=== PATIENT | male | born 1950 | race Caucasian/White ===

== ENCOUNTER 2016-12-17 04:19 | Emergency (ER) | payer MEDICARE ==
[2016-12-17 04:34] VITALS: RESP 18
--- NOTE | 2016-12-17 05:21 | XR ---
EXAM: XR Chest, 2 Views CLINICAL HISTORY: Reason: Cough and congestion TECHNIQUE: Frontal and lateral views of the chest. COMPARISON: No relevant prior studies available. FINDINGS: Lungs: Thin linear atelectasis or scarring at the left base. No defined infiltrate. Pleural space: Unremarkable. No effusion or pneumothorax. Heart: Unremarkable. No cardiomegaly. Mediastinum: Unremarkable. Bones/joints: Multilevel degenerative changes including spine and shoulders. IMPRESSION: No acute intrathoracic abnormality or etiology of the patient's symptoms detected.
--- NOTE | 2016-12-17 07:35 | ED ---
General Adult HPI - General Chief complaint: Upper Respiratory Infection Stated complaint: congestion Time Seen by Provider: 12/17/16 07:00 Source: patient, RN notes reviewed Mode of arrival: ambulatory Limitations: no limitations - History of Present Illness Initial comments: Patient is a pleasant 66-year-old male presenting to the emergency department with sinus congestion. Onset of symptoms was several days ago. Patient has drainage. Patient has a mild sore throat and occasional cough. No dyspnea. Patient did have fevers however those have resolved. Patient has had similar problems previously associated with sinus problems. - Related Data Previous Rx's Medication Instructions Recorded Amoxicillin 500 mg PO Q8H #30 capsule 12/17/16 Allergies Allergy/AdvReac Type Severity Reaction Status Date / Time No Known Allergies Allergy Verified 12/17/16 04:34 Review of Systems ROS Statement: Those systems with pertinent positive or pertinent negative responses have been documented in the HPI. ROS Other: All systems not noted in ROS Statement are negative. Constitutional: Denies: fever Eyes: Denies: eye pain ENT: Reports: ear pain, throat pain, congestion Respiratory: Reports: cough. Denies: dyspnea Cardiovascular: Denies: chest pain Endocrine: Denies: polydipsia Gastrointestinal: Denies: abdominal pain Genitourinary: Denies: urgency, dysuria Musculoskeletal: Denies: back pain Skin: Denies: rash Neurological: Denies: weakness Past Medical History Past Medical History: No Reported History History of Any Multi-Drug Resistant Organisms: None Reported Past Surgical History: Hernia Repair Additional Past Surgical History / Comment(s): achilles tendon, bilat Past Psychological History: No Psychological Hx Reported Smoking Status: Current every day smoker Past Alcohol Use History: Occasional General Exam Limitations: no limitations General appearance: alert, in no apparent distress Head exam: Present: atraumatic Eye exam: Present: normal appearance, PERRL ENT exam: Present: other (Mild pharyngeal erythema. Tenderness over the frontal , ethmoid, and maxillary sinuses.) Neck exam: Present: normal inspection. Absent: tenderness, meningismus, lymphadenopathy Respiratory exam: Present: normal lung sounds bilaterally Cardiovascular Exam: Present: regular rate, normal rhythm GI/Abdominal exam: Present: soft. Absent: tenderness Extremities exam: Present: normal inspection. Absent: pedal edema, calf tenderness Neurological exam: Present: alert Psychiatric exam: Present: normal affect, normal mood Skin exam: Present: normal color Course Vital Signs 12/17/16 04:30 Temperature 98.5 F Pulse Rate 79 Respiratory 18 Rate Blood Pressure 134/61 O2 Sat by Pulse 95 Oximetry Disposition Clinical Impression: Sinusitis Disposition: HOME SELF-CARE Condition: Stable Instructions: Sinusitis (ED) Additional Instructions: Please follow-up with primary care physician in the next few days for recheck. Return for difficulty breathing, fevers, worsening or changing symptoms or other concerns. Saline nasal spray 4 times daily. Prescriptions: Amoxicillin 500 mg PO Q8H #30 capsule Referrals: Jenaro Rivera DO [Primary Care Provider] - 1-2 days Time of Disposition: 07:35
[2016-12-17 07:53] VITALS: BP 123/64; PULSE 67; TEMP 97.3
== END 2016-12-17 07:53 | disposition home or self-care (01) ==
LOC: EC 04:19
DX: J32.9 Chronic sinusitis, unspecified (principal); F17.200 Nicotine dependence, unspecified, uncomplicated
CPT/HCPCS: 71020; 99283

== ENCOUNTER 2018-03-25 07:46 | Day surgery (SDC) | payer MEDICARE ==
[2018-03-24 08:25] VITALS: BMI 31.6
[~2018-03-25 07:46] MED LIST: LACTATED RINGERS 1,000 ML IV SCH
[2018-03-25 09:05] VITALS: TEMP 97
[2018-03-25] MEDS ORDERED: LIDOCAINE 1% 20 ML VIAL (10MG/ML) FOR IV START INTRADERMA ONE (09:12)
[2018-03-25] MEDS ORDERED: LIDOCAINE 1% INJ 10MG/ML (20 ML MDV) ONE (09:27)
[2018-03-25] MEDS ORDERED: PROPOFOL 10 MG/ML 20 ML VIAL IV ONE (09:27)
[2018-03-25 09:59] VITALS: RESP 18
--- NOTE | 2018-03-25 10:02 | P.PCN ---
Date of Procedure: 03/25/18 Procedure(s) Performed: Procedure: Total colonoscopy. Preoperative diagnosis: Screening for neoplasia. Postoperative diagnosis: Sigmoid diverticulosis with no evidence of acute diverticulitis, strictures, polyps or cancer. Preparation: HalfLytely prep. Sedation: Was provided by anesthesia. Brief clinical history: The patient is a 67-year-old male who is scheduled for this evaluation for screening for neoplasia age being his risk factor. His prior exam was in 2007. The patient has no abdominal complaints, bleeding or anemia. Procedure: With the patient on his left lateral decubitus position and after informed consent and adequate sedation, the perianal area was inspected and it did not show any fissures or fistulas. There were no masses felt on digital rectal examination. The Olympus CFQ 160L video colonoscope was then inserted in the rectum in the usual fashion and advanced to the cecum. There were several diverticular orifices seen scattered in the sigmoid but I saw no evidence of acute diverticulitis or strictures. No polyps or tumors were seen or any other pathology. I retroflexed the endoscope in the rectum before the endoscope was withdrawn. The patient tolerated the procedure well. Plan: The patient was reassured. Discussed dietary measures. He will follow up with you as planned and the exam in 10 years.
[2018-03-25 10:15] VITALS: BP 131/71; PULSE 52
== END 2018-03-25 10:36 | disposition home or self-care (01) ==
LOC: ORWHC2ENDO 07:46
DX: Z12.11 Encounter for screening for malignant neoplasm of colon (principal); K57.30 Diverticulosis of large intestine without perforation or abscess without bleeding; Z85.46 Personal history of malignant neoplasm of prostate; Z90.79 Acquired absence of other genital organ(s)
CPT/HCPCS: J2001; J2704; G0121

== ENCOUNTER → 2018-06-23 | Outpatient (CLI) | payer MEDICARE | END | disposition home or self-care (01) | LOC: LABWHC1 09:51 | PROVIDERS: ATTEND Family Medicine | DX: R73.03 Prediabetes (principal) | CPT/HCPCS: 97802 ==

== ENCOUNTER 2020-05-17 14:46 | Inpatient (IN) | payer MEDICARE ==
[2020-05-17] MEDS ORDERED: ACETAMINOPHEN TAB 500 MG TAB PO STA (14:56)
--- NOTE | 2020-05-17 15:00 | ED ---
General Adult HPI - General Stated complaint: Weakness/Fall Time Seen by Provider: 05/17/20 14:48 Source: patient, EMS Mode of arrival: EMS Limitations: no limitations - History of Present Illness Initial comments: 70-year-old male patient with a mostly benign past medical history presents to the emergency department today for evaluation of weakness, shortness of breath, multiple falls. Patient states that he worked in the yard all weekend. States Thursday evening he started to feel very weak and rundown. Patient states that at times he was unable to get out of his chair. States he's had 2 or 3 falls over the last couple of days. Denies any known injury. Patient states that he is also having some shortness of breath. Denies any cough, nasal congestion, sore throat. States he did have one episode of vomiting on Thursday. States that he has had some sweats which he assumed was related to fever so he has been taking Tylenol. Patient is somewhat confused and having difficulty with his timeline. Patient denies any recent rash, chest pain, abdominal pain, diarrhea, c onstipation, back pain, numbness, tingling, dizziness, hematuria, dysuria, urinary urgency, urinary frequency, headache, visual changes, or any other complaints. - Related Data Home Medications Medication Instructions Recorded Confirmed Atorvastatin [Lipitor] 20 mg PO DAILY 05/17/20 05/17/20 Chlorhexidine Gluconate [Peridex] 15 ml PO BID 05/17/20 05/17/20 Allergies Allergy/AdvReac Type Severity Reaction Status Date / Time No Known Allergies Allergy Verified 05/17/20 16:27 Review of Systems ROS Statement: Those systems with pertinent positive or pertinent negative responses have been documented in the HPI. ROS Other: All systems not noted in ROS Statement are negative. Past Medical History Past Medical History: Cancer Additional Past Medical History / Comment(s): PROSTATE CANCER History of Any Multi-Drug Resistant Organisms: None Reported Past Surgical History: Hernia Repair Additional Past Surgical History / Comment(s): achilles tendon- bilat ANKLES. COLONOSCOPY. PROSTATE REMOVED Past Anesthesia/Blood Transfusion Reactions: No Reported Reaction Past Psychological History: No Psychological Hx Reported Smoking Status: Current every day smoker Past Alcohol Use History: Occasional Past Drug Use History: None Reported - Past Family History Mother Family Medical History: No Reported History General Exam Limitations: no limitations General appearance: alert, in no apparent distress, other (This is a well- developed, well-nourished adult male patient in no acute distress. Vital signs upon presentation temperature 103.1F oral, pulse 96, respirations 20, blood pressure 127/64, pulse ox 97% on 2 L via nasal cannula.) Eye exam: Present: normal appearance, PERRL, EOMI. Absent: scleral icterus, conjunctival injection, periorbital swelling ENT exam: Present: normal exam, normal oropharynx, mucous membranes moist, other (Patient has a purple discoloration noted to the bilateral earlobes and pinna) Respiratory exam: Present: normal lung sounds bilaterally. Absent: respiratory distress, wheezes, rales, rhonchi, stridor Cardiovascular Exam: Present: regular rate, normal rhythm, normal heart sounds. Absent: systolic murmur, diastolic murmur, rubs, gallop, clicks GI/Abdominal exam: Present: soft, normal bowel sounds. Absent: distended, tenderness, guarding, rebound, rigid Neurological exam: Present: alert, CN II-XII intact. Absent: oriented X3 (Oriented 2) Psychiatric exam: Present: normal affect, normal mood Skin exam: Present: warm, dry, intact, normal color. Absent: rash Course Vital Signs 05/17/20 05/17/20 05/17/20 14:47 14:49 15:00 Temperature 103.1 F H Pulse Rate 96 Respiratory 20 Rate Blood Pressure 127/64 127/64 O2 Sat by Pulse 97 93 L 95 Oximetry 05/17/20 05/17/20 05/17/20 15:30 16:00 16:30 Temperature Pulse Rate Respiratory Rate Blood Pressure 128/61 128/68 103/58 O2 Sat by Pulse 94 L 96 Oximetry 05/17/20 05/17/20 05/17/20 17:00 17:30 17:43 Temperature 102.8 F H Pulse Rate Respiratory Rate Blood Pressure 118/52 128/60 O2 Sat by Pulse 97 97 Oximetry EKG Findings - EKG Comments: EKG Findings:: EKG obtained at 1509 shows sinus rhythm with marked sinus arrhythmia. Incomplete right bundle branch block. Ventricular rate of 90, [place] interval 152, QRS duration 102, QT 326, QTC 398. Medical Decision Making - Medical Decision Making 70-year-old male patient presented to the emergency department today for evaluation of increasing weakness, shortness of breath, sweats, and confusion. Physical examination did reveal clear equal lung sounds. He was 92-94% on room air upon arrival, tachypneic. Chest x-ray was obtained and did show an 8 cm masslike consolidation in the left upper lobe this was concerning for possible neoplasm. Labs reviewed and did reveal elevated white blood cell count at 15.4 with a left shift neutrophils at 14.2. D-dimer was 4.06. Sodium 129. BUN 32, glucose 158. LDH was 732, C-reactive protein 423.9. Chronic virus was negative. CT chest angiography was obtained to rule out pulmonary embolism and also evaluate the mass in the left lung. Results show evidence for consolidation consistent with bronchopneumonia. Patient be started on azithromycin, Zosyn, and Vanco for possible atypical pneumonia. We also did perform CT brain and C-spine as patient has had numerous falls and was somewhat confused upon arrival, this is negative for any acute injury. Patient will be admitted to the hospital, oxygen therapy continued. He will be rehydrated. Patient is agreeable with this plan. - Lab Data Result diagrams: 05/17/20 15:20 05/17/20 15:20 Lab Results 05/17/20 05/17/20 05/17/20 Range/Units 15:20 15:20 15:20 WBC 15.4 H (3.8-10.6) k/uL RBC 4.62 (4.30-5.90) m/uL Hgb 14.5 (13.0-17.5) gm/dL Hct 41.8 (39.0-53.0) % MCV 90.5 (80.0-100.0) fL MCH 31.4 (25.0-35.0) pg MCHC 34.7 (31.0-37.0) g/dL RDW 12.1 (11.5-15.5) % Plt Count 202 (150-450) k/uL MPV 6.8 Neutrophils % 93 % Lymphocytes % 2 % Monocytes % 3 % Eosinophils % 2 % Basophils % 1 % Neutrophils # 14.2 H (1.3-7.7) k/uL Lymphocytes # 0.3 L (1.0-4.8) k/uL Monocytes # 0.4 (0-1.0) k/uL Eosinophils # 0.2 (0-0.7) k/uL Basophils # 0.1 (0-0.2) k/uL PT 11.5 (9.0-12.0) sec INR 1.1 (<1.2) APTT 26.6 (22.0-30.0) sec D-Dimer 4.06 H (<0.60) mg/L FEU Sodium 129 L (137-145) mmol/L Potassium 4.1 (3.5-5.1) mmol/L Chloride 98 (98-107) mmol/L Carbon Dioxide 23 (22-30) mmol/L Anion Gap 8 mmol/L BUN 32 H (9-20) mg/dL Creatinine 1.22 (0.66-1.25) mg/dL Est GFR (CKD-EPI)AfAm 69 (>60 ml/min/1.73 sqM) Est GFR (CKD-EPI)NonAf 60 (>60 ml/min/1.73 sqM) Glucose 158 H (74-99) mg/dL Plasma Lactic Acid Lior (0.7-2.0) mmol/L Calcium 8.7 (8.4-10.2) mg/dL Magnesium 2.1 (1.6-2.3) mg/dL Total Bilirubin 0.8 (0.2-1.3) mg/dL AST 41 (17-59) U/L ALT 24 (4-49) U/L Alkaline Phosphatase 69 (38-126) U/L Lactate Dehydrogenase 732 H (313-618) U/L C-Reactive Protein 423.9 H (<10.0) mg/L Total Protein 7.1 (6.3-8.2) g/dL Albumin 3.8 (3.5-5.0) g/dL Coronavirus (PCR) (Not Detectd) 05/17/20 05/17/20 Range/Units 15:20 15:20 WBC (3.8-10.6) k/uL RBC (4.30-5.90) m/uL Hgb (13.0-17.5) gm/dL Hct (39.0-53.0) % MCV (80.0-100.0) fL MCH (25.0-35.0) pg MCHC (31.0-37.0) g/dL RDW (11.5-15.5) % Plt Count (150-450) k/uL MPV Neutrophils % % Lymphocytes % % Monocytes % % Eosinophils % % Basophils % % Neutrophils # (1.3-7.7) k/uL Lymphocytes # (1.0-4.8) k/uL Monocytes # (0-1.0) k/uL Eosinophils # (0-0.7) k/uL Basophils # (0-0.2) k/uL PT (9.0-12.0) sec INR (<1.2) APTT (22.0-30.0) sec D-Dimer (<0.60) mg/L FEU Sodium (137-145) mmol/L Potassium (3.5-5.1) mmol/L Chloride (98-107) mmol/L Carbon Dioxide (22-30) mmol/L Anion Gap mmol/L BUN (9-20) mg/dL Creatinine (0.66-1.25) mg/dL Est GFR (CKD-EPI)AfAm (>60 ml/min/1.73 sqM) Est GFR (CKD-EPI)NonAf (>60 ml/min/1.73 sqM) Glucose (74-99) mg/dL Plasma Lactic Acid Lior 1.7 (0.7-2.0) mmol/L Calcium (8.4-10.2) mg/dL Magnesium (1.6-2.3) mg/dL Total Bilirubin (0.2-1.3) mg/dL AST (17-59) U/L ALT (4-49) U/L Alkaline Phosphatase (38-126) U/L Lactate Dehydrogenase (313-618) U/L C-Reactive Protein (<10.0) mg/L Total Protein (6.3-8.2) g/dL Albumin (3.5-5.0) g/dL Coronavirus (PCR) Not Detected (Not Detectd) - Radiology Data Radiology results: report reviewed, image reviewed One view x-ray of the chest is obtained. Report was reviewed in its entirety. Impression by Dr. Helm shows suspicious left suprahilar mass or masslike consolidation new from prior study. Follow-up advised to rule out neoplasm. CT chest angiography for PE was obtained. Report was reviewed in its entirety. Impression by Dr. Barnes shows no evidence of pulmonary embolism. Left upper lobe airspace consolidation consistent with bronchopneumonia. CT brain C-spine without contrast is obtained. Report was reviewed in its entirety. Impression by Dr. Barnes shows negative computed tomography scan of the brain. Ethmoid sinusitis. Spondylotic changes of the cervical spine at C5 to 6 and C6 to 7. Moderate multilevel cervical hypertrophic facet arthrop athy. No fracture. Disposition Clinical Impression: Pneumonia Disposition: ADMITTED IP TO THIS [facility] Condition: Serious Decision to Admit Reason: Admit from EC Decision Date: 05/17/20 Decision Time: 17:31
[2020-05-17 15:36] LABS: Basophils # (A) 0.1 k/uL (0-0.2); Basophils % (A) 1 %; Eosinophils # (A) 0.2 k/uL (0-0.7); Eosinophils % (A) 2 %; HCT 41.8 % (39.0-53.0); HGB 14.5 gm/dL (13.0-17.5); Lymphocytes # (A) 0.3 k/uL (1.0-4.8); Lymphocytes % (A) 2 %; MCH 31.4 pg (25.0-35.0); MCHC 34.7 g/dL (31.0-37.0); MCV 90.5 fL (80.0-100.0); Mean Platelet Volume 6.8; Monocytes # (A) 0.4 k/uL (0-1.0); Monocytes % (A) 3 %; Neutrophils # (A) 14.2 k/uL (1.3-7.7); Neutrophils % (A) 93 %; Platelet Count 202 k/uL (150-450); RBC 4.62 m/uL (4.30-5.90); RDW 12.1 % (11.5-15.5); WBC 15.4 k/uL (3.8-10.6)
[2020-05-17] MEDS ORDERED: RX INFO: IV CONTRAST WAS GIVEN 1 EACH MISC MISCELLANE PRN (15:46)
[2020-05-17 15:49] LABS: Albumin 3.8 g/dL (3.5-5.0); Calcium 8.7 mg/dL (8.4-10.2); Magnesium 2.1 mg/dL (1.6-2.3); Potassium 4.1 mmol/L (3.5-5.1); Total Bilirubin 0.8 mg/dL (0.2-1.3); Total Protein 7.1 g/dL (6.3-8.2)
--- NOTE | 2020-05-17 15:50 | XR ---
EXAMINATION TYPE: XR chest 1V portable DATE OF EXAM: 05/17/2020 COMPARISON: Chest x-ray December 17, 2016.r HISTORY: Weakness. Fall injury. TECHNIQUE: Single AP portable frontal upright view of the chest is obtained. FINDINGS: There is new nearly 8 cm left suprahilar masslike consolidation . Diminished inspiration o n current study. The cardiac silhouette size is more prominent upper limits of normal. Stable lateral left basilar linear scarring and/or atelectasis. The osseous structures are intact. IMPRESSION: Suspicious left suprahilar mass or masslike consolidation new from prior study. Follow-u p advised to rule out neoplasm.
[2020-05-17 16:11] LABS: INR 1.1 (<1.2); Partial Thromboplastin Time 26.6 sec (22.0-30.0); Prothrombin Time 11.5 sec (9.0-12.0)
[2020-05-17 16:17] LABS: D-Dimer 4.06 mg/L FEU (<0.60)
[2020-05-17 16:23] LABS: C Reactive Protein 423.9 mg/L (<10.0)
[2020-05-17] MEDS ORDERED: PIPERACILLIN-TAZOBACTAM 3.375 GM in SODIUM CHLORIDE 0.9% 100 ML IVPB STA (16:39)
[2020-05-17] MEDS ORDERED: VANCOMYCIN IV PER PHARMACY 1 EACH MISC MISCELLANE PRN (16:40)
[2020-05-17] MEDS ORDERED: AZITHROMYCIN 500 MG in SODIUM CHLORIDE 0.9% 250 ML IVPB STA (16:40)
[2020-05-17] MEDS ORDERED: VANCOMYCIN 2,000 MG in SODIUM CHLORIDE 0.9% 500 ML 500 ML IVPB STA (16:52)
--- NOTE | 2020-05-17 17:13 | CT ---
EXAMINATION TYPE: CT chest angio for PE DATE OF EXAM: 05/17/2020 COMPARISON: None HISTORY: Abnormal CXR and labwork CT DLP: 576.7 mGycm Automated exposure control for dose reduction was used. CONTRAST: Performed with IV Contrast, patient injected with 100 mL of Isovue 370. There are 3-D post processed images. There is a 10 x 5 cm area of airspace consolidation in the left upper lobe adjacent to the major fiss ure. The other lung diaz are fairly clear. There is mild subsegmental atelectasis at the lung bases . Heart size is normal. There is no pericardial effusion. There is no pleural effusion. There is no mediastinal adenopathy. There are no hilar masses. There is normal contrast opacification of the pulmonary arteries. There are no filling defects. Bony thorax is intact. There is spurring in the thoracic spine. There is no compression fracture. Elio rnum is intact. Thoracic aorta is intact. There is no aneurysm or dissection. The ascending aorta barbara sures 3.3 cm. IMPRESSION: No evidence of pulmonary embolism. Left upper lobe airspace consolidation consistent with bronchopneu monia.
--- NOTE | 2020-05-17 17:17 | CT ---
EXAMINATION TYPE: CT brain francesco wo con DATE OF EXAM: 05/17/2020 COMPARISON: None HISTORY: Shortness of breath. CT DLP: 1762.9 mGycm Automated exposure control for dose reduction was used. There is no mass effect nor midline shift. There is no sign of intracranial hemorrhage. Ventricles rasmussen ve normal size. Calvarium is intact. There is no evidence of cerebral edema. Sella turcica appears no rmal. There is some ethmoid sinus mucosal thickening. Skull base is intact. There is normal aeration of the mastoid sinuses. Cervical vertebra have normal alignment. There is mild narrowing of C5-6 and C6-7 disc spaces with sp ur formation. There is mild multilevel cervical facet arthropathy. There is no evidence of cervical s pine fracture. IMPRESSION: Negative CT scan of the brain. Ethmoid sinusitis. Spondylotic changes in the cervical spine at C5-6 and C6-7. Moderate multilevel cervical hypertrophic facet arthropathy. No fracture.
[2020-05-17] MEDS ORDERED: PNEUMONIA PROTOCOL UTILIZED 1 EACH MISC PO PRN (17:29)
[2020-05-17] MEDS ORDERED: SODIUM CHLORIDE 0.9% 1,000 ML IV SCH (17:30)
[2020-05-17] MEDS ORDERED: IBUPROFEN 600 MG TAB PO STA (17:47)
[2020-05-17] MEDS ORDERED: SODIUM CHLORIDE 0.9% 1,000 ML IV ONE (17:49)
[2020-05-18 00:22] LABS: Appearance,Urine Clear (Clear); Bilirubin,Urine Negative (Negative); Blood,Urine Small (Negative); Color,Urine Yellow; Glucose,Urine (UA) Negative (Negative); Ketones,Urine 1+ (Negative); Leukocyte Esterase,Urine Negative (Negative); Mucus,Urine Rare /hpf; Nitrite,Urine Negative (Negative); Protein,Urine 1+ (Negative); RBC,Urine 4 /hpf (0-5); Specific Gravity,Urine >1.050 (1.001-1.035); Urobilinogen,Urine <2.0 mg/dL (<2.0); WBC,Urine 2 /hpf (0-5)
[2020-05-18] MEDS: PIPERACILLIN-TAZOBACTAM 3.375 GM in SODIUM CHLORIDE 0.9% 100 ML IVPB SCH ×4 (00:51→23:00)
[2020-05-18] MEDS: ACETAMINOPHEN TAB 500 MG TAB PO PRN ×4 (00:51→17:44)
[2020-05-18 03:28] LABS: Ferritin 815.8 ng/mL (22.0-322.0)
--- NOTE | 2020-05-18 06:52 | XR ---
EXAMINATION TYPE: XR chest 1V portable DATE OF EXAM: 05/18/2020 CLINICAL HISTORY: Difficulty breathing and covid-19 pneumonia progress study. TECHNIQUE: 2 AP portable frontal upright views of the chest are obtained. COMPARISON: Chest x-ray and CTA chest from one day earlier FINDINGS: Worsening masslike consolidation in the left upper lobe. Right lung is clear. No pleural e ffusion or pneumothorax seen bilaterally. Cardiac silhouette size stable and upper limits of normal w ith atherosclerotic change aortic knob. Degenerative change left glenohumeral joint noted. IMPRESSION: Worsening left upper lobe pneumonic consolidation
[2020-05-18] MEDS ORDERED: VANCOMYCIN 1,750 MG in SODIUM CHLORIDE 0.9% 500 ML 500 ML IVPB SCH (08:00)
[2020-05-18] MEDS ORDERED: DILTIAZEM DRIP BOLUS FROM BAG 1 MG SOLN IV ONE (08:29)
[2020-05-18] MEDS ORDERED: HEPARIN SODIUM,PORCINE 5,000 UNIT/ML 1 ML VIAL IV ONE (08:50)
[2020-05-18] MEDS ORDERED: HEPARIN SODIUM,PORCINE 5,000 UNIT/ML 1 ML VIAL IV PRN (08:50)
[2020-05-18] MEDS: DILTIAZEM 125 MG in SODIUM CHLORIDE 0.9% 100 ML IV SCH (09:07)
[2020-05-18] MEDS: HEPARIN SOD,PORK IN 0.45% NACL 25,000 UNIT in 0.45% NACL 1 250ML.BAG IV SCH (10:09)
[2020-05-18] MEDS: AZITHROMYCIN 500 MG in SODIUM CHLORIDE 0.9% 250 ML IVPB SCH (10:19)
[2020-05-18] MEDS: METOPROLOL TARTRATE 25 MG TAB PO SCH ×2 (10:22→21:03)
--- NOTE | 2020-05-18 11:27 | P.CRDCN ---
History of Present Illness Consult date: 05/18/20 History of present illness: CHIEF COMPLAINT: A. fib with RVR HISTORY OF PRESENT ILLNESS: This is a 70-year-old male with a past medical history significant for hyperlipidemia, prostate cancer, and nicotine dependence. 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 We have been asked to see the patient in consultation for A. fib with RVR. Patient initially presented to the hospital secondary to generalized weakness, fever, and shortness of breath. Patient thought he may have Covid. He was tested in the emergency room and was found to be negative. Initial EKG revealed sinus rhythm. However patient developed A. fib with RVR while in the emergency room. Patient examined at the bedside in the emergency room. Patient states he had an episode of atrial fibrillation approximately 20 years ago. He currently reports shortness of breath. He reports chest discomfort with deep inspiration otherwise he denies chest pain. He continues to feel very weak. He reports feeling palpitations. DIAGNOSTICS: EKG reveals A. fib with RVR Chest xray worsening left upper lobe consolidation Laboratory data: WBC 15.4. Hemoglobin 14.5. Platelet count 202. D-dimer 4.06. Sodium 129. Potassium 4.1. BUN 32. Creatinine 1.22. Lactic acid 1.7. Current home cardiac medications include Lipitor 20 mg daily REVIEW OF SYSTEMS: At the time of my exam: CONSTITUTIONAL: Denies fever or chills. HEENT: Denies blurred vision, vision changes, or eye pain. Denies hemoptysis CARDIOVASCULAR: Reports chest discomfort with deep inspiration. Reports palpitations. RESPIRATORY: Reports shortness of breath. GASTROINTESTINAL: Denies abdominal pain. Denies nausea or vomiting. HEMATOLOGIC: Denies bleeding disorders. GENITOURINARY: Denies any blood in urine. SKIN: Denies pruitis. Denies rash. PHYSICAL EXAM: VITAL SIGNS: Reviewed. GENERAL: Well-developed in no acute distress. HEENT: Head is normocephalic. Pupils are equal, round. Sclerae anicteric. Mucous membranes of the mouth are moist. Neck supple. No JVD or thyromegaly LUNGS: Respirations even and unlabored. Lungs diminished. HEART: Irregular rate and rhythm. S1 and S2 heard. ABDOMEN: Soft. Nondistended. Nontender. EXTREMITIES: Normal range of motion. No clubbing or cyanosis. Peripheral pulses intact. No lower extremity edema NEUROLOGIC: Awake and alert. Oriented x 3. ASSESSMENT: Right sided pneumonia New-onset A. fib with RVR Hyperlipidemia Nicotine dependence PLAN: Check TSH Obtain 2-D echo to assess cardiac structure and function Begin Cardizem drip at 5 mg Begin IV heparin Further recommendations pending patient's course Nurse practitioner note has been reviewed by physician. Signing provider agrees with the documented findings, assessment, and plan of care. Past Medical History Past Medical History: Cancer Additional Past Medical History / Comment(s): PROSTATE CANCER History of Any Multi-Drug Resistant Organisms: None Reported Past Surgical History: Hernia Repair Additional Past Surgical History / Comment(s): achilles tendon- bilat ANKLES. COLONOSCOPY. PROSTATE REMOVED Past Anesthesia/Blood Transfusion Reactions: No Reported Reaction Past Psychological History: No Psychological Hx Reported Smoking Status: Current every day smoker Past Alcohol Use History: Occasional Additional Past Alcohol Use History / Comment(s): SMOKING 1 PPD-FOR PAST 40 YEARS Past Drug Use History: None Reported Additional Drug Use History / Comment(s): drinks 6 beers a week - Past Family History Mother Family Medical History: No Reported History Medications and Allergies Home Medications Medication Instructions Recorded Confirmed Type Atorvastatin [Lipitor] 20 mg PO DAILY 05/17/20 05/17/20 History Chlorhexidine Gluconate [Peridex] 15 ml PO BID 05/17/20 05/17/20 History Allergies Allergy/AdvReac Type Severity Reaction Status Date / Time No Known Allergies Allergy Verified 05/17/20 16:27 Physical Exam Vitals: Vital Signs Temp Pulse Pulse Resp BP BP Pulse Ox 05/18/20 10:49 98.1 F 105 H 20 130/68 97 05/18/20 07:52 99.7 F H 117 H 18 103/75 99 05/18/20 05:53 99.6 F 77 16 92/60 95 05/18/20 04:50 103.0 F H 05/18/20 00:50 102.8 F H 05/17/20 23:00 18 115/66 97 05/17/20 20:41 98.2 F 05/17/20 17:43 102.8 F H 05/17/20 17:30 128/60 97 05/17/20 17:00 118/52 97 05/17/20 16:30 103/58 96 05/17/20 16:00 128/68 94 L 05/17/20 15:30 128/61 05/17/20 15:00 127/64 95 05/17/20 14:49 93 L 05/17/20 14:47 103.1 F H 96 20 127/64 97 Intake and Output 05/17/20 05/18/20 05/18/20 22:59 06:59 14:59 Other: Weight 113.398 kg Results 05/17/20 15:20 05/17/20 15:20 Cardiac Enzymes 05/17/20 Range/Units 15:20 AST 41 (17-59) U/L Lactate Dehydrogenase 732 H (313-618) U/L Coagulation 05/17/20 Range/Units 15:20 PT 11.5 (9.0-12.0) sec APTT 26.6 (22.0-30.0) sec CBC 05/17/20 Range/Units 15:20 WBC 15.4 H (3.8-10.6) k/uL RBC 4.62 (4.30-5.90) m/uL Hgb 14.5 (13.0-17.5) gm/dL Hct 41.8 (39.0-53.0) % Plt Count 202 (150-450) k/uL Comprehensive Metabolic Panel 05/17/20 Range/Units 15:20 Sodium 129 L (137-145) mmol/L Potassium 4.1 (3.5-5.1) mmol/L Chloride 98 (98-107) mmol/L Carbon Dioxide 23 (22-30) mmol/L BUN 32 H (9-20) mg/dL Creatinine 1.22 (0.66-1.25) mg/dL Glucose 158 H (74-99) mg/dL Calcium 8.7 (8.4-10.2) mg/dL AST 41 (17-59) U/L ALT 24 (4-49) U/L Alkaline Phosphatase 69 (38-126) U/L Total Protein 7.1 (6.3-8.2) g/dL Albumin 3.8 (3.5-5.0) g/dL Current Medications Generic Name Dose Route Start Last Admin Trade Name Freq PRN Reason Stop Dose Admin Acetaminophen 1,000 mg 05/17/20 17:47 05/18/20 04:53 Acetaminophen Tab 500 Mg Tab PO 1,000 mg Q6HR PRN Administration Fever and/ or Pain Atorvastatin Calcium 20 mg 05/18/20 09:00 Atorvastatin 20 Mg Tab PO DAILY KAN Heparin Sodium (Porcine) 0 unit 05/18/20 08:50 Heparin Sodium,Porcine 5,000 Unit/Ml 1 Ml Vial IV PER PROTOCOL PRN Low PTT Protocol Vancomycin HCl 1,750 mg/ 500 mls @ 167 mls/hr 05/18/20 08:00 Sodium Chloride IVPB Q12H KAN Sodium Chloride 1,000 mls @ 80 mls/hr 05/17/20 17:30 05/17/20 18:04 Saline 0.9% IV 80 mls/hr .[id number] KAN Administration Piperacillin Sod/Tazobactam 100 mls @ 25 mls/hr 05/18/20 00:00 05/18/20 10:09 Sod 3.375 gm/ Sodium Chloride IVPB 05/25/20 00:01 25 mls/hr Q8HR KAN Administration Azithromycin 500 mg/ Sodium 250 mls @ 250 mls/hr 05/18/20 09:00 05/18/20 10:19 Chloride IVPB 250 mls/hr DAILY KAN Administration Diltiazem HCl 125 mg/ Sodium 125 mls @ 5 mls/hr 05/18/20 08:30 05/18/20 09:07 Chloride IV Not Given .Q24H KAN 5 MG/HR Heparin Sodium/Sodium Chloride 250 mls @ 9.979 mls/hr 05/18/20 09:00 05/18/20 10:09 25,000 unit/ Sodium Chloride IV 8.8 units/kg/hr .Q24H KAN 9.979 mls/hr Administration Protocol 8.8 UNITS/KG/HR Metoprolol Tartrate 25 mg 05/18/20 09:00 05/18/20 10:22 Metoprolol Tartrate 25 Mg Tab PO 25 mg BID KAN Administration Miscellaneous Information 1 each 05/17/20 15:46 Rx Info: Iv Contrast Was Given 1 Each Misc MISCELLANE 05/19/20 15:46 DAILY PRN Per Protocol Miscellaneous Information 1 each 05/17/20 17:29 Pneumonia Protocol Utilized 1 Each Misc PO ONCE PRN Per Protocol Miscellaneous Information 0 each 05/19/20 19:00 Vancomycin Trough Due 1 Each Misc MISCELLANE 05/19/20 19:01 DIRECTED ONE Intake and Output 05/17/20 05/18/20 05/18/20 22:59 06:59 14:59 Other: Weight 113.398 kg Patient Weight 05/19/20 06:59 Weight 113.398 kg 05/17/20 15:20 05/17/20 15:20
[2020-05-18] MEDS: ATORVASTATIN 20 MG TAB PO SCH (11:35)
--- NOTE | 2020-05-18 11:39 | ECHOF ---
Referral Reason:new onset afib, LV function MEASUREMENTS -------- HEIGHT: 182.9 cm WEIGHT: 113.4 kg BP: RVIDd: 2.7 cm (< 3.3) IVSd: 1.4 cm (0.6 - 1.1) LVIDd: 4.3 cm (3.9 - 5.3) LVPWd: 1.4 cm (0.6 - 1.1) IVSs: 1.8 cm LVIDs: 3.6 cm LVPWs: 2.1 cm LA Diam: 1.8 cm (2.7 - 3.8) Ao Diam: 3.7 cm (2.0 - 3.7) RAP: 5.00 mmHg RVSP: 16.42 mmHg FINDINGS -------- Atrial fibrillation. This was a techncally difficult study with suboptimal views, , Definity utilized for enhancement of i mages. The left ventricular size is normal. There is mild concentric left ventricular hypertrophy. Overa ll left ventricular systolic function is low-normal with, an EF between 50 - 55 %. The right ventricle is normal in size. The left atrial size is normal. The right atrial size is normal. Lumason used There is mild aortic valve sclerosis. The mitral valve was not well visualized. There is trace mitral regurgitation. The tricuspid valve appears structurally normal. Trace tricuspid regurgitation present. Right bill tricular systolic pressure is normal at < 35 mmHg. Unable to estimate RVSP due to inadequate TR jet spectral doppler profile. The pulmonic valve was not well visualized. The aortic root size is normal. There is no pericardial effusion. CONCLUSIONS -------- 1. This was a techncally difficult study with suboptimal views, , Definity utilized for enhancement o f images. 2. There is mild concentric left ventricular hypertrophy. 3. Overall left ventricular systolic function is low-normal with, an EF between 50 - 55 %. 4. The left atrial size is normal. 5. Lumason used 6. There is mild aortic valve sclerosis. 7. There is trace mitral regurgitation. 8. Trace tricuspid regurgitation present. 9. The pulmonic valve was not well visualized. TOP BOTTOM ATTACHING MACHINE OPERATOR: Kim Sullivan RDCS
[2020-05-18 11:43] LABS: Basophils % (A) 0 %; Eosinophils % (A) 0 %; HCT 44.2 % (39.0-53.0); HGB 14.8 gm/dL (13.0-17.5); Lymphocytes # (A) 0.5 k/uL (1.0-4.8); Lymphocytes % (A) 4 %; MCH 30.8 pg (25.0-35.0); MCHC 33.5 g/dL (31.0-37.0); Mean Platelet Volume 9.1; Monocytes # (A) 0.5 k/uL (0-1.0); Monocytes % (A) 4 %; Neutrophils # (A) 13.7 k/uL (1.3-7.7); Neutrophils % (A) 92 %; Platelet Count 235 k/uL (150-450); RDW 12.7 % (11.5-15.5); WBC 14.9 k/uL (3.8-10.6)
[2020-05-18 12:19] LABS: INR 1.2 (<1.2); Partial Thromboplastin Time 56.5 sec (22.0-30.0); Prothrombin Time 12.2 sec (9.0-12.0)
[2020-05-18] MEDS ORDERED: ENOXAPARIN 40 MG/0.4 ML SYRINGE SQ SCH (13:15)
[2020-05-18] MEDS: LACTATED RINGERS 1,000 ML IV SCH ×2 (14:11→22:59)
[2020-05-18] MEDS: ALBUTEROL HFA INHALER INHALATION SCH ×2 (16:58→20:59)
[2020-05-18] MEDS ORDERED: FUROSEMIDE 10 MG/ML 2 ML VIAL IV ONE (17:47)
[2020-05-18] MEDS ORDERED: FUROSEMIDE 10 MG/ML 2 ML VIAL ONE (17:47)
[2020-05-18] MEDS: TAMSULOSIN 0.4 MG CAP.ER.24H PO SCH (18:04)
[2020-05-18] MEDS: DEXAMETHASONE SOD PHOSPHATE 10 MG/ML 1 ML VIAL IV SCH (18:04)
--- NOTE | 2020-05-18 18:17 | P.PN ---
Progress Note - Text Progress Note Date: 05/18/20 Rapid response team was activated on this patient due to hypoxia. Oxygen saturations were down to 82% on 2 L. Patient was immediately switched to high flow nasal cannula at 10 L. He is also febrile with a temperature of 103. Rest of his vital signs were okay. On exam patient seemed tachypniec, using accessory muscles and not able to finish sentences. He is slightly confused currently, not able to provide a coherent history. Chest examination revealed diffuse crackles all over the chest diaz. Prior workup was reviewed, it seems like he likely has suspected 19 pneumonia as well as atrial fibrillation with RVR. Plan -Pulmonary critical care consult -Start Decadron -Lasix 20 mg IV 1 -ABG stat -High flow NC -Continue abx Code status discussed patient wants to be full code.
[2020-05-18 18:35] LABS: ABG PCO2 33 mmHg (35-45); ABG PH 7.44 (7.35-7.45); Allen Test Performed? Yes
[2020-05-18 18:36] LABS: ABG Base Excess -1.4 mmol/L; ABG HCO3 23 mmol/L (21-25); ABG PO2 63 mmHg (83-108); ABG TCO2 24 mmol/L (19-24)
[2020-05-18] MEDS ORDERED: IPRATROPIUM-ALBUTEROL 3 ML NEB INHALATION SCH (20:00)
--- NOTE | 2020-05-18 20:52 | P.HPIM ---
History of Present Illness H&P Date: 05/18/20 Chief Complaint: Short of breath History of presenting complaint: This is 70-year-old patient who was working in his yard all weekend. Thursday evening he started feeling very weak and rundown. To the point that he is unable to get out of his chair. As a result. 2 or 3 falls last couple days. Also short of breath. He had vomited 1. Also spoke perspiring. Patient was somewhat delirious. No diarrhea no constipation no back pain no urinary symptoms. Normally in good health. Long-standing smoker. No stigmata history this morning sometimes being distant with his history. Patient developed A. fib with rapid ventricular rate in the ER without in the 150s. Started IV heparin and Cardizem drip. Review of systems: GEN.: Peak tired rundown and febrile EYES: None HEENT: None NECK: None RESPIRATORY: Cough shortness of breath CARDIOVASCULAR: None GASTROINTESTINAL: None GENITOURINARY: None MUSCULOSKELETAL: None LYMPHATICS: None HEMATOLOGICAL: None PSYCHIATRY: Per delirious NEUROLOGICAL: No focal weakness INVESTIGATIONS, reviewed in the clinical context: Prostate cancer, hernia repair, Achilles tendon repair, prostatectomy Social history: Patient has a [email or web address] business. Smokes a pack a day for close to 40 years. Drinks about 6 beers a week. . Family history: Reviewed, noncontributory to presentation Physical examination: VITAL SIGNS: 103, 117, 22, 103 with 75, 90% on room air GENERAL: BMI 30.4, propped in bed, tired a bit delirious. EYES: Pupils equal. Conjunctiva normal. HEENT: External appearance of nose and ears normal, oral cavity grossly normal. NECK: JVD not raised; masses not palpable. HEART: First and second heart sounds are normal; no edema. LUNGS: Respiratory rate increased, some decreased breaths on some crackles. ABDOMEN: Soft, nontender, liver spleen not palpable, no masses palpable. PSYCH: Able to answer some questions otherwise deliriousl. NEUROLOGICAL: Cranial nerves grossly intact; no facial asymmetry, power and sensation grossly intact. LYMPHATICS: No lymph nodes palpable in the axilla and neck INVESTIGATIONS, reviewed in the clinical context: White count 15.4 neutrophils 14.2 lymphocytes decreased to 0.3 D-dimer 4.06 sodium 129 creatinine 1.2 to LDH 732 CRP 423.9 protocol Gisella and 1.11 Coronavirus P/Cr-not detected Chest x-ray film personally reviewed by me-large area of consolidation on the left upper lobe Chest CTA-negative for PE, left upper lobe airspace consolidation EKG tracing personally reviewed by me-normal sinus rhythm 2-D echocardiogram-EF 50-55% Assessment: -Large left upper lobar pneumonia, suspect gram-negative organism -Severe sepsis secondary to above -Acute delirium but embolic encephalopathy from above -Hyponatremia likely from decreased fluid intake -Clinical dehydration -Paroxysmal Atrial fibrillation with a rapid ventricular rate. With a prior h istory of the same Plan: Patient was started on IV Zosyn bronchodilator. Patient also put on IV heparin and IV Cardizem drip. Consultation was made to pulmonary and cardiology. Also put on IV fluids 1 25 mL an hour. Past Medical History Past Medical History: Cancer Additional Past Medical History / Comment(s): PROSTATE CANCER History of Any Multi-Drug Resistant Organisms: None Reported Past Surgical History: Hernia Repair Additional Past Surgical History / Comment(s): achilles tendon- bilat ANKLES. COLONOSCOPY. PROSTATE REMOVED Past Anesthesia/Blood Transfusion Reactions: No Reported Reaction Past Psychological History: No Psychological Hx Reported Smoking Status: Current every day smoker Past Alcohol Use History: Occasional Past Drug Use History: None Reported - Past Family History Mother Family Medical History: No Reported History Medications and Allergies Home Medications Medication Instructions Recorded Confirmed Type Atorvastatin [Lipitor] 20 mg PO DAILY 05/17/20 05/17/20 History Chlorhexidine Gluconate [Peridex] 15 ml PO BID 05/17/20 05/17/20 History Allergies Allergy/AdvReac Type Severity Reaction Status Date / Time No Known Allergies Allergy Verified 05/17/20 16:27 Physical Exam Vitals: Vital Signs Temp Pulse Resp BP Pulse Ox 05/18/20 07:52 99.7 F H 117 H 18 103/75 99 05/18/20 05:53 99.6 F 77 16 92/60 95 05/18/20 04:50 103.0 F H 05/18/20 00:50 102.8 F H 05/17/20 23:00 18 115/66 97 05/17/20 20:41 98.2 F 05/17/20 17:43 102.8 F H 05/17/20 17:30 128/60 97 05/17/20 17:00 118/52 97 05/17/20 16:30 103/58 96 05/17/20 16:00 128/68 94 L 05/17/20 15:30 128/61 05/17/20 15:00 127/64 95 05/17/20 14:49 93 L 05/17/20 14:47 103.1 F H 96 20 127/64 97 Results CBC & Chem 7: 05/18/20 09:19 05/17/20 15:20 Labs: Abnormal Lab Results - Last 24 Hours (Table) 05/17/20 05/17/20 05/17/20 Range/Units 15:20 15:20 15:20 WBC 15.4 H (3.8-10.6) k/uL Neutrophils # 14.2 H (1.3-7.7) k/uL Lymphocytes # 0.3 L (1.0-4.8) k/uL D-Dimer 4.06 H (<0.60) mg/L FEU Sodium 129 L (137-145) mmol/L BUN 32 H (9-20) mg/dL Glucose 158 H (74-99) mg/dL Ferritin 815.8 H (22.0-322.0) ng/mL Lactate Dehydrogenase 732 H (313-618) U/L C-Reactive Protein 423.9 H (<10.0) mg/L Procalcitonin (0.02-0.09) ng/mL Ur Specific [place] (1.001-1.035) Urine Protein (Negative) Urine Ketones (Negative) Urine Blood (Negative) Urine Mucus (None) /hpf 05/17/20 05/18/20 Range/Units 15:20 00:10 WBC (3.8-10.6) k/uL Neutrophils # (1.3-7.7) k/uL Lymphocytes # (1.0-4.8) k/uL D-Dimer (<0.60) mg/L FEU Sodium (137-145) mmol/L BUN (9-20) mg/dL Glucose (74-99) mg/dL Ferritin (22.0-322.0) ng/mL Lactate Dehydrogenase (313-618) U/L C-Reactive Protein (<10.0) mg/L Procalcitonin 1.11 H (0.02-0.09) ng/mL Ur Specific [place] >1.050 H (1.001-1.035) Urine Protein 1+ H (Negative) Urine Ketones 1+ H (Negative) Urine Blood Small H (Negative) Urine Mucus Rare H (None) /hpf
[2020-05-18] MEDS: VANCOMYCIN 1,750 MG in SODIUM CHLORIDE 0.9% 500 ML 500 ML IVPB SCH (22:52)
[2020-05-19] MEDS: ALBUTEROL HFA INHALER INHALATION SCH ×4 (00:37→11:54)
[2020-05-19] MEDS ORDERED: ALPRAZolam 0.25 MG TAB PO STA (03:43)
[2020-05-19] MEDS ORDERED: FUROSEMIDE 10 MG/ML 4 ML VIAL IV STA (03:45)
--- NOTE | 2020-05-19 03:54 | XR ---
EXAM: XR Chest, 1 View CLINICAL HISTORY: ITS.REASON XR Reason: respiratory distress TECHNIQUE: Frontal view of the chest. COMPARISON: 05/18/2020. FINDINGS: Lungs: There is been worsening and increasing size of the left upper lobe pneumonia extending to the left midlung zone and the left apex. Right lung is well aerated. Pleural space: Unremarkable. No pneumothorax. Heart: Mild cardiomegaly. Mediastinum: Unremarkable. Bones/joints: The ribs are unremarkable. IMPRESSION: 1. Worsening and progression of left upper lobe pneumonia. 2. Cardiomegaly, unchanged. 3. Osteopenia.
--- NOTE | 2020-05-19 03:57 | P.EN ---
A Team note Patient seen at the bedside after activation of A-team. Patient reports feeling somewhat congested and short of breath, slightly worse from earlier. Denied chest pain. Vital signs at the bedside revealed a temperature of 99.0, pulse 92, BP 161/74, and SpO2 92-94% on 15 L of nasal cannula. Physical exam revealed a male in mild respiratory distress, slight conversational dyspnea with some accessory muscle use. Lungs examination revealed diffuse rhonchi with minimal bibasilar rales. Lower extremity examination revealed no edema. Chest x-ray image was reviewed, showing somewhat worsening left upper lobe airway disease with low suspicion for CHF and fluid overload. Echocardiogram was reviewed. The patient is receiving antibiotics with azithromycin, Zosyn, and vancomycin. He was also started on dexamethasone due to high suspicion for Covid pneumonia despite a negative rapid test. A CTA was negative for PE on admission. Lasix 40 mg IV push was ordered and patient was placed on BiPAP. RN notified the primary provider.
[2020-05-19] MEDS: ACETAMINOPHEN TAB 500 MG TAB PO PRN ×3 (03:59→20:16)
[2020-05-19] MEDS: HEPARIN SOD,PORK IN 0.45% NACL 25,000 UNIT in 0.45% NACL 1 250ML.BAG IV SCH (04:02)
[2020-05-19 04:43] LABS: Basophils % (A) 0 %; Eosinophils # (A) 0.1 k/uL (0-0.7); Eosinophils % (A) 1 %; HCT 34.8 % (39.0-53.0); HGB 12.1 gm/dL (13.0-17.5); Lymphocytes # (A) 0.3 k/uL (1.0-4.8); Lymphocytes % (A) 2 %; MCH 31.8 pg (25.0-35.0); MCHC 34.9 g/dL (31.0-37.0); MCV 91.3 fL (80.0-100.0); Mean Platelet Volume 7.2; Monocytes # (A) 0.2 k/uL (0-1.0); Monocytes % (A) 1 %; Neutrophils # (A) 12.4 k/uL (1.3-7.7); Neutrophils % (A) 95 %; Platelet Count 205 k/uL (150-450); RBC 3.81 m/uL (4.30-5.90); RDW 12.3 % (11.5-15.5)
[2020-05-19 05:22] LABS: African American GFR (CKD) >90 (>60 ml/min/1.73 sqM); Non-African American GFR(CKD) 81 (>60 ml/min/1.73 sqM)
[2020-05-19] MEDS: LACTATED RINGERS 1,000 ML IV SCH ×2 (10:06→15:46)
[2020-05-19] MEDS: DILTIAZEM 125 MG in SODIUM CHLORIDE 0.9% 100 ML IV SCH (10:07)
[2020-05-19] MEDS: PIPERACILLIN-TAZOBACTAM 3.375 GM in SODIUM CHLORIDE 0.9% 100 ML IVPB SCH ×2 (10:08→17:44)
[2020-05-19] MEDS: DEXAMETHASONE SOD PHOSPHATE 10 MG/ML 1 ML VIAL IV SCH (10:09)
[2020-05-19] MEDS: ATORVASTATIN 20 MG TAB PO SCH (10:09)
[2020-05-19] MEDS: METOPROLOL TARTRATE 25 MG TAB PO SCH ×2 (10:09→20:16)
[2020-05-19] MEDS: AZITHROMYCIN 500 MG in SODIUM CHLORIDE 0.9% 250 ML IVPB SCH (10:09)
[2020-05-19] MEDS: VANCOMYCIN 1,750 MG in SODIUM CHLORIDE 0.9% 500 ML 500 ML IVPB SCH (12:15)
--- NOTE | 2020-05-19 12:35 | P.PN ---
Subjective Progress Note Date: 05/19/20 Physical pleasant 70-year-old with a past medical history significant for hyperlipidemia, prostate cancer and nicotine dependence. 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 We were asked to the patient in consultation for new onset atrial fibrillation with rapid ventricular response. He is cur rently on a heparin drip. He is maintaining sinus rhythm. Patient initially presented to the hospital secondary generalized weakness, fever and shortness of breath with a cough. Although his cold with 19 test is negative there's still a high suspicion that he does have a virus. Patient did have an episode of distress last night at which time an 18 was called and the patient was transferred to 3 S. telemetry. He continues to complain of significant shortness of breath as well as chest discomfort with coughing and deep inspiration. Continues to feel very weak. Denies any recent complaints of palpitations. Labs this morning showed white blood cell count 13,000, hemoglobin 12.1, normal renal function and an NT proBNP of 1820. TSH was normal. Temperature remains 99.0F axillary, respiratory rate is increased at 26. Blood pressure somewhat elevated 147/98 and he is satting 92% on 15 L high flow nasal cannula at one point he did have an oxygen saturation in the 60s while on room air. This x-ray done this morning showed worsening and progression of left upper lobe pneumonia. Echocardiogram with Doppler study done yesterday showed low normal LV systolic function with an ejection fraction between 50-55%, no evidence of segmental wall motion abnormalities and no significant valvular abnormalities. Objective - Vital Signs Vital signs: Vital Signs Temp 99.0 F 05/19/20 04:13 Pulse 90 05/19/20 04:13 Resp 26 H 05/19/20 04:13 BP 147/98 05/19/20 04:13 Pulse Ox 92 L 05/19/20 04:13 Intake & Output 05/18/20 05/19/20 05/19/20 18:59 06:59 18:59 Intake Total 1115 178.458 120 Output Total 1300 1525 200 Balance -185 -1346.542 -80 Weight 113.398 kg 113.3 kg Intake: IV 1115 Azithromycin 500 mg In 250 Sodium Chloride 0.9% 250 ml @ 250 mls/hr IVPB DAILY [facility] Rx#:[id number] Heparin Sod,Pork in 0.45% 40 NaCl 25,000 unit In 0.45 % NaCl 1 250ml.bag @ 8.8 UNITS/KG/HR 9.979 mls/hr IV .Q24H KAN Rx#: [id number] Lactated Ringers 1,000 ml 125 @ 125 mls/hr IV .Q8H KAN Rx#:[id number] Piperacillin-Tazobactam 3 200 .375 gm In Sodium Chloride 0.9% 100 ml @ 200 mls/hr IVPB ONCE STA Rx#:[id number] Vancomycin 2,000 mg In 500 Sodium Chloride 0.9% 500 ml 500 ml @ 167 mls/hr IVPB ONCE STA Rx#: [id number] Intake, IV Titration 178.458 Amount Heparin Sod,Pork in 0.45% 178.458 NaCl 25,000 unit In 0.45 % NaCl 1 250ml.bag @ 8.8 UNITS/KG/HR 9.979 mls/hr IV .Q24H KAN Rx#: [id number] Oral 0 120 Output: Urine 1300 1525 200 Uretheral (Garcia) 500 Other: Voiding Method Indwelling Catheter Indwelling Catheter - Exam PHYSICAL EXAMINATION: GENERAL: A 70-year-old male patient in mild distress during the time of my examination. Patient is tachypneic and breathing is mildly labored. HEENT: Head is atraumatic, normocephalic. Pupils equal, round. Neck is supple. There is no elevated jugular venous pressure. HEART EXAMINATION: Heart sounds regular, S1 and S2 normal. No murmur or gallop heard. CHEST EXAMINATION: Lungs reveal wheezing and scattered rhonchi throughout. Chest wall tenderness is noted with deep breathing. ABDOMEN: Soft, nontender. Bowel sounds are heard. No organomegaly noted. EXTREMITIES: 2+ peripheral pulses with no evidence of peripheral edema and no c joshua tenderness noted. NEUROLOGIC patient is awake, alert and oriented x3 mild confusion noted. . - Labs CBC & Chem 7: 05/19/20 04:29 05/19/20 04:29 Labs: Abnormal Lab Results - Last 24 Hours (Table) 05/18/20 05/18/20 05/19/20 Range/Units 16:17 18:07 04:29 WBC 13.0 H (3.8-10.6) k/uL RBC 3.81 L (4.30-5.90) m/uL Hgb 12.1 L (13.0-17.5) gm/dL Hct 34.8 L (39.0-53.0) % Neutrophils # 12.4 H (1.3-7.7) k/uL Lymphocytes # 0.3 L (1.0-4.8) k/uL APTT 47.2 H (22.0-30.0) sec ABG pCO2 33 L (35-45) mmHg ABG pO2 63 L (83-108) mmHg ABG O2 Saturation 92.0 L (94-97) % 05/19/20 Range/Units 04:29 WBC (3.8-10.6) k/uL RBC (4.30-5.90) m/uL Hgb (13.0-17.5) gm/dL Hct (39.0-53.0) % Neutrophils # (1.3-7.7) k/uL Lymphocytes # (1.0-4.8) k/uL APTT 55.6 H (22.0-30.0) sec ABG pCO2 (35-45) mmHg ABG pO2 (83-108) mmHg ABG O2 Saturation (94-97) % Microbiology - Last 24 Hours (Table) 05/17/20 18:01 Blood Culture - Preliminary Blood No Growth after 24 hours Assessment and Plan Assessment: #1 right-sided pneumonia #2 high suspicion for COVID-19 infection #3 new onset atrial fibrillation with rapid ventricular response, paroxysmal, currently on IV heparin #4 hyperlipidemia #5 nicotine dependence Plan: From cardiology's perspective medications reviewed and we'll continue the same. We will continue IV heparin and anticipate switching to oral anticoagulation once the patient has stabilized. We'll continue to follow the patient for further recommendations accordingly. The above dictated assessment and findings were discussed with signing physician. The impression and plan of care have been directed as dictated. Alysha Crowder, Nurse Practitioner, acting as scribe for signing physician.
[2020-05-19] MEDS ORDERED: IPRATROPIUM-ALBUTEROL 3 ML NEB INHALATION PRN (13:17)
[2020-05-19 13:24] LABS: African American GFR (CKD) >90 (>60 ml/min/1.73 sqM); Anion Gap 5 mmol/L; Blood Urea Nitrogen 30 mg/dL (9-20); Calcium 7.9 mg/dL (8.4-10.2); Carbon Dioxide 26 mmol/L (22-30); Chloride 99 mmol/L (98-107); Glucose 160 mg/dL (74-99); Non-African American GFR(CKD) 81 (>60 ml/min/1.73 sqM); Potassium 4.2 mmol/L (3.5-5.1); Sodium 130 mmol/L (137-145)
--- NOTE | 2020-05-19 14:50 | CONS ---
CONSULTATION PULMONARY/CRITICAL CARE CONSULTATION: DATE OF SERVICE: May 19, 2020. The patient was admitted on May 17, 2020. REASON FOR CONSULTATION: Pneumonia. HISTORY OF PRESENT ILLNESS: 70-year-old male who presented to the emergency department with complaints of weakness, shortness of breath, and multiple falls. Apparently, the patient was diagnosed as having pneumonia. This morning, we noticed his name on our list and we were consulted only after a couple days of him being here in the hospital. He is a very poor historian. He came in with cough, chest congestion, shortness of breath. He may have had some fever and chills. He is not sure. He denied any chest pain or chest discomfort. There is no nausea, vomiting, diarrhea. No abdominal pain. No genitourinary complaints. Again, he is a very poor historian. It is unclear to me whether any of this history is accurate. Currently, the patient is getting nasal O2, high-flow, 15 L/minute. He does not appear to be significantly short of breath. MEDICATIONS: Reviewed. He is on Lipitor and Peridex. ALLERGIES: Denied. MEDICAL HISTORY: Hyperlipidemia, and prostate cancer. SURGICAL HISTORY: Includes hernia repair and Achilles tendon repair, bilateral ankle surgery, colonoscopy, and prostatectomy. SOCIAL HISTORY: Includes daily tobacco use, occasional alcohol use, and he denies any illicit drug use. FAMILY HISTORY: Unremarkable. Apparently mother and father were healthy. REVIEW OF SYSTEMS: CONSTITUTIONAL weakness, possibly fever and chills. NEUROLOGIC negative. HEENT negative. CARDIOVASCULAR negative. PULMONARY: Shortness of breath, cough. GI negative. negative. RHEUMATOLOGIC negative. IMMUNOLOGIC negative. ENDOCRINOLOGIC negative. DERMATOLOGIC negative. PHYSICAL EXAMINATION: VITAL SIGNS: Current vital signs are reviewed. Temperature is 99 degrees, T-max while he has been here was 103.1, heart rate 90, respiratory rate 26, blood pressure 147/98, mean 114, saturations on 15 L high floor 92%. GENERAL: Appears in no acute distress. There is no conversational dyspnea, use of accessory muscles or audible wheezing. HEENT: Examination is grossly unremarkable. High-flow nasal O2 in place. NECK: Supple. Full range of motion. No adenopathy. Neck veins are flat. CARDIOVASCULAR: Examination reveals regular rhythm and rate. Heart rate 90 beats per minute. S1, S2 normal. No S3, S4, or murmur. LUNGS: Reveal diffuse coarse rhonchi. No wheezes or crackles. Breath sounds are equal. ABDOMEN: Soft. Bowel sounds are heard. EXTREMITIES are intact. No cyanosis, clubbing, or edema. SKIN: Without rash. NEUROLOGIC: Examination is nonfocal. LABS: Reviewed. White count 13, hemoglobin 12.1, hematocrit 34.8, platelet count 305,000. PTT is 55.6. Blood gas done yesterday shows a pO2 of 63, a pCO2 of 33 and a pH of 7.44. These were done on 60% FiO2. Blood gases are consistent with a relative hypoxemia and a mixed acid-base disturbance including a combined respiratory alkalosis and mild metabolic acidosis. The rest of his labs are reviewed. Nothing more from the other than a creatinine of 0.95 and N-terminal proBNP of 1820. Covid testing was negative. Procalcitonin level on the was 1.11, which is quite high. Microbiology is currently negative. The most recent chest x-ray dated May 19 shows left upper lobe pneumonia. There is also cardiomegaly. A chest CT done on May 17 shows no evidence of pulmonary embolism and left upper lobe airspace consolidation consistent with bronchopneumonia. Current medications are reviewed. He is on Tylenol, albuterol inhaler, Lipitor, Zithromax, Decadron, Cardizem, IV heparin, lactated Ringer's, Lopressor, vancomycin, Zosyn and Flomax. ASSESSMENT: 1. Acute hypoxemic respiratory failure secondary to left upper lobe pneumonia, community acquired. 2. Covid testing negative. 3. Probable chronic obstructive pulmonary disease from previous heavy tobacco use. 4. History of prostate cancer, status post prostatectomy. 5. History of hyperlipidemia. 6. Ongoing tobacco use with nicotine addiction. PLAN: Please see my orders. The patient will be placed on DuoNeb, as well as Pulmicort 1 mg and formoterol 20 mcg twice a day. Will DC Decadron in favor of Solu-Medrol. Additional recommendations and suggestions are forthcoming. The patient would likely benefit from a nicotine patch as well. MMCASSANDRAL / ELICEON: [id number] /
[2020-05-19 15:02] LABS: C Reactive Protein 505.5 mg/L (<10.0)
[2020-05-19] MEDS: IPRATROPIUM-ALBUTEROL 3 ML NEB INHALATION SCH ×2 (16:59→20:38)
[2020-05-19] MEDS: methylPREDNISolone SOD SUCCI 40 MG/ML 1 ML VIAL IV SCH (17:44)
[2020-05-19] MEDS: TAMSULOSIN 0.4 MG CAP.ER.24H PO SCH (17:45)
[2020-05-19] MEDS: FORMOTEROL FUMARATE 20 MCG/2 ML NEBU INHALATION SCH (20:38)
[2020-05-19] MEDS: BUDESONIDE 1 MG/2 ML NEBU INHALATION SCH (20:38)
--- NOTE | 2020-05-19 20:56 | P.PN ---
Progress Note - Text Progress Note Date: 05/19/20 Chief Complaint: Short of breath History of presenting complaint: This is 70-year-old patient who was working in his yard all weekend. Thursday evening he started feeling very weak and rundown. To the point that he is unable to get out of his chair. As a result. 2 or 3 falls last couple days. Also short of breath. He had vomited 1. Also spoke perspiring. Patient was somewhat delirious. No diarrhea no constipation no back pain no urinary symptoms. Normally in good health. Long-standing smoker. No stigmata history this morning sometimes being distant with his history. Patient developed A. fib with rapid ventricular rate in the ER without in the 150s. Started IV heparin and Cardizem drip. Admitted with left-sided lobar pneumonia, delirium, sepsis. Also paroxysmal atrial fibrillation with rapid ventricular rate went back into sinus rhythm. On IV Zosyn IV heparin. Today-last night patient went into more of a respirator distress. Oxygen was increased. A-team was called out give some IV Lasix. At lunchtime today. Sitting up short of breath but eating lunch. Answering questions congested chest Review of systems: Was done for constitutional, cardiovascular, GI, pulmonary. relevant finding as above Active Medications Acetaminophen (Acetaminophen Tab 500 Mg Tab) 1,000 mg PO Q6HR PRN PRN Reason: Fever and/ or Pain Last Admin: 05/19/20 20:16 Dose: 1,000 mg Documented by: Albuterol/Ipratropium (Ipratropium-Albuterol 3 Ml Neb) 3 ml INHALATION RT-QID [facility] Last Admin: 05/19/20 20:38 Dose: 3 ml Documented by: Albuterol/Ipratropium (Ipratropium-Albuterol 3 Ml Neb) 3 ml INHALATION RT-Q2H PRN PRN Reason: Shortness Of Breath Or Wheezing Atorvastatin Calcium (Atorvastatin 20 Mg Tab) 20 mg PO DAILY [facility] Last Admin: 05/19/20 10:09 Dose: 20 mg Documented by: Budesonide (Budesonide 1 Mg/2 Ml Nebu) 1 mg INHALATION RT-BID [facility] Last Admin: 05/19/20 20:38 Dose: 1 mg Documented by: Formoterol Fumarate (Formoterol Fumarate 20 Mcg/2 Ml Nebu) 20 mcg INHALATION RT-BID [facility] Last Admin: 05/19/20 20:38 Dose: 20 mcg Documented by: Heparin Sodium (Porcine) (Heparin Sodium,Porcine 5,000 Unit/Ml 1 Ml Vial) 0 unit IV PER PROTOCOL PRN; Protocol PRN Reason: Low PTT Piperacillin Sod/Tazobactam (Sod 3.375 gm/ Sodium Chloride) 100 mls @ 25 mls/hr IVPB Q8HR [facility] Stop: 05/25/20 00:01 Last Admin: 05/19/20 17:44 Dose: 25 mls/hr Documented by: Azithromycin 500 mg/ Sodium (Chloride) 250 mls @ 250 mls/hr IVPB DAILY [facility] Last Admin: 05/19/20 10:09 Dose: 250 mls/hr Documented by: Diltiazem HCl 125 mg/ Sodium (Chloride) 125 mls @ 5 mls/hr IV .Q24H [facility] Last Admin: 05/19/20 10:07 Dose: Not Given Documented by: Heparin Sodium/Sodium Chloride (25,000 unit/ Sodium Chloride) 250 mls @ 9.979 mls/hr IV .Q24H [facility]; Protocol Last Admin: 05/19/20 04:02 Dose: 8.8 units/kg/hr, 9.979 mls/hr Documented by: Vancomycin HCl 1,750 mg/ (Sodium Chloride) 500 mls @ 167 mls/hr IVPB Q12H [facility] Last Admin: 05/19/20 12:15 Dose: 167 mls/hr Documented by: Lactated Ringer's (Lactated Ringers) 1,000 mls @ 125 mls/hr IV .Q8H [facility] Last Admin: 05/19/20 15:46 Dose: Not Given Documented by: Methylprednisolone Sodium Succinate (Methylprednisolone Sod Succi 40 Mg/Ml 1 Ml Vial) 40 mg IV Q6HR [facility] Last Admin: 05/19/20 17:44 Dose: 40 mg Documented by: Metoprolol Tartrate (Metoprolol Tartrate 25 Mg Tab) 25 mg PO BID [facility] Last Admin: 05/19/20 20:16 Dose: 25 mg Documented by: Miscellaneous Information (Pneumonia Protocol Utilized 1 Each Misc) 1 each PO ONCE PRN PRN Reason: Per Protocol Miscellaneous Information (Vancomycin Trough Due 1 Each Misc) 0 each MISCELLANE DIRECTED ONE Stop: 05/19/20 23:01 Tamsulosin HCl (Tamsulosin 0.4 Mg Cap.Er.24h) 0.4 mg PO PC-SUPPER [facility] Last Admin: 05/19/20 17:45 Dose: 0.4 mg Documented by: Physical examination: VITAL SIGNS: 101.8, 89, 20, 130 dose 76, 88% on 13 L GENERAL: Propped up, awake, tired eating some lunch EYES: Pupils equal. Conjunctiva normal. NECK: JVD not raised; masses not palpable. HEART: First and second heart sounds are normal; no edema. LUNGS: Respiratory rate increased, decreased breaths sounds, crackles. ABDOMEN: Soft, nontender, liver spleen not palpable, no masses palpable. PSYCH: Able to answer questions. NEUROLOGICAL: Moving all 4 limbs. INVESTIGATIONS, reviewed in the clinical context: May 19: White count 13 hemoglobin 12.1 increased neutrophils, decreased lymphocytes d-dimer 2.25 sodium 1:30 potassium 4.2 creatinine 0.95 CRP 505. Check stat [id number] upper lobe pneumonia White count 15.4 neutrophils 14.2 lymphocytes decreased to 0.3 D-dimer 4.06 sodium 129 creatinine 1.2 to LDH 732 CRP 423.9 protocol [place] and 1.11 Coronavirus P/Cr-not detected Chest x-ray film personally reviewed by me-large area of consolidation on the left upper lobe Chest CTA-negative for PE, left upper lobe airspace consolidation EKG tracing personally reviewed by me-normal sinus rhythm 2-D echocardiogram-EF 50-55% Assessment: -Large left upper lobar pneumonia, suspect gram-negative organism, severe, POA- worsening. [Negative for Coronavirus P/Cr] -Acute severe hypoxic respiratory failure-currently on 15 L worsening -Severe sepsis secondary to above-slow to respond -Acute delirium, metabolic encephalopathy from above -Hyponatremia likely from decreased fluid intake -Clinical dehydration -Paroxysmal Atrial fibrillation with a rapid ventricular rate.-Currently sinus rhythm Plan: Continue IV Zosyn bronchodilator. IV vancomycin added. IV Solu-Medrol. IV heparin. Follow with pulmonary cardiology. Discussed with the patient.
[2020-05-19] MEDS ORDERED: VANCOMYCIN TROUGH DUE 1 EACH MISC MISCELLANE ONE (23:00)
[2020-05-20] MEDS: LACTATED RINGERS 1,000 ML IV SCH ×3 (00:16→12:52)
[2020-05-20] MEDS: PIPERACILLIN-TAZOBACTAM 3.375 GM in SODIUM CHLORIDE 0.9% 100 ML IVPB SCH ×2 (00:21→08:58)
[2020-05-20] MEDS: methylPREDNISolone SOD SUCCI 40 MG/ML 1 ML VIAL IV SCH ×4 (00:21→17:37)
[2020-05-20] MEDS: VANCOMYCIN 1,750 MG in SODIUM CHLORIDE 0.9% 500 ML 500 ML IVPB SCH ×2 (00:22→02:33)
[2020-05-20] MEDS: HEPARIN SOD,PORK IN 0.45% NACL 25,000 UNIT in 0.45% NACL 1 250ML.BAG IV SCH ×2 (02:32→11:16)
[2020-05-20] MEDS ORDERED: METOPROLOL TARTRATE 25 MG TAB PO STA (02:36)
[2020-05-20] MEDS ORDERED: VANCOMYCIN IV PER PHARMACY 1 EACH MISC MISCELLANE PRN (04:19)
[2020-05-20] MEDS: FORMOTEROL FUMARATE 20 MCG/2 ML NEBU INHALATION SCH ×2 (07:51→19:44)
[2020-05-20] MEDS: IPRATROPIUM-ALBUTEROL 3 ML NEB INHALATION SCH ×4 (07:51→19:44)
[2020-05-20] MEDS: BUDESONIDE 1 MG/2 ML NEBU INHALATION SCH ×2 (07:51→19:44)
[2020-05-20 07:58] LABS: Basophils % (A) 0 %; Eosinophils % (A) 0 %; HCT 34.8 % (39.0-53.0); HGB 12.1 gm/dL (13.0-17.5); Lymphocytes # (A) 0.5 k/uL (1.0-4.8); Lymphocytes % (A) 3 %; MCH 31.7 pg (25.0-35.0); MCHC 34.7 g/dL (31.0-37.0); MCV 91.3 fL (80.0-100.0); Mean Platelet Volume 7.2; Monocytes # (A) 0.5 k/uL (0-1.0); Monocytes % (A) 3 %; Neutrophils % (A) 93 %; Platelet Count 238 k/uL (150-450); RBC 3.82 m/uL (4.30-5.90); RDW 12.5 % (11.5-15.5); WBC 15.1 k/uL (3.8-10.6)
[2020-05-20 08:21] LABS: African American GFR (CKD) >90 (>60 ml/min/1.73 sqM); Non-African American GFR(CKD) 88 (>60 ml/min/1.73 sqM)
[2020-05-20] MEDS: METOPROLOL TARTRATE 50 MG TAB PO SCH ×2 (08:57→20:38)
[2020-05-20] MEDS: AZITHROMYCIN 500 MG in SODIUM CHLORIDE 0.9% 250 ML IVPB SCH (08:58)
[2020-05-20] MEDS: ATORVASTATIN 20 MG TAB PO SCH (08:58)
[2020-05-20 09:13] LABS: Vancomycin,Random 7.4 ug/mL
[2020-05-20] MEDS ORDERED: VANCOMYCIN 1,750 MG in SODIUM CHLORIDE 0.9% 500 ML 500 ML IVPB SCH (10:00)
[2020-05-20] MEDS: DILTIAZEM 125 MG in SODIUM CHLORIDE 0.9% 100 ML IV SCH (11:18)
[2020-05-20] MEDS ORDERED: DILTIAZEM ORAL 30 MG TAB PO STA (12:19)
--- NOTE | 2020-05-20 16:09 | PN ---
PROGRESS NOTE PULMONARY/CRITICAL CARE PROGRESS NOTE: May 20, 2020 This is a 70-year-old gentleman who was seen in consultation yesterday. His diagnosis was acute hypoxemic respiratory failure secondary to left upper lobe pneumonia, community-acquired. His COVID testing was negative. He likely also had some underlying COPD from previous heavy tobacco use. Currently, the patient is feeling a bit better today. PHYSICAL EXAMINATION: VITAL SIGNS: Current vital signs include temperature 98.2, heart rate 86, respiratory rate 20, blood pressure 123/74, mean 90 and 10 L high flow saturations are 94%. The patient is sitting in the chair next his bed. HEENT: Examination is grossly unremarkable. Nasal cannula noted. NECK: Supple, full range of motion. No adenopathy. Neck veins are flat. CARDIOVASCULAR: Examination reveals regular rhythm and rate. Heart rate about 90 beats per minute. S1, S2 normal. No S3, S4, or murmur. Heart sounds are distant. LUNGS: Reveal diffuse coarse rhonchi. No wheezes. No crackles. ABDOMEN: Soft, bowel sounds are heard. EXTREMITIES are intact. No cyanosis, clubbing, or edema. SKIN: Without rash. NEUROLOGIC: Examination is nonfocal. White count 15.1, hemoglobin 12.1, hematocrit 34.8, platelet count 238,000. PTT 65.3. D-dimer 2.25. Sodium 130, potassium 4.2, chloride 99, CO2 26, anion gap is 5. BUN and creatinine were 30 and 0.95. C-reactive protein 505.5. Chest x-ray from May 24 shows a worsening of the patient's left-sided pneumonia. CURRENT MEDICATIONS: Reviewed. The patient is currently on Tylenol, Lipitor, Zithromax, Pulmicort, formoterol, heparin, DuoNeb, LR, Solu-Medrol, metoprolol, Zosyn, Flomax and vancomycin. ASSESSMENT: 1. Acute hypoxemic respiratory failure secondary to left upper lobe pneumonia, community acquired. 2. COVID testing negative. 3. Probable chronic obstructive pulmonary disease secondary to previous heavy tobacco use. 4. History of prostate cancer, status post prostatectomy. 5. History of hyperlipidemia. 6. Ongoing tobacco use with nicotine addiction. PLAN: This is a patient with community-acquired pneumonia. Antibiotics will be switched to Zithromax and Rocephin. Zosyn and vancomycin will be discontinued. No additional recommendations are made. We will continue to follow. Prognosis is guarded. Clinically, the patient feels better. No additional recommendations are made. MMODL / IJN: [id number] /
[2020-05-20] MEDS: DILTIAZEM ORAL 30 MG TAB PO SCH (16:38)
[2020-05-20] MEDS: TAMSULOSIN 0.4 MG CAP.ER.24H PO SCH (16:38)
--- NOTE | 2020-05-20 18:48 | PN ---
PROGRESS NOTE French is a 72-year-old gentleman who was admitted to hospital with Covid pneumonia that we are following for atrial fibrillation. He still remains in atrial fibrillation today with somewhat of a poorly controlled ventricular rate. An echocardiogram shows that LV function is normal. His heart rate is elevated at around 120 beats per minute. I am adding Cardizem 30 mg q.8 hours to the metoprolol 50 b.i.d. that he is already on. EXAM: He is afebrile. Heart rate is 120 beats per minute, blood pressure is 143/74, O2 saturation is 94% on 10 L. LABS: Show a hemoglobin of 12.1, white cell count is 15, platelet count is 238, potassium is 4.2, creatinine is 0.8. ASSESSMENT: 1. Persistent atrial fibrillation with poorly controlled ventricular rate. 2. Covid infection. PLAN: We will start the patient on Cardizem 30 q.8h. MMODL / IJN: [id number] /
--- NOTE | 2020-05-21 00:06 | P.PN ---
Progress Note - Text Progress Note Date: 05/21/20 Chief Complaint: Short of breath History of presenting complaint: This is 70-year-old patient who was working in his yard all weekend. Thursday evening he started feeling very weak and rundown. To the point that he is unable to get out of his chair. As a result. 2 or 3 falls last couple days. Also short of breath. He had vomited 1. Also spoke perspiring. Patient was somewhat delirious. No diarrhea no constipation no back pain no urinary symptoms. Normally in good health. Long-standing smoker. No stigmata history this morning sometimes being distant with his history. Patient developed A. fib with rapid ventricular rate in the ER without in the 150s. Started IV heparin and Cardizem drip. Admitted with left-sided lobar pneumonia, delirium, sepsis. Also paroxysmal atrial fibrillation with rapid ventricular rate went back into sinus rhythm. On IV Zosyn IV heparin. Today-remains on high flow nasal cannula. Congested. Able to expectorate. Short of breath. Eating. Review of systems: Was done for constitutional, cardiovascular, GI, pulmonary. relevant finding as above Active Medications Acetaminophen (Acetaminophen Tab 500 Mg Tab) 1,000 mg PO Q6HR PRN PRN Reason: Fever and/ or Pain Last Admin: 05/19/20 20:16 Dose: 1,000 mg Documented by: Albuterol/Ipratropium (Ipratropium-Albuterol 3 Ml Neb) 3 ml INHALATION RT-QID [facility] Last Admin: 05/20/20 19:44 Dose: 3 ml Documented by: Albuterol/Ipratropium (Ipratropium-Albuterol 3 Ml Neb) 3 ml INHALATION RT-Q2H PRN PRN Reason: Shortness Of Breath Or Wheezing Atorvastatin Calcium (Atorvastatin 20 Mg Tab) 20 mg PO DAILY [facility] Last Admin: 05/20/20 08:58 Dose: 20 mg Documented by: Azithromycin (Azithromycin 500 Mg Tab) 500 mg PO DAILY [facility] Budesonide (Budesonide 1 Mg/2 Ml Nebu) 1 mg INHALATION RT-BID [facility] Last Admin: 05/20/20 19:44 Dose: 1 mg Documented by: Diltiazem HCl (Diltiazem Oral 30 Mg Tab) 30 mg PO Q8HR [facility] Last Admin: 05/20/20 16:38 Dose: 30 mg Documented by: Formoterol Fumarate (Formoterol Fumarate 20 Mcg/2 Ml Nebu) 20 mcg INHALATION RT-BID [facility] Last Admin: 05/20/20 19:44 Dose: 20 mcg Documented by: Heparin Sodium (Porcine) (Heparin Sodium,Porcine 5,000 Unit/Ml 1 Ml Vial) 0 unit IV PER PROTOCOL PRN; Protocol PRN Reason: Low PTT Heparin Sodium/Sodium Chloride (25,000 unit/ Sodium Chloride) 250 mls @ 9.979 mls/hr IV .Q24H [facility]; Protocol Last Admin: 05/20/20 11:16 Dose: 8.8 units/kg/hr, 9.979 mls/hr Documented by: Lactated Ringer's (Lactated Ringers) 1,000 mls @ 125 mls/hr IV .Q8H [facility] Last Admin: 05/20/20 12:52 Dose: Not Given Documented by: Ceftriaxone Sodium 1 gm/ (Sodium Chloride) 50 mls @ 100 mls/hr IVPB Q24HR [facility] Methylprednisolone Sodium Succinate (Methylprednisolone Sod Succi 40 Mg/Ml 1 Ml Vial) 40 mg IV Q6HR [facility] Last Admin: 05/20/20 17:37 Dose: 40 mg Documented by: Metoprolol Tartrate (Metoprolol Tartrate 50 Mg Tab) 50 mg PO BID [facility] Last Admin: 05/20/20 20:38 Dose: 50 mg Documented by: Miscellaneous Information (Pneumonia Protocol Utilized 1 Each Misc) 1 each PO ONCE PRN PRN Reason: Per Protocol Tamsulosin HCl (Tamsulosin 0.4 Mg Cap.Er.24h) 0.4 mg PO PC-SUPPER [facility] Last Admin: 05/20/20 16:38 Dose: 0.4 mg Documented by: Physical examination: VITAL SIGNS: 97.9, 120, 20, 109/68, 96% on 10 L GENERAL: Propped up, awake, eating EYES: Pupils equal. Conjunctiva normal. NECK: JVD not raised; masses not palpable. HEART: First and second heart sounds are normal; no edema. LUNGS: Respiratory rate increased, decreased breaths sounds, crackles. ABDOMEN: Soft, nontender, liver spleen not palpable, no masses palpable. PSYCH: Able to answer questions. NEUROLOGICAL: Moving all 4 limbs. INVESTIGATIONS, reviewed in the clinical context: May 20: White count 15.1 hemoglobin 12.1 May 19: White count 13 hemoglobin 12.1 increased neutrophils, decreased lymp hocytes d-dimer 2.25 sodium 1:30 potassium 4.2 creatinine 0.95 CRP 505. Check stat [id number] upper lobe pneumonia White count 15.4 neutrophils 14.2 lymphocytes decreased to 0.3 D-dimer 4.06 sodium 129 creatinine 1.2 to LDH 732 CRP 423.9 protocol [place] and 1.11 Coronavirus P/Cr-not detected Chest x-ray film personally reviewed by me-large area of consolidation on the left upper lobe Chest CTA-negative for PE, left upper lobe airspace consolidation EKG tracing personally reviewed by me-normal sinus rhythm 2-D echocardiogram-EF 50-55% Assessment: -Large left upper lobar pneumonia, suspect gram-negative organism, severe, POA- worsening. [Negative for Coronavirus P/Cr] -Acute severe hypoxic respiratory failure-currently on 10 L slow to respond -Severe sepsis secondary to above-slow to respond -Acute delirium, metabolic encephalopathy from above-better -Hyponatremia likely from decreased fluid intake -Clinical dehydration -Paroxysmal Atrial fibrillation with a rapid ventricular rate.-Back into sinus rhythm. Uncontrolled. Plan: Dr. Brown changed antibiotics to IV ceftriaxone.(He stopped vancomycin and Zosyn.) bronchodilator. . IV Solu-Medrol. IV heparin. Cardizem 30 mg every 8 and metoprolol tartrate 50 mg twice a day per cardiology. Discussed with patient.
[2020-05-21] MEDS: DILTIAZEM ORAL 30 MG TAB PO SCH ×2 (00:11→09:00)
[2020-05-21] MEDS: LACTATED RINGERS 1,000 ML IV SCH ×4 (00:14→21:03)
[2020-05-21] MEDS: methylPREDNISolone SOD SUCCI 40 MG/ML 1 ML VIAL IV SCH ×5 (00:16→23:26)
--- NOTE | 2020-05-21 07:15 | XR ---
EXAMINATION TYPE: XR chest 2V DATE OF EXAM: 05/21/2020 COMPARISON: Chest x-ray from 2 days ago and older studies. CTA chest 4 days ago. HISTORY: Pneumonia progress study. TECHNIQUE: Frontal and lateral views of the chest are obtained. FINDINGS: Worsening masslike consolidation in the left upper lobe with central air bronchograms. Rig ht lung remains clear. No pleural effusion or pneumothorax seen bilaterally. Cardiac silhouette size stable and upper limits of normal with atherosclerotic change aortic knob redemonstrated. Degenerativ e change left glenohumeral joint partially imaged. IMPRESSION: Persistent left upper lobe pneumonic consolidation, no significant interval change.
[2020-05-21] MEDS ORDERED: VANCOMYCIN TROUGH DUE 1 EACH MISC MISCELLANE ONE (08:00)
--- NOTE | 2020-05-21 08:33 | P.PN ---
Subjective Progress Note Date: 05/21/20 70-year-old male patient with acute hypoxic respiratory failure secondary to the left upper lobe pneumonia, community-acquired. The patient has a negative coronavirusCOVID 19 testing. The patient is known to have COPD. The patient was quite hypoxic on 10 L of oxygen by nasal cannula with a pulse ox of 94%. The patient was treated with a combination of Rocephin and Zithromax. Comorbid conditions include COPD, smoker, prostate cancer with a previous prostatectomy and hyperlipidemia. Patient also developed paroxysmal atrial fibrillation. The patient was in atrial fibrillation in the emergency department. The patient was started on IV heparin. Cardiology the case for rate control. The patient had an echocardiogram that showed normal ejection fraction. Objective - Vital Signs Vital signs: Vital Signs Temp 98.5 F 05/21/20 04:00 Pulse 100 05/21/20 04:00 Resp 18 05/21/20 04:00 BP 118/76 05/21/20 04:00 Pulse Ox 96 05/21/20 04:00 Intake & Output 05/20/20 05/21/20 05/21/20 18:59 06:59 18:59 Intake Total 1820 130 Output Total 1000 750 Balance 820 -620 Weight 119.3 kg Intake: IV 10 Heparin Sod,Pork in 0.45% 10 NaCl 25,000 unit In 0.45 % NaCl 1 250ml.bag @ 8.8 UNITS/KG/HR 9.979 mls/hr IV .Q24H [facility] Rx#: [id number] Intake, IV Titration 800 Amount Azithromycin 500 mg In 250 Sodium Chloride 0.9% 250 ml @ 250 mls/hr IVPB DAILY [facility] Rx#:[id number] Vancomycin 1,750 mg In 500 Sodium Chloride 0.9% 500 ml 500 ml @ 167 mls/hr IVPB Q12HR [facility] Rx#: [id number] cefTRIAXone 1 gm In 50 Sodium Chloride 0.9% 50 ml @ 100 mls/hr IVPB Q24HR [facility] Rx#:[id number] Oral 1020 120 Output: Urine 1000 750 Other: Voiding Method Indwelling Catheter Indwelling Catheter # Voids 0 # Bowel Movements 0 - Exam Gen. appearance the patient is calm comfortable not in distress Head exam was generally normal. There was no scleral icterus or corneal arcus. Mucous membranes were moist. Neck was supple and without jugular venous distension, thyromegaly, or carotid bruits. Carotids were easily palpable bilaterally. There was no adenopathy. Lungs sounds are diminished bilaterally and the patient has coarse rhonchi. No significant wheezes. Cardiac exam revealed the PMI to be normally situated and sized. The rhythm was regular and no extrasystoles were noted during several minutes of auscultation. The first and second heart sounds were normal and physiologic splitting of the second heart sound was noted. There were no murmurs, rubs, clicks, or gallops. Abdominal exam revealed normal bowel sounds. The abdomen was soft, non-tender, and without masses, organomegaly, or appreciable enlargement of the abdominal aorta. Examination of the extremities revealed easily palpable radial, femoral and pedal pulses. There was no cyanosis, clubbing or edema. Examination of the skin revealed no evidence of significant rashes, suspicious appearing nevi or other concerning lesions. - Labs CBC & Chem 7: 05/20/20 07:34 05/20/20 07:34 Labs: Abnormal Lab Results - Last 24 Hours (Table) 05/20/20 Range/Units 07:34 APTT 65.3 H (22.0-30.0) sec Microbiology - Last 24 Hours (Table) 05/17/20 18:01 Blood Culture - Preliminary Blood No Growth after 72 hours Assessment and Plan Plan: 1 acute hypoxic respiratory failure. The left upper lobe pneumonia, likely bacterial community required. The coronavirus COVID 19 testing was negative. The chest x-ray from today still showing persistent consolidation of the left upper lobe. The patient is somewhat between 10 and 11 L of oxygen by nasal cannula with a pulse ox of 99%. 2 COPD 3 history of prostate cancer with previous prostatectomy 4 hyperlipidemia 5 history of smoking 6 leukocytosis secondary to above 7 acute kidney injury, improving and normalized renal function 8 elevated Procalcitonin indicating possibility of a bacterial infection 9 atrial fibrillation/RVR secondary to above currently on IV heparin and cardiology is on the case for rate control. Echocardiogram is within normal limits. 10 acute delirium/metabolic encephalopathy secondary to above, improved 11 hyponatremia, improved Plan Continue DuoNeb nebulized treatments [id number] Continue Rocephin and Zithromax repeat pro-calcitonin level Repeat chest x-ray tomorrow The follow-up chest x-ray from today shows no major interval change and the patient continues to have extensive consolidation of left upper lobe Wean down the FiO2 as possible IV Solu Medrol 40 mg every 6 hour check a Legionella urine antigen
[2020-05-21] MEDS: BUDESONIDE 1 MG/2 ML NEBU INHALATION SCH ×2 (08:50→20:44)
[2020-05-21] MEDS: IPRATROPIUM-ALBUTEROL 3 ML NEB INHALATION SCH ×4 (08:50→20:44)
[2020-05-21] MEDS: FORMOTEROL FUMARATE 20 MCG/2 ML NEBU INHALATION SCH ×2 (08:59→20:44)
[2020-05-21] MEDS: METOPROLOL TARTRATE 50 MG TAB PO SCH ×3 (09:00→21:03)
[2020-05-21] MEDS: ATORVASTATIN 20 MG TAB PO SCH (09:00)
[2020-05-21] MEDS: AZITHROMYCIN 500 MG TAB PO SCH (09:01)
[2020-05-21 09:24] LABS: Basophils % (A) 0 %; Eosinophils % (A) 0 %; HCT 34.6 % (39.0-53.0); HGB 11.8 gm/dL (13.0-17.5); Lymphocytes # (A) 0.5 k/uL (1.0-4.8); Lymphocytes % (A) 4 %; MCH 31.4 pg (25.0-35.0); MCHC 34.1 g/dL (31.0-37.0); Mean Platelet Volume 7.3; Monocytes # (A) 0.6 k/uL (0-1.0); Monocytes % (A) 5 %; Neutrophils # (A) 11.3 k/uL (1.3-7.7); Neutrophils % (A) 90 %; Platelet Count 258 k/uL (150-450); RBC 3.75 m/uL (4.30-5.90); RDW 12.5 % (11.5-15.5); WBC 12.5 k/uL (3.8-10.6)
[2020-05-21 09:56] LABS: African American GFR (CKD) >90 (>60 ml/min/1.73 sqM); Anion Gap 7 mmol/L; Blood Urea Nitrogen 26 mg/dL (9-20); Calcium 8.2 mg/dL (8.4-10.2); Carbon Dioxide 26 mmol/L (22-30); Chloride 99 mmol/L (98-107); Glucose 277 mg/dL (74-99); Non-African American GFR(CKD) 89 (>60 ml/min/1.73 sqM); Potassium 4.3 mmol/L (3.5-5.1); Sodium 132 mmol/L (137-145)
--- NOTE | 2020-05-21 10:48 | P.PN ---
Subjective This is a pleasant 70-year-old male past medical history significant for paroxysmal atrial fibrillation not on halfway anticoagulation, dyslipidemia, prostate cancer and chronic nicotine dependence. He does not follow regularly with insurance territory manager for any reason. He has been going in and out of atrial fibrillation throughout this admission. Currently he is in A. fib with heart rates between 120 930 bpm. He is asymptomatic. He has no symptoms of chest pain, shortness of breath, dizziness or palpitations. Blood pressure 125/68 afebrile maintaining oxygen saturation on high flow nasal cannula. Chest x-ray today reveals persistent left upper lobe pneumonic consolidation with no significant interval change. Laboratory data reviewed, WBC 12.5, hemoglobin 11.8, platelets 258, sodium 132, potassium 4.3, creatinine 0.84, magnesium on admission 2.1. Currently maintained IV heparin, atorvastatin 20 mg daily, diltiazem 30 mg 3 times a day and metoprolol 50 mg twice a day. Echocardiogram obtained on this admission reveals preserved LV systolic function with ejection fraction 50-55%. GENERAL: Well-appearing, well-nourished and in no acute distress. NECK: Supple without JVD or thyromegaly. LUNGS: Expiratory wheeze. Respiration equal and unlabored. No wheezes, rales or rhonchi. HEART: Irregular rate and rhythm without murmurs, rubs or gallops. S1 and S2 heard. EXTREMITIES: Normal range of motion, no edema. No clubbing or cyanosis. Peripheral pulses intact. ASSESSMENT Right-sided pneumonia Paroxysmal atrial fibrillation, new onset. Currently in A. fib with variable ventricular rates. Dyslipidemia Chronic nicotine dependence PLAN Initiate Eliquis 5 mg twice a day, discontinue heparin infusion one hour after first dose of Eliquis given. We will ask the case picker to check the cost of eliquis. Increase Lopressor to 50 mg 3 times a day. Discontinue oral Cardizem. Further recommendations to follow based on clinical course. Nurse Practitioner note has been reviewed, I agree with a documented findings and plan of care. Patient was seen and examined. Objective - Vital Signs Vital signs: Vital Signs Temp 96.8 F L 05/21/20 08:00 Pulse 61 05/21/20 09:12 Resp 18 05/21/20 08:00 BP 125/68 05/21/20 08:00 Pulse Ox 98 05/21/20 08:00 Intake & Output 05/20/20 05/21/20 05/21/20 18:59 06:59 18:59 Intake Total 1820 130 120 Output Total 1000 750 100 Balance 820 -620 20 Weight 119.3 kg Intake: IV 10 Heparin Sod,Pork in 0.45% 10 NaCl 25,000 unit In 0.45 % NaCl 1 250ml.bag @ 8.8 UNITS/KG/HR 9.979 mls/hr IV .Q24H [facility] Rx#: [id number] Intake, IV Titration 800 Amount Azithromycin 500 mg In 250 Sodium Chloride 0.9% 250 ml @ 250 mls/hr IVPB DAILY [facility] Rx#:[id number] Vancomycin 1,750 mg In 500 Sodium Chloride 0.9% 500 ml 500 ml @ 167 mls/hr IVPB Q12HR [facility] Rx#: [id number] cefTRIAXone 1 gm In 50 Sodium Chloride 0.9% 50 ml @ 100 mls/hr IVPB Q24HR [facility] Rx#:[id number] Oral 1020 120 120 Output: Urine 1000 750 100 Uretheral (Garcia) 100 Other: Voiding Method Indwelling Catheter Indwelling Catheter # Voids 0 # Bowel Movements 0 - Labs CBC & Chem 7: 05/21/20 08:50 05/21/20 08:50 Labs: Abnormal Lab Results - Last 24 Hours (Table) 05/21/20 05/21/20 05/21/20 Range/Units 08:50 08:50 08:50 WBC 12.5 H (3.8-10.6) k/uL RBC 3.75 L (4.30-5.90) m/uL Hgb 11.8 L (13.0-17.5) gm/dL Hct 34.6 L (39.0-53.0) % Neutrophils # 11.3 H (1.3-7.7) k/uL Lymphocytes # 0.5 L (1.0-4.8) k/uL APTT 33.2 H (22.0-30.0) sec Sodium 132 L (137-145) mmol/L BUN 26 H (9-20) mg/dL Glucose 277 H (74-99) mg/dL Calcium 8.2 L (8.4-10.2) mg/dL Microbiology - Last 24 Hours (Table) 05/17/20 18:01 Blood Culture - Preliminary Blood No Growth after 72 hours
[2020-05-21] MEDS: HEPARIN SOD,PORK IN 0.45% NACL 25,000 UNIT in 0.45% NACL 1 250ML.BAG IV SCH (11:48)
[2020-05-21] MEDS: APIXABAN 5 MG TAB PO SCH ×2 (12:39→21:03)
[2020-05-21] MEDS: TAMSULOSIN 0.4 MG CAP.ER.24H PO SCH (17:52)
--- NOTE | 2020-05-21 23:18 | P.PN ---
Progress Note - Text Progress Note Date: 05/21/20 Chief Complaint: Short of breath History of presenting complaint: This is 70-year-old patient who was working in his yard all weekend. Thursday evening he started feeling very weak and rundown. To the point that he is unable to get out of his chair. As a result. 2 or 3 falls last couple days. Also short of breath. He had vomited 1. Also spoke perspiring. Patient was somewhat delirious. No diarrhea no constipation no back pain no urinary symptoms. Normally in good health. Long-standing smoker. No stigmata history this morning sometimes being distant with his history. Patient developed A. fib with rapid ventricular rate in the ER without in the 150s. Started IV heparin and Cardizem drip. Admitted with left-sided lobar pneumonia, delirium, sepsis. Also paroxysmal atrial fibrillation with rapid ventricular rate went back into sinus rhythm. On IV Zosyn IV heparin. Today-sitting up in bed, eating. Bouts of coughing. A bit less short of breath. On nasal cannula. No fever. Remains in A. fib with a variable rate. Review of systems: Was done for constitutional, cardiovascular, GI, pulmonary. relevant finding as above Active Medications Acetaminophen (Acetaminophen Tab 500 Mg Tab) 1,000 mg PO Q6HR PRN PRN Reason: Fever and/ or Pain Last Admin: 05/19/20 20:16 Dose: 1,000 mg Documented by: Albuterol/Ipratropium (Ipratropium-Albuterol 3 Ml Neb) 3 ml INHALATION RT-QID [facility] Last Admin: 05/21/20 20:44 Dose: 3 ml Documented by: Albuterol/Ipratropium (Ipratropium-Albuterol 3 Ml Neb) 3 ml INHALATION RT-Q2H PRN PRN Reason: Shortness Of Breath Or Wheezing Apixaban (Apixaban 5 Mg Tab) 5 mg PO BID [facility] Last Admin: 05/21/20 21:03 Dose: 5 mg Documented by: Atorvastatin Calcium (Atorvastatin 20 Mg Tab) 20 mg PO DAILY [facility] Last Admin: 05/21/20 09:00 Dose: 20 mg Documented by: Azithromycin (Azithromycin 500 Mg Tab) 500 mg PO DAILY [facility] Last Admin: 05/21/20 09:01 Dose: 500 mg Documented by: Budesonide (Budesonide 1 Mg/2 Ml Nebu) 1 mg INHALATION RT-BID [facility] Last Admin: 05/21/20 20:44 Dose: 1 mg Documented by: Formoterol Fumarate (Formoterol Fumarate 20 Mcg/2 Ml Nebu) 20 mcg INHALATION RT-BID [facility] Last Admin: 05/21/20 20:44 Dose: 20 mcg Documented by: Lactated Ringer's (Lactated Ringers) 1,000 mls @ 125 mls/hr IV .Q8H [facility] Last Admin: 05/21/20 21:03 Dose: Not Given Documented by: Ceftriaxone Sodium 1 gm/ (Sodium Chloride) 50 mls @ 100 mls/hr IVPB Q24HR [facility] Last Admin: 05/21/20 08:59 Dose: 100 mls/hr Documented by: Methylprednisolone Sodium Succinate (Methylprednisolone Sod Succi 40 Mg/Ml 1 Ml Vial) 40 mg IV Q6HR [facility] Last Admin: 05/21/20 17:52 Dose: 40 mg Documented by: Metoprolol Tartrate (Metoprolol Tartrate 50 Mg Tab) 50 mg PO TID [facility] Last Admin: 05/21/20 21:03 Dose: 50 mg Documented by: Miscellaneous Information (Pneumonia Protocol Utilized 1 Each [facility] [place] [facility]) 1 each PO ONCE PRN PRN Reason: Per Protocol Tamsulosin HCl (Tamsulosin 0.4 Mg Cap.Er.24h) 0.4 mg PO PC-SUPPER [facility] Last Admin: 05/21/20 17:52 Dose: 0.4 mg Documented by: Physical examination: VITAL SIGNS: 96.8, 76, 18, 1 25 x 68,96% on 8 L GENERAL: Propped up, awake, eating EYES: Pupils equal. Conjunctiva normal. NECK: JVD not raised; masses not palpable. HEART: First and second heart sounds are normal; no edema. LUNGS: Respiratory rate increased, decreased breaths sounds, ABDOMEN: Soft, nontender, liver spleen not palpable, no masses palpable. PSYCH: Able to answer questions. NEUROLOGICAL: Moving all 4 limbs. INVESTIGATIONS, reviewed in the clinical context: May 21:white count 12.5 hemoglobin 11.8 potassium 4.3 creatinine 0.84pro- calcitonin 4.04 May 20: White count 15.1 hemoglobin 12.1 May 19: White count 13 hemoglobin 12.1 increased neutrophils, decreased lymphocytes d-dimer 2.25 sodium 1:30 potassium 4.2 creatinine 0.95 CRP 505. Check stat [id number] upper lobe pneumonia White count 15.4 neutrophils 14.2 lymphocytes decreased to 0.3 D-dimer 4.06 sodium 129 creatinine 1.2 to LDH 732 CRP 423.9 protocol Gisella and 1.11 Coronavirus P/Cr-not detected Chest x-ray film personally reviewed by me-large area of consolidation on the left upper lobe Chest CTA-negative for PE, left upper lobe airspace consolidation EKG tracing personally reviewed by me-normal sinus rhythm 2-D echocardiogram-EF 50-55% Assessment: -Large left upper lobar pneumonia, suspect gram-negative organism, severe, POA- slow to respond. [Negative for Coronavirus P/Cr] -Acute severe hypoxic respiratory failure-currently on 10 L slow to respond -Severe sepsis secondary to above-slow to respond -Acute delirium, metabolic encephalopathy from above-better -Hyponatremia likely from decreased fluid intake -Clinical dehydration -Paroxysmal Atrial fibrillation with a rapid ventricular rate.-Back into sinus rhythm. late variable Plan: IV ceftriaxone. bronchodilator. . IV Solu-Medrol. IV heparin. Lopressor 50 mg 3 times a day. Taken off Cardizem.
[2020-05-22] MEDS: methylPREDNISolone SOD SUCCI 40 MG/ML 1 ML VIAL IV SCH ×4 (05:16→23:25)
[2020-05-22] MEDS: LACTATED RINGERS 1,000 ML IV SCH ×3 (05:20→20:23)
[2020-05-22] MEDS ORDERED: DILTIAZEM ORAL 30 MG TAB PO SCH (09:00)
[2020-05-22] MEDS: BUDESONIDE 1 MG/2 ML NEBU INHALATION SCH ×2 (09:02→19:30)
[2020-05-22] MEDS: IPRATROPIUM-ALBUTEROL 3 ML NEB INHALATION SCH ×4 (09:02→19:30)
[2020-05-22] MEDS: FORMOTEROL FUMARATE 20 MCG/2 ML NEBU INHALATION SCH ×2 (09:02→19:30)
--- NOTE | 2020-05-22 09:18 | P.PN ---
Subjective Progress Note Date: 05/22/20 70-year-old male patient with acute hypoxic respiratory failure secondary to the left upper lobe pneumonia, community-acquired. The patient has a negative coronavirusCOVID 19 testing. The patient is known to have COPD. The patient was quite hypoxic on 10 L of oxygen by nasal cannula with a pulse ox of 94%. The patient was treated with a combination of Rocephin and Zithromax. Comorbid conditions include COPD, smoker, prostate cancer with a previous prostatectomy and hyperlipidemia. Patient also developed paroxysmal atrial fibrillation. The patient was in atrial fibrillation in the emergency department. The patient was started on IV heparin. Cardiology the case for rate control. The patient had an echocardiogram that showed normal ejection fraction. On today's evaluation of 05/22/2020, the patient is feeling better. His shortness of breath. He is on 83 L of oxygen by nasal cannula. His pro- calcitonin level is down to 4.04. Repeat chest x-ray was done today and is significant consolidation of the left upper lobe with some improvement compared to yesterday. The patient has no hemoptysis. No pleurisy.furthermore, his FiO2 is down to 4 L of oxygen by nasal cannula. Blood cultures negative. The patient has been in atrial fibrillation. Objective - Vital Signs Vital signs: Vital Signs Temp 98 F 05/21/20 20:00 Pulse 69 05/22/20 09:00 Resp 20 05/22/20 04:00 BP 117/70 05/22/20 04:00 Pulse Ox 98 05/22/20 04:00 Intake & Output 05/21/20 05/22/20 05/22/20 18:59 06:59 18:59 Intake Total 360 625 480 Output Total 1100 250 Balance -740 375 480 Weight 119.5 kg Intake: IV 625 Lactated Ringers 1,000 ml 625 @ 125 mls/hr IV .Q8H [facility] Rx#:[id number] Oral 360 480 Output: Urine 1100 250 Uretheral (Garcia) 700 Other: Voiding Method Indwelling Catheter Indwelling Catheter - Exam Gen. appearance the patient is calm comfortable not in distress Head exam was generally normal. There was no scleral icterus or corneal arcus. Mucous membranes were moist. Neck was supple and without jugular venous distension, thyromegaly, or carotid bruits. Carotids were easily palpable bilaterally. There was no adenopathy. Lungs sounds are diminished bilaterally and the patient has coarse rhonchi. No significant wheezes. Cardiac exam revealed the PMI to be normally situated and sized. The rhythm was regular and no extrasystoles were noted during several minutes of auscultation. The first and second heart sounds were normal and physiologic splitting of the second heart sound was noted. There were no murmurs, rubs, clicks, or gallops. Abdominal exam revealed normal bowel sounds. The abdomen was soft, non-tender, and without masses, organomegaly, or appreciable enlargement of the abdominal aorta. Examination of the extremities revealed easily palpable radial, femoral and pedal pulses. There was no cyanosis, clubbing or edema. Examination of the skin revealed no evidence of significant rashes, suspicious appearing nevi or other concerning lesions. - Labs CBC & Chem 7: 05/21/20 08:50 05/21/20 08:50 Labs: Abnormal Lab Results - Last 24 Hours (Table) 05/21/20 05/21/20 05/21/20 Range/Units 08:50 08:50 08:50 WBC 12.5 H (3.8-10.6) k/uL RBC 3.75 L (4.30-5.90) m/uL Hgb 11.8 L (13.0-17.5) gm/dL Hct 34.6 L (39.0-53.0) % Neutrophils # 11.3 H (1.3-7.7) k/uL Lymphocytes # 0.5 L (1.0-4.8) k/uL APTT 33.2 H (22.0-30.0) sec Sodium 132 L (137-145) mmol/L BUN 26 H (9-20) mg/dL Glucose 277 H (74-99) mg/dL Calcium 8.2 L (8.4-10.2) mg/dL Procalcitonin (0.02-0.09) ng/mL 05/21/20 Range/Units 08:50 WBC (3.8-10.6) k/uL RBC (4.30-5.90) m/uL Hgb (13.0-17.5) gm/dL Hct (39.0-53.0) % Neutrophils # (1.3-7.7) k/uL Lymphocytes # (1.0-4.8) k/uL APTT (22.0-30.0) sec Sodium (137-145) mmol/L BUN (9-20) mg/dL Glucose (74-99) mg/dL Calcium (8.4-10.2) mg/dL Procalcitonin 4.04 H (0.02-0.09) ng/mL Microbiology - Last 24 Hours (Table) 05/17/20 18:01 Blood Culture - Preliminary Blood No Growth after 96 hours Assessment and Plan Plan: 1 acute hypoxic respiratory failure. The left upper lobe pneumonia, likely bacterial community required. The coronavirus COVID 19 testing was negative. The chest x-ray from today still showing persistent consolidation of the left upper lobe. The patient is improving and currently is down to 4 L. A chest x- ray shows some improvement in the left upper lobe consolidation. For A LEVEL IS ALSO IMPROVING. 2 COPD 3 history of prostate cancer with previous prostatectomy 4 hyperlipidemia 5 history of smoking 6 leukocytosis secondary to above 7 acute kidney injury, improving and normalized renal function 8 elevated Procalcitonin indicating possibility of a bacterial infection 9 atrial fibrillation/RVR secondary to above currently on IV heparin and cardiology is on the case for rate control. Echocardiogram is within normal limits. 10 acute delirium/metabolic encephalopathy secondary to above, improved 11 hyponatremia, improved Plan clinically improving. oxygenation is improving. Pro-calcitoninImproving Continue DuoNeb nebulized treatments [id number] Continue Rocephin and Zithromax Repeat chest x-ray tomorrow Wean down the FiO2 as possible IV Solu Medrol 40 mg every 6 hour awaiting Legionella urine antigen
[2020-05-22] MEDS: ATORVASTATIN 20 MG TAB PO SCH (09:36)
[2020-05-22] MEDS: APIXABAN 5 MG TAB PO SCH ×2 (09:36→20:21)
[2020-05-22] MEDS: METOPROLOL TARTRATE 50 MG TAB PO SCH ×3 (09:36→20:21)
[2020-05-22] MEDS: AZITHROMYCIN 500 MG TAB PO SCH (09:36)
--- NOTE | 2020-05-22 11:19 | P.PN ---
Subjective This is a pleasant 70-year-old male past medical history significant for paroxysmal atrial fibrillation not on detention anticoagulation, dyslipidemia, prostate cancer and chronic nicotine dependence. He does not follow regularly with resident care supervisor for any reason. He is seen and examined sitting up in bed in no acute distress. He states his cough is still there but improving. He has no symptoms of chest pain, palpitations or worsening shortness of breath. Blood pressure 128/63 heart rate 128 afebrile maintaining oxygen saturation on nasal cannula. Laboratory data reviewed, WBC 12.5, hemoglobin 11.8, platelets 258, sodium 132, potassium 4.3, creatinine 0.84. Currently maintained on Eliquis 5 mg twice a day, atorvastatin 20 mg daily and Lopressor 50 mg 3 times a day. GENERAL: Well-appearing, well-nourished and in no acute distress. NECK: Supple without JVD or thyromegaly. LUNGS: Scattered rhonchi, no wheezes or rales. Respiration equal and unlabored. HEART: Irregular rate and rhythm without murmurs, rubs or gallops. S1 and S2 heard. EXTREMITIES: Normal range of motion, no edema. No clubbing or cyanosis. Peripheral pulses intact. ASSESSMENT Right-sided pneumonia Paroxysmal atrial fibrillation, new onset. Currently in A. fib with variable ventricular rates. Dyslipidemia Chronic nicotine dependence PLAN Initiate verapamil 40 mg 3 times a day for rate control. Continue Eliquis and Lopressor as previously ordered. Eliquis is $45 per month. The patient is agreeable to take this medication as an outpatient. Nurse Practitioner note has been reviewed, I agree with a documented findings and plan of care. Patient was seen and examined. Objective - Vital Signs Vital signs: Vital Signs Temp 96.3 F L 05/22/20 08:00 Pulse 64 05/22/20 09:27 Resp 18 05/22/20 08:00 BP 128/63 05/22/20 08:00 Pulse Ox 96 05/22/20 08:00 Intake & Output 05/21/20 05/22/20 05/22/20 18:59 06:59 18:59 Intake Total 360 625 480 Output Total 1100 250 Balance -740 375 480 Weight 119.5 kg Intake: IV 625 Lactated Ringers 1,000 ml 625 @ 125 mls/hr IV .Q8H [facility] Rx#:[id number] Oral 360 480 Output: Urine 1100 250 Uretheral (Garcia) 700 Other: Voiding Method Indwelling Catheter Indwelling Catheter - Labs CBC & Chem 7: 05/21/20 08:50 05/21/20 08:50 Labs: Abnormal Lab Results - Last 24 Hours (Table) 05/21/20 Range/Units 08:50 Procalcitonin 4.04 H (0.02-0.09) ng/mL Microbiology - Last 24 Hours (Table) 05/17/20 18:01 Blood Culture - Preliminary Blood No Growth after 96 hours
--- NOTE | 2020-05-22 12:26 | XR ---
EXAMINATION TYPE: XR chest 1V DATE OF EXAM: 05/22/2020 COMPARISON: 05/21/2020 INDICATION: Pneumonia TECHNIQUE: Single frontal view of the chest is obtained. FINDINGS: The heart size is normal. The pulmonary vasculature is normal. Consolidation with some air bronchograms are noted periphery of the left upper lobe. Findings appear more consolidated than prior. IMPRESSION: 1. Mild worsening of a left upper lobe pneumonia
[2020-05-22] MEDS: VERAPAMIL 40 MG TAB PO SCH ×2 (18:07→23:25)
[2020-05-22] MEDS: TAMSULOSIN 0.4 MG CAP.ER.24H PO SCH (18:08)
[2020-05-23] MEDS: methylPREDNISolone SOD SUCCI 40 MG/ML 1 ML VIAL IV SCH (06:26)
[2020-05-23] MEDS: LACTATED RINGERS 1,000 ML IV SCH (06:27)
[2020-05-23] MEDS: IPRATROPIUM-ALBUTEROL 3 ML NEB INHALATION SCH ×4 (07:22→20:52)
[2020-05-23] MEDS: BUDESONIDE 1 MG/2 ML NEBU INHALATION SCH ×2 (07:22→20:52)
[2020-05-23] MEDS: FORMOTEROL FUMARATE 20 MCG/2 ML NEBU INHALATION SCH ×2 (07:22→20:52)
--- NOTE | 2020-05-23 08:59 | P.PN ---
Subjective Progress Note Date: 05/23/20 70-year-old male patient with acute hypoxic respiratory failure secondary to the left upper lobe pneumonia, community-acquired. The patient has a negative coronavirusCOVID 19 testing. The patient is known to have COPD. The patient was quite hypoxic on 10 L of oxygen by nasal cannula with a pulse ox of 94%. The patient was treated with a combination of Rocephin and Zithromax. Comorbid conditions include COPD, smoker, prostate cancer with a previous prostatectomy and hyperlipidemia. Patient also developed paroxysmal atrial fibrillation. The patient was in atrial fibrillation in the emergency department. The patient was started on IV heparin. Cardiology the case for rate control. The patient had an echocardiogram that showed normal ejection fraction. On today's evaluation of 05/22/2020, the patient is feeling better. His shortness of breath. He is on 83 L of oxygen by nasal cannula. His pro- calcitonin level is down to 4.04. Repeat chest x-ray was done today and is significant consolidation of the left upper lobe with some improvement compared to yesterday. The patient has no hemoptysis. No pleurisy.furthermore, his FiO2 is down to 4 L of oxygen by nasal cannula. Blood cultures negative. The patient has been in atrial fibrillation. on today's evaluation of 05/23/2020, the patient is even feeling better. He is currently on room air oxygen. He is originally urine antigen came back positive and this is most likely a Legionella pneumonia. The patient's antibiotics will be modified accordingly. He is feeling well. No nausea. No vomiting. No diarrhea. No pleurisy. No hemoptysis. Objective - Vital Signs Vital signs: Vital Signs Temp 97.7 F 05/23/20 00:00 Pulse 78 05/23/20 07:40 Resp 16 05/23/20 07:40 BP 138/56 05/23/20 04:00 Pulse Ox 94 L 05/23/20 04:00 Intake & Output 05/22/20 05/23/20 05/23/20 18:59 06:59 18:59 Intake Total 1200 Output Total 900 800 Balance 300 -800 Weight 121 kg Intake: Oral 1200 Output: Urine 900 800 Other: Voiding Method Indwelling Catheter Indwelling Catheter - Exam Gen. appearance the patient is calm comfortable not in distress Head exam was generally normal. There was no scleral icterus or corneal arcus. Mucous membranes were moist. Neck was supple and without jugular venous distension, thyromegaly, or carotid bruits. Carotids were easily palpable bilaterally. There was no adenopathy. Lungs sounds are diminished bilaterally and the patient has coarse rhonchi. No significant wheezes. Cardiac exam revealed the PMI to be normally situated and sized. The rhythm was regular and no extrasystoles were noted during several minutes of auscultation. The first and second heart sounds were normal and physiologic splitting of the second heart sound was noted. There were no murmurs, rubs, clicks, or gallops. Abdominal exam revealed normal bowel sounds. The abdomen was soft, non-tender, and without masses, organomegaly, or appreciable enlargement of the abdominal aorta. Examination of the extremities revealed easily palpable radial, femoral and pedal pulses. There was no cyanosis, clubbing or edema. Examination of the skin revealed no evidence of significant rashes, suspicious appearing nevi or other concerning lesions. - Labs CBC & Chem 7: 05/21/20 08:50 05/21/20 08:50 Labs: Abnormal Lab Results - Last 24 Hours (Table) 05/21/20 Range/Units 23:24 Urine Legionella Ag Positive A (Negative) Microbiology - Last 24 Hours (Table) 05/17/20 18:01 Blood Culture - Preliminary Blood No Growth after 120 hours Assessment and Plan Plan: 1 acute hypoxic respiratory failure. The left upper lobe pneumonia, likely bacterial community required. The coronavirus COVID 19 testing was negative. then Legionella urine antigen was positive and this is most likely a Legionella pneumonia 2 COPD 3 history of prostate cancer with previous prostatectomy 4 hyperlipidemia 5 history of smoking 6 leukocytosis secondary to above 7 acute kidney injury, improving and normalized renal function 8 elevated Procalcitonin indicating possibility of a bacterial infection 9 atrial fibrillation/RVR secondary to above currently on IV heparin and cardiology is on the case for rate control. Echocardiogram is within normal limits. 10 acute delirium/metabolic encephalopathy secondary to above, improved 11 hyponatremia, improved Plan clinically improving. the patient is currently on room air oxygen with a pulse of 79% Change antibiotics to Levaquin 750 mg by mouth daily Continue DuoNeb nebulized treatments [id number] prednisone burst taper increased level of activity Possible home either today or tomorrow with outpatient antibiotic treatment
[2020-05-23] MEDS: predniSONE 20 MG TAB PO SCH (10:05)
[2020-05-23] MEDS: APIXABAN 5 MG TAB PO SCH ×2 (10:05→21:10)
[2020-05-23] MEDS: LEVOFLOXACIN 750 MG TAB PO SCH (10:05)
[2020-05-23] MEDS: ATORVASTATIN 20 MG TAB PO SCH (10:05)
[2020-05-23] MEDS: VERAPAMIL 40 MG TAB PO SCH ×2 (10:05→21:10)
[2020-05-23] MEDS: METOPROLOL TARTRATE 50 MG TAB PO SCH ×3 (10:05→21:42)
--- NOTE | 2020-05-23 11:24 | P.PN ---
Progress Note - Text Progress Note Date: 05/22/20 Chief Complaint: Short of breath History of presenting complaint: This is 70-year-old patient who was working in his yard all weekend. Thursday evening he started feeling very weak and rundown. To the point that he is unable to get out of his chair. As a result. 2 or 3 falls last couple days. Also short of breath. He had vomited 1. Also spoke perspiring. Patient was somewhat delirious. No diarrhea no constipation no back pain no urinary symptoms. Normally in good health. Long-standing smoker. No stigmata history this morning sometimes being distant with his history. Patient developed A. fib with rapid ventricular rate in the ER without in the 150s. Started IV heparin and Cardizem drip. Admitted with left-sided lobar pneumonia, delirium, sepsis. Also paroxysmal atrial fibrillation with rapid ventricular rate went back into sinus rhythm back into A. fib again.. On IV Zosyn IV heparin. Today-breathing continues to improve. Oxygen requirement coming down. Eating better. Less cough. Feeling better. Review of systems: Was done for constitutional, cardiovascular, GI, pulmonary. relevant finding as above Current medications reviewed in today's electronic records Physical examination: VITAL SIGNS: 96.3, 120, 18, 128 x 63, 96% on 4 L GENERAL: Sitting up awake, on in distress EYES: Pupils equal. Conjunctiva normal. NECK: JVD not raised; masses not palpable. HEART: First and second heart sounds are normal; no edema. LUNGS: Respiratory rate increased, decreased breaths sounds, ABDOMEN: Soft, nontender, liver spleen not palpable, no masses palpable. PSYCH: Able to answer questions. NEUROLOGICAL: Moving all 4 limbs. INVESTIGATIONS, reviewed in the clinical context: May 21:white count 12.5 hemoglobin 11.8 potassium 4.3 creatinine 0.84pro- calcitonin 4.04 May 20: White count 15.1 hemoglobin 12.1 May 19: White count 13 hemoglobin 12.1 increased neutrophils, decreased lymphocytes d-dimer 2.25 sodium 1:30 potassium 4.2 creatinine 0.95 CRP 505. Check stat [id number] upper lobe pneumonia White count 15.4 neutrophils 14.2 lymphocytes decreased to 0.3 D-dimer 4.06 sodium 129 creatinine 1.2 to LDH 732 CRP 423.9 protocol [place] and 1.11 Coronavirus P/Cr-not detected Chest x-ray film personally reviewed by me-large area of consolidation on the left upper lobe Chest CTA-negative for PE, left upper lobe airspace consolidation EKG tracing personally reviewed by me-normal sinus rhythm 2-D echocardiogram-EF 50-55% Urine Legionella antigen-positive Assessment: -Large left upper lobar pneumonia, Legionella severe, POA- [Negative for Coronavirus P/Cr] -Acute severe hypoxic respiratory failure-currently on 4 L improving -Severe sepsis secondary to better -Acute delirium, metabolic encephalopathy from improved -Hyponatremia likely from decreased fluid intake -Clinical dehydration -Paroxysmal Atrial fibrillation with a rapid ventricular rate.-Back into sinus rhythm. In and out of atrial fibrillation. Plan: IV ceftriaxone. bronchodilator. . IV Solu-Medrol. Eliquis. Lopressor 50 mg 3 times a day. . Changed to by mouth prednisone. Cutback IV fluids. Will change antibiotic. Started on verapamil.
[2020-05-23 12:20] LABS: HCT 38.1 % (39.0-53.0); HGB 12.5 gm/dL (13.0-17.5); MCH 31.1 pg (25.0-35.0); MCHC 32.8 g/dL (31.0-37.0); MCV 94.5 fL (80.0-100.0); Mean Platelet Volume 7.7; Platelet Count 435 k/uL (150-450); RBC 4.03 m/uL (4.30-5.90); RDW 13.1 % (11.5-15.5); WBC 16.5 k/uL (3.8-10.6)
[2020-05-23 12:27] LABS: African American GFR (CKD) >90 (>60 ml/min/1.73 sqM); Anion Gap 7 mmol/L; Blood Urea Nitrogen 31 mg/dL (9-20); Calcium 8.2 mg/dL (8.4-10.2); Carbon Dioxide 25 mmol/L (22-30); Chloride 99 mmol/L (98-107); Glucose 307 mg/dL (74-99); Non-African American GFR(CKD) >90 (>60 ml/min/1.73 sqM); Sodium 131 mmol/L (137-145)
--- NOTE | 2020-05-23 13:34 | P.PN ---
Subjective This is a pleasant 70-year-old male past medical history significant for paroxysmal atrial fibrillation not on mcc anticoagulation, dyslipidemia, prostate cancer and chronic nicotine dependence. He does not follow regularly with plate keeper for any reason. He is seen and examined sitting up in bed in no acute distress. He states his cough is still there but improving. He has no symptoms of chest pain, palpitations or worsening shortness of breath. Blood pressure 128/63 heart rate 128 afebrile maintaining oxygen saturation on nasal cannula. Laboratory data reviewed, WBC 12.5, hemoglobin 11.8, platelets 258, sodium 132, potassium 4.3, creatinine 0.84. Currently maintained on Eliquis 5 mg twice a day, atorvastatin 20 mg daily and Lopressor 50 mg 3 times a day. 05/23/2020 Patient is seen and examined sitting up in bed in no acute distress. He denies symptoms of chest pain, dizziness or palpitations. His breathing is stable. He continues to cough. Legionella came back positive, pulmonology is adjusting his antibiotics. He continues to be in a-fib on the monitor with controlled ventricular rates. Blood pressure 124/76 heart rate 78 afebrile maintaining oxygen saturation on room air. Laboratory data reviewed, WBC 16.5, hemoglobin 12.5, platelets 435, sodium 131, potassium 5, creatinine 0.73. Currently m aintained on Eliquis 5 mg twice a day, atorvastatin 20 mg daily, metoprolol 50 mg 3 times a day and verapamil 40 mg 3 times a day. GENERAL: Well-appearing, well-nourished and in no acute distress. NECK: Supple without JVD or thyromegaly. LUNGS: Scattered rhonchi, no wheezes or rales. Respiration equal and unlabored. HEART: Irregular rate and rhythm without murmurs, rubs or gallops. S1 and S2 heard. EXTREMITIES: Normal range of motion, no edema. No clubbing or cyanosis. Peripheral pulses intact. ASSESSMENT Right-sided pneumonia, legionella Paroxysmal atrial fibrillation, new onset. Currently in A. fib with variable ventricular rates. Dyslipidemia Chronic nicotine dependence PLAN Continue beta blockers and decrease verapamil to twice a day. Continue Eliquis for thromboembolic protection. Ongoing medical management and treatment of Legionella pneumonia. We will follow along as needed, please feel free to call with further questions or concerns. Follow-up in the office with Dr. Toro upon discharge. Nurse Practitioner note has been reviewed, I agree with a documented findings and plan of care. Patient was seen and examined. Objective - Vital Signs Vital signs: Vital Signs Temp 97.6 F 05/23/20 07:30 Pulse 92 05/23/20 11:37 Resp 18 05/23/20 11:37 BP 124/76 05/23/20 07:30 Pulse Ox 93 L 05/23/20 07:30 Intake & Output 05/22/20 05/23/20 05/23/20 18:59 06:59 18:59 Intake Total 1200 240 Output Total 900 800 Balance 300 -800 240 Weight 121 kg Intake: Oral 1200 240 Output: Urine 900 800 Other: Voiding Method Indwelling Catheter Indwelling Catheter Indwelling Catheter - Labs CBC & Chem 7: 05/23/20 11:38 05/23/20 11:38 Labs: Abnormal Lab Results - Last 24 Hours (Table) 05/23/20 05/23/20 Range/Units 11:38 11:38 WBC 16.5 H (3.8-10.6) k/uL RBC 4.03 L (4.30-5.90) m/uL Hgb 12.5 L (13.0-17.5) gm/dL Hct 38.1 L (39.0-53.0) % Sodium 131 L (137-145) mmol/L BUN 31 H (9-20) mg/dL Glucose 307 H (74-99) mg/dL Calcium 8.2 L (8.4-10.2) mg/dL Microbiology - Last 24 Hours (Table) 05/17/20 18:01 Blood Culture - Preliminary Blood No Growth after 120 hours
[2020-05-23 13:40] VITALS: BMI 32.4
[2020-05-23] MEDS: TAMSULOSIN 0.4 MG CAP.ER.24H PO SCH (16:33)
--- NOTE | 2020-05-23 22:32 | P.PN ---
Progress Note - Text Progress Note Date: 05/23/20 Chief Complaint: Short of breath History of presenting complaint: This is 70-year-old patient who was working in his yard all weekend. Thursday evening he started feeling very weak and rundown. To the point that he is unable to get out of his chair. As a result. 2 or 3 falls last couple days. Also short of breath. He had vomited 1. Also spoke perspiring. Patient was somewhat delirious. No diarrhea no constipation no back pain no urinary symptoms. Normally in good health. Long-standing smoker. No stigmata history this morning sometimes being distant with his history. Patient developed A. fib with rapid ventricular rate in the ER without in the 150s. Started IV heparin and Cardizem drip. Admitted with left-sided lobar pneumonia, delirium, sepsis. Also paroxysmal atrial fibrillation with rapid ventricular rate went back into sinus rhythm back into A. fib again.. On IV Zosyn IV heparin. Tested positive for Legionella. Today-continues to feel better. Oxygen Dr. 2 L nasal cannula this morning. Antibiotic changed to Levaquin Review of systems: Was done for constitutional, cardiovascular, GI, pulmonary. relevant finding as above Active Medications Acetaminophen (Acetaminophen Tab 500 Mg Tab) 1,000 mg PO Q6HR PRN PRN Reason: Fever and/ or Pain Last Admin: 05/19/20 20:16 Dose: 1,000 mg Documented by: Albuterol/Ipratropium (Ipratropium-Albuterol 3 Ml Neb) 3 ml INHALATION RT-QID [facility] Last Admin: 05/23/20 20:52 Dose: 3 ml Documented by: Albuterol/Ipratropium (Ipratropium-Albuterol 3 Ml Neb) 3 ml INHALATION RT-Q2H PRN PRN Reason: Shortness Of Breath Or Wheezing Apixaban (Apixaban 5 Mg Tab) 5 mg PO BID [facility] Last Admin: 05/23/20 21:10 Dose: 5 mg Documented by: Atorvastatin Calcium (Atorvastatin 20 Mg Tab) 20 mg PO DAILY [facility] Last Admin: 05/23/20 10:05 Dose: 20 mg Documented by: Budesonide (Budesonide 1 Mg/2 Ml Nebu) 1 mg INHALATION RT-BID [facility] Last Admin: 05/23/20 20:52 Dose: 1 mg Documented by: Formoterol Fumarate (Formoterol Fumarate 20 Mcg/2 Ml Nebu) 20 mcg INHALATION RT-BID [facility] Last Admin: 05/23/20 20:52 Dose: 20 mcg Documented by: Levofloxacin (Levofloxacin 750 Mg Tab) 750 mg PO DAILY [facility] Last Admin: 05/23/20 10:05 Dose: 750 mg Documented by: Metoprolol Tartrate (Metoprolol Tartrate 50 Mg Tab) 50 mg PO TID [facility] Last Admin: 05/23/20 21:42 Dose: 50 mg Documented by: Miscellaneous Information (Pneumonia Protocol Utilized 1 Each [facility] [place]) 1 each PO ONCE PRN PRN Reason: Per Protocol Prednisone (Prednisone 20 Mg Tab) 40 mg PO DAILY [facility] Last Admin: 05/23/20 10:05 Dose: 40 mg Documented by: Tamsulosin HCl (Tamsulosin 0.4 Mg Cap.Er.24h) 0.4 mg PO PC-SUPPER [facility] Last Admin: 05/23/20 16:33 Dose: 0.4 mg Documented by: Verapamil HCl (Verapamil 40 Mg Tab) 40 mg PO BID [facility] Last Admin: 05/23/20 21:10 Dose: 40 mg Documented by: Physical examination: VITAL SIGNS: 97.6, 75, 18, 120/76, 93% on room air GENERAL: Sitting up awake, more comfortable EYES: Pupils equal. Conjunctiva normal. NECK: JVD not raised; masses not palpable. HEART: First and second heart sounds are normal; no edema. LUNGS: Respiratory rate increased, decreased breaths sounds, ABDOMEN: Soft, nontender, liver spleen not palpable, no masses palpable. PSYCH: Able to answer questions. NEUROLOGICAL: Moving all 4 limbs. INVESTIGATIONS, reviewed in the clinical context: May 21:white count 12.5 hemoglobin 11.8 potassium 4.3 creatinine 0.84pro- calcitonin 4.04 May 20: White count 15.1 hemoglobin 12.1 May 19: White count 13 hemoglobin 12.1 increased neutrophils, decreased lymphocytes d-dimer 2.25 sodium 1:30 potassium 4.2 creatinine 0.95 CRP 505. C heck stat [id number] upper lobe pneumonia White count 15.4 neutrophils 14.2 lymphocytes decreased to 0.3 D-dimer 4.06 sodium 129 creatinine 1.2 to LDH 732 CRP 423.9 protocol [place] and 1.11 Coronavirus P/Cr-not detected Chest x-ray film personally reviewed by me-large area of consolidation on the left upper lobe Chest CTA-negative for PE, left upper lobe airspace consolidation EKG tracing personally reviewed by me-normal sinus rhythm 2-D echocardiogram-EF 50-55% Urine Legionella antigen-positive Assessment: -Large left upper lobar pneumonia, Legionella severe, POA- [Negative for Harris virus P/Cr]-improving -Acute severe hypoxic respiratory failure-currently on 2 L improving -Severe sepsis secondary to pneumonia- better -Acute delirium, metabolic encephalopathy from above- improved -Hyponatremia likely from decreased fluid intake -Clinical dehydration -Paroxysmal Atrial fibrillation with a rapid ventricular rate.-Back into sinus rhythm. In and out of atrial fibrillation. Plan: Patient on eliquis, Levaquin, Lopressor, dose of verapamil cutback today. Encouraged to ambulate in the room. If remains stable. Home tomorrow.
[2020-05-24] MEDS: FORMOTEROL FUMARATE 20 MCG/2 ML NEBU INHALATION SCH ×2 (09:00→09:19)
[2020-05-24] MEDS: IPRATROPIUM-ALBUTEROL 3 ML NEB INHALATION SCH (09:00)
[2020-05-24] MEDS: BUDESONIDE 1 MG/2 ML NEBU INHALATION SCH (09:00)
[2020-05-24] MEDS: APIXABAN 5 MG TAB PO SCH ×2 (09:12→21:35)
[2020-05-24] MEDS: LEVOFLOXACIN 750 MG TAB PO SCH (09:12)
[2020-05-24] MEDS: METOPROLOL TARTRATE 50 MG TAB PO SCH (09:12)
[2020-05-24] MEDS: predniSONE 20 MG TAB PO SCH (09:13)
[2020-05-24] MEDS: VERAPAMIL 40 MG TAB PO SCH ×4 (09:13→21:35)
[2020-05-24] MEDS: ATORVASTATIN 20 MG TAB PO SCH (09:13)
--- NOTE | 2020-05-24 09:31 | P.PN ---
Subjective Progress Note Date: 05/24/20 70-year-old male patient with acute hypoxic respiratory failure secondary to the left upper lobe pneumonia, community-acquired. The patient has a negative coronavirusCOVID 19 testing. The patient is known to have COPD. The patient was quite hypoxic on 10 L of oxygen by nasal cannula with a pulse ox of 94%. The patient was treated with a combination of Rocephin and Zithromax. Comorbid conditions include COPD, smoker, prostate cancer with a previous prostatectomy and hyperlipidemia. Patient also developed paroxysmal atrial fibrillation. The patient was in atrial fibrillation in the emergency department. The patient was started on IV heparin. Cardiology the case for rate control. The patient had an echocardiogram that showed normal ejection fraction. On today's evaluation of 05/22/2020, the patient is feeling better. His shortness of breath. He is on 8 L of oxygen by nasal cannula. His pro- calcitonin level is down to 4.04. Repeat chest x-ray was done today and is significant consolidation of the left upper lobe with some improvement compared to yesterday. The patient has no hemoptysis. No pleurisy.furthermore, his FiO2 is down to 4 L of oxygen by nasal cannula. Blood cultures negative. The patient has been in atrial fibrillation. on today's evaluation of 05/23/2020, the patient is even feeling better. He is currently on room air oxygen. He is originally urine antigen came back positive and this is most likely a Legionella pneumonia. The patient's antibiotics will be modified accordingly. He is feeling well. No nausea. No vomiting. No diarrhea. No pleurisy. No hemoptysis. on 05/24/2020, the patient is still being treated for a region in the left lung pneumonia. Clinically doing well. The patientto Levaquin yesterday. It appears as he was supposed to be done today. This was not done yet and I reordered the chest x-ray. No fever. No chills. No other new complaints otherwise for now. The patient is doing well from the pulmonary standpoint. Nevertheless, he went into atrial fibrillation with rapid ventricular response. Note that he was in A. fib at the time of admission. His echocardiogram shows a preserved LV function.no chest pain. No angina. No palpitation. Objective - Vital Signs Vital signs: Vital Signs Temp 98.2 F 12/10/20 07:37 Pulse 161 H 05/24/20 09:16 Resp 16 05/24/20 07:37 BP 103/59 05/24/20 07:37 Pulse Ox 95 05/24/20 07:37 Intake & Output 05/23/20 05/24/20 05/24/20 18:59 06:59 18:59 Intake Total 1145 Output Total 700 1200 Balance 445 -1200 Weight 121 kg 122.2 kg Intake: Oral 1145 Output: Urine 700 1200 Uretheral (Garcia) 700 Other: Voiding Method Indwelling Catheter Indwelling Catheter Indwelling Catheter - Exam Gen. appearance the patient is calm comfortable not in distress Head exam was generally normal. There was no scleral icterus or corneal arcus. Mucous membranes were moist. Neck was supple and without jugular venous distension, thyromegaly, or carotid bruits. Carotids were easily palpable bilaterally. There was no adenopathy. Lungs sounds are diminished bilaterally and the patient has coarse rhonchi. No significant wheezes. Cardiac exam revealed the PMI to be normally situated and sized. The rhythm was irregular and tachycardic consistent with atrial fibrillation with RVR. and no extrasystoles were noted during several minutes of auscultation. The first and second heart sounds were normal and physiologic splitting of the second heart sound was noted. There were no murmurs, rubs, clicks, or gallops. Abdominal exam revealed normal bowel sounds. The abdomen was soft, non-tender, and without masses, organomegaly, or appreciable enlargement of the abdominal aorta. Examination of the extremities revealed easily palpable radial, femoral and pedal pulses. There was no cyanosis, clubbing or edema. Examination of the skin revealed no evidence of significant rashes, suspicious appearing nevi or other concerning lesions. - Labs CBC & Chem 7: 05/23/20 11:38 05/23/20 11:38 Labs: Abnormal Lab Results - Last 24 Hours (Table) 05/23/20 05/23/20 Range/Units 11:38 11:38 WBC 16.5 H (3.8-10.6) k/uL RBC 4.03 L (4.30-5.90) m/uL Hgb 12.5 L (13.0-17.5) gm/dL Hct 38.1 L (39.0-53.0) % Sodium 131 L (137-145) mmol/L BUN 31 H (9-20) mg/dL Glucose 307 H (74-99) mg/dL Calcium 8.2 L (8.4-10.2) mg/dL Microbiology - Last 24 Hours (Table) 05/17/20 18:01 Blood Culture - Final Blood No Growth after 144 hours Assessment and Plan Plan: 1 acute hypoxic respiratory failure. The left upper lobe pneumonia, likely bacterial community required. The coronavirus COVID 19 testing was negative. then Legionella urine antigen was positive and this is most likely a Legionella pneumonia 2 COPD 3 history of prostate cancer with previous prostatectomy 4 hyperlipidemia 5 history of smoking 6 leukocytosis secondary to above 7 acute kidney injury, improving and normalized renal function 8 elevated Procalcitonin indicating possibility of a bacterial infection 9 recurrent atrial fibrillation. Note that the patientcame into the hospital with atrial fibrillation/RVR secondary to above currently on IV heparin and cardiology is on the case for rate control. Echocardiogram is within normal limits. patient is currently on metoprolol and is also on Eliquis. Ideology still on the case. 10 acute delirium/metabolic encephalopathy secondary to above, improved 11 hyponatremia, improved Plan the patient is improving from the pulmonary standpoint. The patient is currently on room air oxygen with a pulse of 95 percent. Change antibiotics to Levaquin 750 mg by mouth daily I'm going to discontinue the DuoNeb nebulized treatments which probably is contributing to his A. fib RVR. Repeat chest x-ray Cardiology to comment on the A. fib RVR and the need for medication to suppress the rapid ventricular response prednisone burst taper the patient will be staying in hospital in regards to his A. fib RVR. Further recommendations to follow by cardiology.
[2020-05-24] MEDS ORDERED: METOPROLOL TARTRATE 50 MG TAB PO STA (14:07)
[2020-05-24] MEDS ORDERED: VERAPAMIL 40 MG TAB PO SCH (16:00)
--- NOTE | 2020-05-24 16:05 | XR ---
EXAMINATION TYPE: XR chest 1V portable DATE OF EXAM: 05/24/2020 COMPARISON: October INDICATION: 05/22/2020 TECHNIQUE: Single frontal view of the chest is obtained. FINDINGS: The heart size is mildly prominent. The pulmonary vasculature is normal. Small infiltrate remains in the left upper lung. This has improved from comparison. Small infiltrate is present at the left lung base. This is new. Correlate for subsegmental atelectasi s. IMPRESSION: 1. Improving left upper lobe pneumonia. 2. Some developing subsegmental atelectasis or infiltrate at the left base may be present.
[2020-05-24] MEDS: METOPROLOL TARTRATE 25 MG TAB PO SCH ×2 (17:04→21:35)
[2020-05-24] MEDS: TAMSULOSIN 0.4 MG CAP.ER.24H PO SCH (17:04)
--- NOTE | 2020-05-24 20:35 | P.PN ---
Progress Note - Text Progress Note Date: 05/24/20 Chief Complaint: Short of breath History of presenting complaint: This is 70-year-old patient who was working in his yard all weekend. Thursday evening he started feeling very weak and rundown. To the point that he is unable to get out of his chair. As a result. 2 or 3 falls last couple days. Also short of breath. He had vomited 1. Also spoke perspiring. Patient was somewhat delirious. No diarrhea no constipation no back pain no urinary symptoms. Normally in good health. Long-standing smoker. No stigmata history this morning sometimes being distant with his history. Patient developed A. fib with rapid ventricular rate in the ER without in the 150s. Started IV heparin and Cardizem drip. Admitted with left-sided lobar pneumonia, delirium, sepsis. Also paroxysmal atrial fibrillation with rapid ventricular rate went back into sinus rhythm back into A. fib again.. On IV Zosyn IV heparin. Tested positive for Legionella. Antibiotic changed to Levaquin. Today-doing well. Breathing better. Heart rate still uncontrolled. On room air. Oral intake good. Review of systems: Was done for constitutional, cardiovascular, GI, pulmonary. relevant finding as above Active Medications Acetaminophen (Acetaminophen Tab 500 Mg Tab) 1,000 mg PO Q6HR PRN PRN Reason: Fever and/ or Pain Last Admin: 05/19/20 20:16 Dose: 1,000 mg Documented by: Apixaban (Apixaban 5 Mg Tab) 5 mg PO BID [facility] Last Admin: 05/24/20 09:12 Dose: 5 mg Documented by: Atorvastatin Calcium (Atorvastatin 20 Mg Tab) 20 mg PO DAILY [facility] Last Admin: 05/24/20 09:13 Dose: 20 mg Documented by: Levofloxacin (Levofloxacin 750 Mg Tab) 750 mg PO DAILY [facility] Last Admin: 05/24/20 09:12 Dose: 750 mg Documented by: Metoprolol Tartrate (Metoprolol Tartrate 25 Mg Tab) 75 mg PO TID [facility] Last Admin: 05/24/20 17:04 Dose: 75 mg Documented by: Miscellaneous Information (Pneumonia Protocol Utilized 1 Each [facility] [place]) 1 each PO ONCE PRN PRN Reason: Per Protocol Prednisone (Prednisone 20 Mg Tab) 40 mg PO DAILY [facility] Last Admin: 05/24/20 09:13 Dose: 40 mg Documented by: Tamsulosin HCl (Tamsulosin 0.4 Mg Cap.Er.24h) 0.4 mg PO PC-SUPPER [facility] Last Admin: 05/24/20 17:04 Dose: 0.4 mg Documented by: Verapamil HCl (Verapamil 40 Mg Tab) 40 mg PO TID [facility] Last Admin: 05/24/20 17:04 Dose: 40 mg Documented by: Physical examination: VITAL SIGNS: 97.7, 140, 16, 111/65, 94% room air GENERAL: Sitting up in a chair, awake EYES: Pupils equal. Conjunctiva normal. NECK: JVD not raised; masses not palpable. HEART: Heart sounds irregular; no edema. LUNGS: Respiratory rate increased, decreased breaths sounds, ABDOMEN: Soft, nontender, liver spleen not palpable, no masses palpable. PSYCH: AO - times three. Mood and affect normal INVESTIGATIONS, reviewed in the clinical context: May 23: White count 16.5 hemoglobin 12.5 potassium 5 creatinine 0.73 May 21:white count 12.5 hemoglobin 11.8 potassium 4.3 creatinine 0.84pro- calcitonin 4.04 May 20: White count 15.1 hemoglobin 12.1 May 19: White count 13 hemoglobin 12.1 increased neutrophils, decreased lymphocytes d-dimer 2.25 sodium 1:30 potassium 4.2 creatinine 0.95 CRP 505. Check stat [id number] upper lobe pneumonia White count 15.4 neutrophils 14.2 lymphocytes decreased to 0.3 D-dimer 4.06 sodium 129 creatinine 1.2 to LDH 732 CRP 423.9 protocol Gisella and 1.11 Coronavirus P/Cr-not detected Chest x-ray film personally reviewed by me-large area of consolidation on the left upper lobe Chest CTA-negative for PE, left upper lobe airspace consolidation EKG tracing personally reviewed by me-normal sinus rhythm 2-D echocardiogram-EF 50-55% Urine Legionella antigen-positive Assessment: -Large left upper lobar pneumonia, Legionella severe, POA- [Negative for Coronavirus P/Cr]-improving -Acute severe hypoxic respiratory improved. Now on room air -Severe sepsis secondary to pneumonia- better -Acute delirium, metabolic encephalopathy from above- improved -Hyponatremia likely from decreased fluid intake -Clinical dehydration -Paroxysmal Atrial fibrillation with a rapid ventricular rate.-Back into sinus rhythm. In and out of atrial fibrillation.-Uncontrolled Plan: Patient on eliquis, Levaquin, Lopressor 75 mg 3 times a day, verapamil 40 mg 3 times a day. Discussed with patient
[2020-05-25] MEDS: LEVOFLOXACIN 750 MG TAB PO SCH (10:09)
[2020-05-25] MEDS: predniSONE 20 MG TAB PO SCH (10:10)
[2020-05-25] MEDS: METOPROLOL TARTRATE 25 MG TAB PO SCH ×3 (10:10→20:57)
[2020-05-25] MEDS: APIXABAN 5 MG TAB PO SCH ×2 (10:10→20:57)
[2020-05-25] MEDS: VERAPAMIL 40 MG TAB PO SCH ×3 (10:10→20:57)
[2020-05-25] MEDS: ATORVASTATIN 20 MG TAB PO SCH (10:10)
--- NOTE | 2020-05-25 16:46 | P.PN ---
Subjective Progress Note Date: 05/25/20 70-year-old male patient with acute hypoxic respiratory failure secondary to the left upper lobe pneumonia, community-acquired. The patient has a negative coronavirusCOVID 19 testing. The patient is known to have COPD. The patient was quite hypoxic on 10 L of oxygen by nasal cannula with a pulse ox of 94%. The patient was treated with a combination of Rocephin and Zithromax. Comorbid conditions include COPD, smoker, prostate cancer with a previous prostatectomy and hyperlipidemia. Patient also developed paroxysmal atrial fibrillation. The patient was in atrial fibrillation in the emergency department. The patient was started on IV heparin. Cardiology the case for rate control. The patient had an echocardiogram that showed normal ejection fraction. On today's evaluation of 05/22/2020, the patient is feeling better. His shortness of breath. He is on 8 L of oxygen by nasal cannula. His pro- calcitonin level is down to 4.04. Repeat chest x-ray was done today and is significant consolidation of the left upper lobe with some improvement compared to yesterday. The patient has no hemoptysis. No pleurisy.furthermore, his FiO2 is down to 4 L of oxygen by nasal cannula. Blood cultures negative. The patient has been in atrial fibrillation. on today's evaluation of 05/23/2020, the patient is even feeling better. He is currently on room air oxygen. He is originally urine antigen came back positive and this is most likely a Legionella pneumonia. The patient's antibiotics will be modified accordingly. He is feeling well. No nausea. No vomiting. No diarrhea. No pleurisy. No hemoptysis. on 05/24/2020, the patient is still being treated for a region in the left lung pneumonia. Clinically doing well. The patientto Levaquin yesterday. It appears as he was supposed to be done today. This was not done yet and I reordered the chest x-ray. No fever. No chills. No other new complaints otherwise for now. The patient is doing well from the pulmonary standpoint. Nevertheless, he went into atrial fibrillation with rapid ventricular response. Note that he was in A. fib at the time of admission. His echocardiogram shows a preserved LV function.no chest pain. No angina. No palpitation. On today's evaluation, the patient has no specific complaints. The patient has been diagnosed having a Legionella pneumonia and paroxysmal atrial fibrillation. In terms of the pneumonia, the patient on Levaquin and the patient is improving. The subsequent chest x-ray that was done today showed improvement in the left upper lobe pulmonary consolidation and there was some subsegmental atelectatic changes and left lung base. Nevertheless, the patient is having issues with atrial fibrillation. This morning is in atrial fibrillation. Rate is still tachycardic. The patient is currently on verapamil 40 mg 3 times a day and metoprolol was also added yesterday and it was a 75 mg by mouth 3 times a day. Rate is under better control gradually with administration of these medications. The patient was also started on anticoagulation and the patient is currently on Eliquis 5 mg by mouth twice a day. He is currently on room air oxygen. 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 Cardiotonic is still no syncope. No chest pain. Objective - Vital Signs Vital signs: Vital Signs Temp 98 F 05/25/20 15:08 Pulse 141 H 05/25/20 15:08 Resp 16 05/25/20 15:08 BP 118/62 05/25/20 15:08 Pulse Ox 94 L 05/25/20 15:08 Intake & Output 05/24/20 05/25/20 05/25/20 18:59 06:59 18:59 Intake Total 1800 305 Output Total 1000 1100 2350 Balance 800 -1100 -2045 Weight 120.7 kg Intake: Oral 1800 305 Output: Urine 1000 1100 2350 Uretheral (Garcia) 1000 1000 1250 Other: Voiding Method Indwelling Catheter Indwelling Catheter Indwelling Catheter # Voids 1 - Exam Gen. appearance the patient is calm comfortable not in distress Head exam was generally normal. There was no scleral icterus or corneal arcus. Mucous membranes were moist. Neck was supple and without jugular venous distension, thyromegaly, or carotid bruits. Carotids were easily palpable bilaterally. There was no adenopathy. Lungs sounds are diminished bilaterally and the patient has coarse rhonchi. No significant wheezes. Cardiac exam revealed the PMI to be normally situated and sized. The rhythm was irregular and tachycardic consistent with atrial fibrillation with RVR. and no extrasystoles were noted during several minutes of auscultation. The first and second heart sounds were normal and physiologic splitting of the second heart sound was noted. There were no murmurs, rubs, clicks, or gallops. Abdominal exam revealed normal bowel sounds. The abdomen was soft, non-tender, and without masses, organomegaly, or appreciable enlargement of the abdominal aorta. Examination of the extremities revealed easily palpable radial, femoral and pedal pulses. There was no cyanosis, clubbing or edema. Examination of the skin revealed no evidence of significant rashes, suspicious appearing nevi or other concerning lesions. 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 The patient had Legionella pneumonia involving the left upper lobe and the patient is improved and the patient is currently on room air oxygen. Consolidation of the left upper lobes also improving. 2 COPD 3 history of prostate cancer with previous prostatectomy 4 hyperlipidemia 5 history of smoking 6 leukocytosis secondary to above 7 acute kidney injury, improving and normalized renal function 8 elevated Procalcitonin indicating possibility of a bacterial infection 9 recurrent atrial fibrillation. Note that the patientcame into the hospital with atrial fibrillation/RVR secondary to above currently on IV heparin and cardiology is on the case for rate control. Echocardiogram is within normal limits. patient is currently on metoprolol and is also on Eliquis. The rate is being managed by cardiology. The patient is currently on a combination of metoprolol and verapamil. 10 acute delirium/metabolic encephalopathy secondary to above, improved 11 hyponatremia, improved Plan Continue Levaquin 750 mg by mouth daily. The patient was reassured on the results of the chest x-ray which showed marked improvement. Cardiology to comment on the A. fib RVR and the need for medication to suppress the rapid ventricular response, the patient is currently on examination of verap mercedes and metoprolol prednisone burst taper starting with 40 mg the patient will be staying in hospital in regards to his A. fib RVR. Pulmonary status is much improved.
[2020-05-25] MEDS: metFORMIN 500 MG TAB PO SCH (17:21)
[2020-05-25] MEDS: TAMSULOSIN 0.4 MG CAP.ER.24H PO SCH (17:21)
[2020-05-25] MEDS: INSULIN ASPART (NovoLOG) 100 UNIT/ML VIAL SQ SCH ×2 (17:21→20:57)
[2020-05-25 17:23] LABS: Glucose,Whole Blood 154 mg/dL (75-99)
[2020-05-25 20:48] LABS: Glucose,Whole Blood 179 mg/dL (75-99)
[2020-05-25 21:35] VITALS: RESP 18
--- NOTE | 2020-05-25 22:35 | P.PN ---
Progress Note - Text Progress Note Date: 05/25/20 Chief Complaint: Short of breath History of presenting complaint: This is 70-year-old patient who was working in his yard all weekend. Thursday evening he started feeling very weak and rundown. To the point that he is unable to get out of his chair. As a result. 2 or 3 falls last couple days. Also short of breath. He had vomited 1. Also spoke perspiring. Patient was somewhat delirious. No diarrhea no constipation no back pain no urinary symptoms. Normally in good health. Long-standing smoker. No stigmata history this morning sometimes being distant with his history. Patient developed A. fib with rapid ventricular rate in the ER without in the 150s. Started IV heparin and Cardizem drip. Admitted with left-sided lobar pneumonia, delirium, sepsis. Also paroxysmal atrial fibrillation with rapid ventricular rate went back into sinus rhythm back into A. fib again.. On IV Zosyn IV heparin. Tested positive for Legionella. Antibiotic changed to Levaquin. Today-breathing stable. A. fib remains uncontrolled up to 150s. Oral intake fair. Review of systems: Was done for constitutional, cardiovascular, GI, pulmonary. relevant finding as above Active Medications Acetaminophen (Acetaminophen Tab 500 Mg Tab) 1,000 mg PO Q6HR PRN PRN Reason: Fever and/ or Pain Last Admin: 05/19/20 20:16 Dose: 1,000 mg Documented by: Apixaban (Apixaban 5 Mg Tab) 5 mg PO BID [facility] Last Admin: 05/25/20 20:57 Dose: 5 mg Documented by: Atorvastatin Calcium (Atorvastatin 20 Mg Tab) 20 mg PO DAILY [facility] Last Admin: 05/25/20 10:10 Dose: 20 mg Documented by: Insulin Aspart (Insulin Aspart (Novolog) 100 Unit/Ml Vial) 0 unit SQ ACHS [facility]; Protocol Last Admin: 05/25/20 20:57 Dose: 3 unit Documented by: Levofloxacin (Levofloxacin 750 Mg Tab) 750 mg PO DAILY [facility] Last Admin: 05/25/20 10:09 Dose: 750 mg Documented by: Metformin HCl (Metformin 500 Mg Tab) 500 mg PO AC-BID [facility] Last Admin: 05/25/20 17:21 Dose: 500 mg Documented by: Metoprolol Tartrate (Metoprolol Tartrate 25 Mg Tab) 75 mg PO TID [facility] Last Admin: 05/25/20 20:57 Dose: 75 mg Documented by: Miscellaneous Information (Pneumonia Protocol Utilized 1 Each [facility] [place]) 1 each PO ONCE PRN PRN Reason: Per Protocol Prednisone (Prednisone 20 Mg Tab) 40 mg PO DAILY [facility] Last Admin: 05/25/20 10:10 Dose: 40 mg Documented by: Tamsulosin HCl (Tamsulosin 0.4 Mg Cap.Er.24h) 0.4 mg PO PC-SUPPER [facility] Last Admin: 05/25/20 17:21 Dose: 0.4 mg Documented by: Verapamil HCl (Verapamil 40 Mg Tab) 40 mg PO TID [facility] Last Admin: 05/25/20 20:57 Dose: 40 mg Documented by: Physical examination: VITAL SIGNS: 98, 140, 16, 118/62, 94% room air GENERAL: Sitting up in a chair, comfortable EYES: Pupils equal. Conjunctiva normal. NECK: JVD not raised; masses not palpable. HEART: Heart sounds irregular; no edema. LUNGS: Respiratory rate increased, decreased breaths sounds, ABDOMEN: Soft, nontender, liver spleen not palpable, no masses palpable. PSYCH: AO - times three. Mood and affect normal INVESTIGATIONS, reviewed in the clinical context: May 23: White count 16.5 hemoglobin 12.5 potassium 5 creatinine 0.73 May 21:white count 12.5 hemoglobin 11.8 potassium 4.3 creatinine 0.84pro- calcitonin 4.04 May 20: White count 15.1 hemoglobin 12.1 May 19: White count 13 hemoglobin 12.1 increased neutrophils, decreased lymphocytes d-dimer 2.25 sodium 1:30 potassium 4.2 creatinine 0.95 CRP 505. Check stat i-qnp-gqhfyzxhu upper lobe pneumonia White count 15.4 neutrophils 14.2 lymphocytes decreased to 0.3 D-dimer 4.06 sodium 129 creatinine 1.2 to LDH 732 CRP 423.9 protocol Gisella and 1.11 Coronavirus P/Cr-not detected Chest x-ray film personally reviewed by me-large area of consolidation on the left upper lobe Chest CTA-negative for PE, left upper lobe airspace consolidation EKG tracing personally reviewed by me-normal sinus rhythm 2-D echocardiogram-EF 50-55% Urine Legionella antigen-positive Assessment: -Large left upper lobar pneumonia, Legionella severe, POA- [Negative for Coronavirus P/Cr]-much improved -Acute severe hypoxic respiratory improved. Now on room air -Severe sepsis secondary to pneumonia- better -Acute delirium, metabolic encephalopathy from above- improved -Hyponatremia likely from decreased fluid intake -Clinical dehydration -Paroxysmal Atrial fibrillation with a rapid ventricular rate.-Back into sinus rhythm. In and out of atrial fibrillation.-Remains uncontrolled Plan: Patient on eliquis, Levaquin, Lopressor 75 mg 3 times a day, verapamil 40 mg 3 times a day. Await further input from cardiology. Discussed with patient.
[2020-05-26 06:33] LABS: Glucose,Whole Blood 106 mg/dL (75-99)
[2020-05-26] MEDS: metFORMIN 500 MG TAB PO SCH (06:33)
[2020-05-26] MEDS: INSULIN ASPART (NovoLOG) 100 UNIT/ML VIAL SQ SCH ×2 (06:39→12:16)
[2020-05-26] MEDS: APIXABAN 5 MG TAB PO SCH (09:44)
[2020-05-26] MEDS: METOPROLOL TARTRATE 25 MG TAB PO SCH ×2 (09:44→15:59)
[2020-05-26] MEDS: ATORVASTATIN 20 MG TAB PO SCH (09:44)
[2020-05-26] MEDS: predniSONE 20 MG TAB PO SCH (09:44)
[2020-05-26] MEDS: VERAPAMIL 40 MG TAB PO SCH ×2 (09:44→16:00)
[2020-05-26] MEDS: LEVOFLOXACIN 750 MG TAB PO SCH (09:44)
[2020-05-26 09:56] VITALS: TEMP 97.6
--- NOTE | 2020-05-26 10:11 | P.PN ---
Subjective Progress Note Date: 05/26/20 70-year-old male patient with acute hypoxic respiratory failure secondary to the left upper lobe pneumonia, community-acquired. The patient has a negative coronavirusCOVID 19 testing. The patient is known to have COPD. The patient was quite hypoxic on 10 L of oxygen by nasal cannula with a pulse ox of 94%. The patient was treated with a combination of Rocephin and Zithromax. Comorbid conditions include COPD, smoker, prostate cancer with a previous prostatectomy and hyperlipidemia. Patient also developed paroxysmal atrial fibrillation. The patient was in atrial fibrillation in the emergency department. The patient was started on IV heparin. Cardiology the case for rate control. The patient had an echocardiogram that showed normal ejection fraction. On today's evaluation of 05/22/2020, the patient is feeling better. His shortness of breath. He is on 8 L of oxygen by nasal cannula. His pro- calcitonin level is down to 4.04. Repeat chest x-ray was done today and is significant consolidation of the left upper lobe with some improvement compared to yesterday. The patient has no hemoptysis. No pleurisy.furthermore, his FiO2 is down to 4 L of oxygen by nasal cannula. Blood cultures negative. The patient has been in atrial fibrillation. on today's evaluation of 05/23/2020, the patient is even feeling better. He is currently on room air oxygen. He is originally urine antigen came back positive and this is most likely a Legionella pneumonia. The patient's antibiotics will be modified accordingly. He is feeling well. No nausea. No vomiting. No diarrhea. No pleurisy. No hemoptysis. on 05/24/2020, the patient is still being treated for a region in the left lung pneumonia. Clinically doing well. The patientto Levaquin yesterday. It appears as he was supposed to be done today. This was not done yet and I reordered the chest x-ray. No fever. No chills. No other new complaints otherwise for now. The patient is doing well from the pulmonary standpoint. Nevertheless, he went into atrial fibrillation with rapid ventricular response. Note that he was in A. fib at the time of admission. His echocardiogram shows a preserved LV function.no chest pain. No angina. No palpitation. On today's evaluation, the patient has no specific complaints. The patient has been diagnosed having a Legionella pneumonia and paroxysmal atrial fibrillation. In terms of the pneumonia, the patient on Levaquin and the patient is improving. The subsequent chest x-ray that was done today showed improvement in the left upper lobe pulmonary consolidation and there was some subsegmental atelectatic changes and left lung base. Nevertheless, the patient is having issues with atrial fibrillation. This morning is in atrial fibrillation. Rate is still tachycardic. The patient is currently on verapamil 40 mg 3 times a day and metoprolol was also added yesterday and it was a 75 mg by mouth 3 times a day. Rate is under better control gradually with administration of these medications. The patient was also started on anticoagulation and the patient is currently on Eliquis 5 mg by mouth twice a day. He is currently on room air oxygen. He is still on product picker being monitored in terms of his atrial fibrillation. Cardiotonic is still no syncope. No chest pain. On 05/26/2020, the patient is still receiving Levophed regarding the Legionella pneumonia. No respiratory difficulties. He remains in atrial fibrillation. He is on a combination of verapamil and metoprolol and is on long-term anticoagulation with Eliquis. No angina. No palpitation. No chest pain. No reported sputum production. No other significant complaints otherwise for now. Is on room air oxygen. Objective - Vital Signs Vital signs: Vital Signs Temp 97.6 F 05/26/20 09:45 Pulse 113 H 05/26/20 09:45 Resp 18 05/26/20 09:45 BP 114/56 05/26/20 09:45 Pulse Ox 95 05/26/20 09:45 Intake & Output 05/25/20 05/26/20 05/26/20 18:59 06:59 18:59 Intake Total 830 240 240 Output Total 2550 1000 Balance -1720 -760 240 Weight 120 kg Intake: Oral 830 240 240 Output: Urine 2550 1000 Uretheral (Garcia) 1250 Other: Voiding Method Indwelling Catheter Indwelling Catheter Toilet Urinal # Bowel Movements 0 - Exam Gen. appearance the patient is calm comfortable not in distress Head exam was generally normal. There was no scleral icterus or corneal arcus. Mucous membranes were moist. Neck was supple and without jugular venous distension, thyromegaly, or carotid bruits. Carotids were easily palpable bilaterally. There was no adenopathy. Lungs sounds are diminished bilaterally and the patient has coarse rhonchi. No significant wheezes. Cardiac exam revealed the PMI to be normally situated and sized. The rhythm was irregular and tachycardic consistent with atrial fibrillation with RVR. and no extrasystoles were noted during several minutes of auscultation. The first and second heart sounds were normal and physiologic splitting of the second heart sound was noted. There were no murmurs, rubs, clicks, or gallops. Abdominal exam revealed normal bowel sounds. The abdomen was soft, non-tender, and without masses, organomegaly, or appreciable enlargement of the abdominal aorta. Examination of the extremities revealed easily palpable radial, femoral and pedal pulses. There was no cyanosis, clubbing or edema. Examination of the skin revealed no evidence of significant rashes, suspicious appearing nevi or other concerning lesions. 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 The patient had Legionella pneumonia involving the left upper lobe and the patient i s improved and the patient is currently on room air oxygen. Consolidation of the left upper lobes also improving. No new complaints for today 2 COPD 3 history of prostate cancer with previous prostatectomy 4 hyperlipidemia 5 history of smoking 6 leukocytosis secondary to above 7 acute kidney injury, improving and normalized renal function 8 elevated Procalcitonin indicating possibility of a bacterial infection 9 recurrent atrial fibrillation. Note that the patientcame into the hospital with atrial fibrillation/RVR secondary to above currently on IV heparin and cardiology is on the case for rate control. Echocardiogram is within normal limits. patient is currently on metoprolol and is also on Eliquis. The rate is being managed by cardiology. The patient is currently on a combination of metoprolol and verapamil. 10 acute delirium/metabolic encephalopathy secondary to above, improved 11 hyponatremia, improved Plan Continue Levaquin 750 mg by mouth daily. Clinically improving Chest x-ray improving 2 atrial fibrillation and the patient's rate is under better control Continue metoprolol and verapamil and Catapres prednisone burst taper starting with 40 mg Discharge once cleared by cardiology ,Pulmonary status is much improved.
[2020-05-26 12:16] LABS: Glucose,Whole Blood 117 mg/dL (75-99)
[2020-05-26 14:15] LABS: Hemoglobin A1C 6.7 % (4.0-6.0)
[2020-05-26 15:59] VITALS: BP 106/57; PULSE 115
--- NOTE | 2020-05-26 21:18 | P.DS ---
Providers Date of admission: 05/17/20 17:29 Expected date of discharge: 05/26/20 Attending physician: Ryland Saldana Consults: 05/18/20 08:03 Consult Physician Stat Consulting Provider: Rosalie Chang Consult Reason/Comments: a fib new onset Do you want consulting provider notified?: Already Contacted 05/18/20 16:24 Consult Physician Stat Consulting Provider: Nathen Brown Consult Reason/Comments: SOB Do you want consulting provider notified?: Yes Primary care physician: [facility] Course: Chief Complaint: Short of breath History of presenting complaint: This is 70-year-old patient who was working in his yard all weekend. Thursday evening he started feeling very weak and rundown. To the point that he is unable to get out of his chair. As a result. 2 or 3 falls last couple days. Also short of breath. He had vomited 1. Also spoke perspiring. Patient was somewhat delirious. No diarrhea no constipation no back pain no urinary symptoms. Normally in good health. Long-standing smoker. No stigmata history this morning sometimes being distant with his history. Patient developed A. fib with rapid ventricular rate in the ER without in the 150s. Started IV heparin and Cardizem drip. Admitted with left-sided lobar pneumonia, delirium, sepsis. Also paroxysmal atrial fibrillation with rapid ventricular rate went back into sinus rhythm back into A. fib again.. On IV Zosyn IV heparin. Tested positive for Legionella. Antibiotic changed to Levaquin. Today-doing better. But activity heart rate goes up to 130s. Patient doing well. Cleared by cardiology and pulmonary. Discussed with Dr. Dean. Discussed with the patient. Pulse oxing well on room air. Discussion and discharge planning more than 35 minutes Consultation: Dr. Dean from [facility] Physical examination: VITAL SIGNS: 97.6, 115, 18, 106/57, 93% room air GENERAL: Sitting up in a chair, comfortable EYES: Pupils equal. Conjunctiva normal. NECK: JVD not raised; masses not palpable. HEART: Heart sounds irregular; no edema. LUNGS: Respiratory rate increased, decreased breaths sounds, ABDOMEN: Soft, nontender, liver spleen not palpable, no masses palpable. PSYCH: AO - times three. Mood and affect normal INVESTIGATIONS, reviewed in the clinical context: May 23: White count 16.5 hemoglobin 12.5 potassium 5 creatinine 0.73 May 21:white count 12.5 hemoglobin 11.8 potassium 4.3 creatinine 0.84pro- calcitonin 4.04 May 20: White count 15.1 hemoglobin 12.1 May 19: White count 13 hemoglobin 12.1 increased neutrophils, decreased lymphocytes d-dimer 2.25 sodium 1:30 potassium 4.2 creatinine 0.95 CRP 505. Check stat [id number] upper lobe pneumonia White count 15.4 neutrophils 14.2 lymphocytes decreased to 0.3 D-dimer 4.06 sodium 129 creatinine 1.2 to LDH 732 CRP 423.9 protocol Gisella and 1.11 Coronavirus P/Cr-not detected Chest x-ray film personally reviewed by me-large area of consolidation on the left upper lobe Chest CTA-negative for PE, left upper lobe airspace consolidation EKG tracing personally reviewed by me-normal sinus rhythm 2-D echocardiogram-EF 50-55% Urine Legionella antigen-positive Assessment: -Large left upper lobar pneumonia, Legionella severe, POA- [Negative for Coronavirus P/Cr]- -Acute severe hypoxic respiratory improved. doing well on room air -Severe sepsis secondary to pneumonia- better -Acute delirium, metabolic encephalopathy from above- improved -Hyponatremia likely from decreased fluid intake-corrected -Clinical dehydration -Paroxysmal Atrial fibrillation with a rapid ventricular rate.-Back into sinus rhythm. In and out of atrial fibrillation.- Disposition: Home Patient Condition at Discharge: Stable Plan - Discharge Summary Discharge Rx Participant: Yes New Discharge Prescriptions: New Apixaban [Eliquis] 5 mg PO BID #60 tab Tamsulosin [Flomax] 0.4 mg PO PC-SUPPER #30 cap.er.24h metFORMIN HCL [Glucophage] 500 mg PO AC-BID #60 tab Verapamil [Isoptin] 40 mg PO TID #90 tab Levofloxacin [Levaquin] 750 mg PO DAILY #7 tab Metoprolol Tartrate [Lopressor] 75 mg PO TID #100 tab predniSONE 0 mg PO DIRECTED #12 tab Continue Atorvastatin [Lipitor] 20 mg PO DAILY Discontinued Chlorhexidine Gluconate [Peridex] 15 ml PO BID Discharge Medication List Atorvastatin [Lipitor] 20 mg PO DAILY 05/17/20 [History] Apixaban [Eliquis] 5 mg PO BID #60 tab 05/21/20 [Rx] Levofloxacin [Levaquin] 750 mg PO DAILY #7 tab 05/26/20 [Rx] Metoprolol Tartrate [Lopressor] 75 mg PO TID #100 tab 05/26/20 [Rx] Tamsulosin [Flomax] 0.4 mg PO PC-SUPPER #30 cap.er.24h 05/26/20 [Rx] Verapamil [Isoptin] 40 mg PO TID #90 tab 05/26/20 [Rx] metFORMIN HCL [Glucophage] 500 mg PO AC-BID #60 tab 05/26/20 [Rx] predniSONE 0 mg PO DIRECTED #12 tab 05/26/20 [Rx] Follow up Appointment(s)/Referral(s): Jenaro Rivera DO [Primary Care Provider] - 1-2 days (Please call on Thursday to make appointment.) Noel Toro MD [STAFF PHYSICIAN] - 2 Weeks (Please call on Thursday to make appointment. (No answer to phone call on Thursday at office)) Maryan Dean MD [STAFF PHYSICIAN] - 1 Week (Call office to make an appoi ntment on Thursday.) Patient Instructions/Handouts: Legionnaires Disease (DC) Activity/Diet/Wound Care/Special Instructions: Eliquis filled at [facility] will be $45/month Check blood sugar levels every morning before eating and record. Take record with you to Dr. hewitt. Discharge Disposition: HOME SELF-CARE Care Plan Goals (MU): Activity as tolerated
== END 2020-05-26 16:42 | disposition home or self-care (01) | DRG 871 ==
LOC: EC 14:46 → 4SSUR 17:29 → 3SCARD 05-18 08:50
PROVIDERS: ADMIT Hospitalist; ATTEND Hospitalist
PROC: 5A09357 Assistance with Respiratory Ventilation, Less than 24 Consecutive Hours, Continuous Positive Airway Pressure (ICD-10-PCS; principal; 2020-05-19)
DX: A41.59 Other Gram-negative sepsis (principal); J96.01 Acute respiratory failure with hypoxia; G93.41 Metabolic encephalopathy; A48.1 Legionnaires' disease; F05 Delirium due to known physiological condition; J44.0 Chronic obstructive pulmonary disease with (acute) lower respiratory infection; I48.19 Other persistent atrial fibrillation; E87.1 Hypo-osmolality and hyponatremia; N17.9 Acute kidney failure, unspecified; R65.20 Severe sepsis without septic shock; Z20.828 Contact with and (suspected) exposure to other viral communicable diseases; R29.6 Repeated falls; F17.210 Nicotine dependence, cigarettes, uncomplicated; E86.0 Dehydration; E78.5 Hyperlipidemia, unspecified; Z79.01 Long term (current) use of anticoagulants; Z85.46 Personal history of malignant neoplasm of prostate; Z90.79 Acquired absence of other genital organ(s); Z79.899 Other long term (current) drug therapy; Z98.890 Other specified postprocedural states
CPT/HCPCS: 36415; 36600; 70450; 71045; 71046; 71275; 72125; 80048; 80053; 80202; 81001; 82565; 82728; 82805; 83036; 83605; 83615; 83735; 83880; 84145; 84443; 85025; 85027; 85379; 85610; 85730; 86140; 87040; 87449; 87635; 93005; 93306; 94640; 96361; 96365; 96366; 96367; 96368; 96376; 99285

== ENCOUNTER → 2020-06-13 | Outpatient (CLI) | payer MEDICARE ==
[2020-06-14 02:46] LABS: African American GFR (CKD) 104.9 (60.0-200.0); Albumin 4.2 g/dL (3.80-4.90); Albumin/Globulin Ratio 1.83 (1.60-3.17); Anion Gap 13.5 mmol/L (4.00-12.00); BUN/Creat Ratio 16.25 Ratio (12.00-20.00); Calcium 9.3 mg/dL (8.7-10.3); Carbon Dioxide 23.5 mmol/L (21.6-31.8); Chol/HDL Ratio 3.93; Globulin 2.3 g/dL (1.6-3.3); LDL Cholesterol,Calculated 109.4 mg/dL (0.0-131.0); Non-African American GFR(CKD) 90.5 (60.0-200.0); Potassium 4.5 mmol/L (3.5-5.5); Total Bilirubin 0.4 mg/dL (0.2-1.2); Total Protein 6.5 g/dL (6.2-8.2); VLDL Calculation 22.6 mg/dL (5.00-40.00)
== END | disposition home or self-care (01) ==
LOC: LABWHC1 10:43
PROVIDERS: ATTEND Nurse Practitioner Adult Health
DX: I10 Essential (primary) hypertension (principal); E78.2 Mixed hyperlipidemia
CPT/HCPCS: 36415; 80053; 80061

== ENCOUNTER → 2020-06-13 | Outpatient (CLI) | payer MEDICARE ==
--- NOTE | 2020-06-13 13:32 | XR ---
EXAMINATION TYPE: XR chest 2V DATE OF EXAM: 06/13/2020 COMPARISON: 05/24/2020 HISTORY: 70-year-old male A48.1, legionnaires disease. TECHNIQUE: Frontal and lateral views FINDINGS: Heart upper limits of normal in size. Aorta and pulmonary vasculature within normal limits. Improving consolidation left upper lobe. Minimal residual density remains. Patchy density at the left base als o shows improvement with minimal residual density. No pleural effusion. IMPRESSION: Previously seen left upper lobe consolidation and previously seen infiltrate at the left base show im provement. Minimal residual densities remain.
== END | disposition home or self-care (01) ==
LOC: RADXRMAIN 10:57
PROVIDERS: ATTEND Family Medicine
DX: R91.8 Other nonspecific abnormal finding of lung field (principal)
CPT/HCPCS: 71046

== ENCOUNTER → 2020-08-02 | Outpatient (CLI) | payer MEDICARE ==
[2020-08-02 13:48] LABS: HCT 38.2 % (39.0-53.0); HGB 13.2 gm/dL (13.0-17.5); MCH 30.7 pg (25.0-35.0); MCHC 34.5 g/dL (31.0-37.0); Mean Platelet Volume 6.6; Platelet Count 274 k/uL (150-450); RBC 4.29 m/uL (4.30-5.90); RDW 13.1 % (11.5-15.5); WBC 8.8 k/uL (3.8-10.6)
[2020-08-02 13:58] LABS: African American GFR (CKD) >90 (>60 ml/min/1.73 sqM); Anion Gap 9 mmol/L; Blood Urea Nitrogen 24 mg/dL (9-20); Carbon Dioxide 27 mmol/L (22-30); Chloride 100 mmol/L (98-107); Non-African American GFR(CKD) 88 (>60 ml/min/1.73 sqM); Potassium 4.8 mmol/L (3.5-5.1); Sodium 136 mmol/L (137-145)
== END | disposition home or self-care (01) ==
LOC: LABPAT 13:05
PROVIDERS: ATTEND Internal Medicine Interventional Cardiology
DX: Z01.818 Encounter for other preprocedural examination (principal); R94.39 Abnormal result of other cardiovascular function study
CPT/HCPCS: 36415; 80051; 82565; 84520; 85027

== ENCOUNTER → 2020-08-08 | Day surgery (SDC) | payer MEDICARE ==
[2020-08-02 12:37] VITALS: BMI 31.6
[~2020-08-08] MED LIST changes: +ALPRAZolam 0.25 MG TAB PO PRN; +ALPRAZolam 0.5 MG TAB PO PRN; +ASPIRIN 325 MG TAB PO STA; +ATORVASTATIN 40 MG TAB PO SCH; +ATORVASTATIN 80 MG TAB PO STA; +HEPARIN SODIUM 1,000 UN/ML (10ML VL) ONE; +IOPAMIDOL-370 150ML BTL INJ ONE; -LACTATED RINGERS 1,000 ML IV SCH; +LIDOCAINE 1% INJ 10MG/ML (20 ML MDV) ONE; +LIDOCAINE 1% INJ 10MG/ML (20 ML MDV) SQ ONE; +METOPROLOL TARTRATE 25 MG TAB PO SCH; +MIDAZOLAM 2 MG/2 ML VIAL IV ONE; +NITROGLYCERIN 1000MCG/10ML SYRINGE INTRACORON ONE; +NITROGLYCERIN SL TABS 0.4 MG TAB SUBLINGUAL PRN; +RX INFO: IV CONTRAST WAS GIVEN 1 EACH MISC MISCELLANE PRN; +SODIUM CHLORIDE 0.9% 1,000 ML IV SCH; +SODIUM CHLORIDE 0.9% 1,000 ML in EMPTY BAG 1 BAG IV ONE; +VERAPAMIL 2.5 MG/ML 2 ML AMP ONE; +VERAPAMIL SYRINGE (5 MG/10 ML) INTRAARTER ONE; +fentaNYL (PF) 50 MCG/ML 2 ML AMP IV ONE; +fentaNYL (PF) 50 MCG/ML 2 ML AMP ONE; +lisinopriL 5 MG TAB PO SCH
[2020-08-08 08:13] VITALS: RESP 16; TEMP 97.5
[2020-08-08 11:45] VITALS: BP 124/58; PULSE 57
--- NOTE | 2020-08-08 14:33 | CC ---
CARDIAC CATHETERIZATION REPORT Mr. Isidro is a 70-year-old male with known history of hypertension, hyperlipidemia, diabetes mellitus, and paroxysmal atrial fibrillation, who has a prior history of smoking, who recently underwent a myocardial perfusion imaging revealed partial reversible defect consistent with stress-induced ischemia in the inferior wall. In view of that, recommendation was made regarding cardiac catheterization. The procedure as well as the risks and the complications were discussed with the patient who is in full understanding and agreement. PROCEDURE: Patient was brought to labeler in a fasting semi-sedated state after receiving fentanyl and Benadryl and achieving moderate conscious sedated state. Using Xylocaine anesthesia and Seldinger technique, a 6-Turkmen sheath was introduced in the right radial artery. Selective right and left coronary angiography performed using 5-Turkmen 3.5 bend right and left Catie catheter. Multiple views of the coronary artery including hemiaxial views were obtained. Following that, a 5-Turkmen tight pigtail catheter was introduced in the left ventricle and a 30-degree SIMS view of the left ventricle was obtained. Following that, catheter and sheath were removed. Hemostasis was obtained with deployment of TR band. There was no immediate complication. Patient was returned to his room in stable condition. Of note, the patient received 5000 units of intravenous heparin as well as intra-arterial verapamil. There was no immediate complication. FINDINGS: FLUOROSCOPY: There was calcification involving the left main and the LAD. LEFT MAIN: This is a large-sized vessel, bifurcating into left circumflex, left anterior descending artery. Left main coronary artery has no evidence of high-grade stenosis. LEFT ANTERIOR DESCENDING ARTERY: This is a large-sized vessel, calcified proximally giving rise to 2 diagonal branches of moderate caliber. The left anterior descending artery proximally has a mild plaque of 10% to 20%. The rest of the vessel has no high- grade stenosis. It tapers down in the distal third. LEFT CIRCUMFLEX: This is a large nondominant vessel giving rise to 2 obtuse marginal branches. The first one is very proximal. The first obtuse marginal branch has a 20% to 30% plaque proximally. The circumflex after that has another 10% to 20% plaque. The rest of the vessel has no high-grade stenosis. RIGHT CORONARY ARTERY: This is a dominant vessel large in caliber bifurcating distally PDA and posterolateral segment and branches the right PDA reaches toward the inferoapical wall. The right coronary artery as well as branches have no evidence of obstructive coronary artery disease. LEFT VENTRICULOGRAM: The left ventriculogram was performed in 30-degree SIMS view and revealed normal left ventricular size and systolic function. Ejection fraction is 60%. There was no significant mitral regurgitation. HEMODYNAMICS: There was no gradient across the aortic valve. The left ventricular end-diastolic pressure was 14 to 16 mmHg. CONCLUSION: 1. Calcified coronary arteries predominantly the left main and the left anterior descending artery. 2. Mild disease in the left circumflex and the left anterior descending artery. 3. Normal left ventricular size and systolic function. RECOMMENDATION: In view of finding anatomy, I recommend continue medical therapy with aggressive coronary risk modifications that have been initiated. Those findings and recommendations were discussed with the patient and he is in full understanding and agreement. Duration of sedation is 20 minutes. MMCASSANDRAL / IJN: [id number] /
--- NOTE | 2020-08-08 14:36 | LTR ---
August 08, 2020 Re: French Dwaine Dear Dr. Rivera: I had the opportunity to perform cardiac catheterization on Mr. Isidro at [facility] on the 08 of August and a full copy of procedure note will be forwarded to you. In brief, he was found to have mild obstructive coronary artery disease with preserved ventricular size and systolic function. Based on those findings I recommend to continue medical therapy with the aggressive coronary risk modifications that have been initiated. Thank you again for allowing me the opportunity to participate in his care. Please feel free to call for any questions. Sincerely yours, MD ELIZABETH BeckL / ELICEON: [id number] /
== END | disposition home or self-care (01) ==
LOC: CATHCVL 07:47
PROVIDERS: ATTEND Internal Medicine Interventional Cardiology
DX: I25.10 Atherosclerotic heart disease of native coronary artery without angina pectoris (principal); R94.39 Abnormal result of other cardiovascular function study; I48.0 Paroxysmal atrial fibrillation; I10 Essential (primary) hypertension; E78.2 Mixed hyperlipidemia; E11.9 Type 2 diabetes mellitus without complications; Z87.891 Personal history of nicotine dependence; Z79.01 Long term (current) use of anticoagulants; Z79.899 Other long term (current) drug therapy; Z79.84 Long term (current) use of oral hypoglycemic drugs; Z85.46 Personal history of malignant neoplasm of prostate
CPT/HCPCS: 93458; C1769; C1894; J2250; J2001; J3010; J1644; Q9967

== ENCOUNTER → 2021-03-19 | Outpatient (CLI) | payer MEDICARE ==
[2021-03-20 15:13] LABS: Chol/HDL Ratio 4.3 Ratio; HDL Cholesterol 42.8 mg/dL (40.00-60.00); VLDL Calculation 32.2 mg/dL (5.00-40.00)
[2021-03-20 15:29] LABS: African American GFR (CKD) 99.9 (60.0-200.0); Albumin 4.7 g/dL (3.8-4.9); Albumin/Globulin Ratio 1.81 (1.60-3.17); Anion Gap 16.5 mmol/L (4.00-12.00); BUN/Creat Ratio 23.44 Ratio (12.00-20.00); Blood Urea Nitrogen 21.1 mg/dL (9.0-27.0); Calcium 9.6 mg/dL (8.7-10.3); Carbon Dioxide 18.5 mmol/L (21.6-31.8); Globulin 2.6 g/dL (1.6-3.3); Non-African American GFR(CKD) 86.2 (60.0-200.0); Potassium 4.5 mmol/L (3.5-5.5); Total Bilirubin 0.4 mg/dL (0.30-1.20); Total Protein 7.3 g/dL (6.2-8.2)
== END | disposition home or self-care (01) ==
LOC: LABWHC1 14:12
PROVIDERS: ATTEND Nurse Practitioner Adult Health
DX: I10 Essential (primary) hypertension (principal); E78.2 Mixed hyperlipidemia
CPT/HCPCS: 36415; 80053; 80061

== ENCOUNTER → 2021-05-27 | Outpatient (CLI) | payer MEDICARE ==
--- NOTE | 2021-05-29 09:38 | CTL ---
EXAMINATION TYPE: CT Low Dose Lung DATE OF EXAM ORDERED: 05/27/2021 HISTORY: 71-year-old male Z87.891 Personal history of tobacco use. Lung cancer screening CT DLP: 95.[address] CTDI: 2.6 mGy Automated exposure control for dose reduction was used. SCREENING VISIT: Baseline screening COMPARISON: Prior PE CT 05/17/2020 TECHNIQUE: Low dose computed tomography scan was performed through the chest with coronal and sagitta l reconstructions CT DIAGNOSTIC QUALITY: Satisfactory FINDINGS: Heart normal size without pericardial effusion. Scattered three-vessel coronary artery calcifications are present. Ectatic upper descending thoracic aorta 3.5 cm. Conventional arch was a branching anatomy. Scattered nonenlarged axillary and mediastinal lymph nodes. Pretracheal lymph node measures up to 9 m m. No thoracic lymphadenopathy by CT size criteria. Borderline and mildly enlarged caliber to the main left and right pulmonary arteries measuring up to 2.5 and 2.9 cm, respectively, suggesting underlying pulmonary hypertension. Mild diffuse bronchial wall thickening. Prominent streaky areas of atelectasis in the bilateral lower lungs. Minimal scattered emphysematous change. 6 mm subpleural pulmonary nodule posterior left upper lobe, axial image 69. Unchanged from 05/17/2020 compatible with a benign etiology. The previous extensive left upper lobe consolidation seen on 2019 has resolved. No consolidation or pleural effusion. Visualized upper abdomen shows no gross abnormality. Bones: [facility] within the lower thoracic spine. Degenerative change bilateral sternoclavicular joints. IMPRESSION: 1. BI-RADS 2, benign. Stable 6 mm left upper lobe pulmonary nodule for just over a year. 2. Minimal emphysematous change. Bronchial wall thickening could represent chronic asthma or bronchit is. Prominent strandy atelectasis in the lower lungs. Recommend smoking cessation. 3. There may be underlying pulmonary arterial hypertension. Clinically correlate. CT LUNG RAD AND CT CHEST RECOMMENDATION: Lung-Rad 2 Benign Appearance or Behavior: Continue annual sc reening with LDCT in 12 months.
== END | disposition home or self-care (01) ==
LOC: RADCTMAIN 13:49
PROVIDERS: ATTEND Family Medicine
DX: Z12.2 Encounter for screening for malignant neoplasm of respiratory organs (principal); R91.1 Solitary pulmonary nodule; J43.9 Emphysema, unspecified; Z87.891 Personal history of nicotine dependence
CPT/HCPCS: 71271

== ENCOUNTER → 2021-10-02 | Outpatient (CLI) | payer MEDICARE ==
[2021-10-02 15:12] LABS: ALT 30 U/L (10-49); AST 24 U/L (14-35); Chol/HDL Ratio 3.73 Ratio; LDL Cholesterol,Calculated 112.2 mg/dL (0.0-131.0); VLDL Calculation 15.12 mg/dL (5.00-40.00)
== END | disposition home or self-care (01) ==
LOC: LABWHC1 09:49
PROVIDERS: ATTEND Nurse Practitioner Adult Health
DX: E78.2 Mixed hyperlipidemia (principal)
CPT/HCPCS: 36415; 80061; 84450; 84460

== ENCOUNTER → 2022-04-16 | Outpatient (CLI) | payer MEDICARE ==
[2022-04-16 18:26] LABS: ALT 33 U/L (10-49); AST 26 U/L (14-35); African American GFR (CKD) 104.2 (60.0-200.0); Albumin 4.5 g/dL (3.8-4.9); Albumin/Globulin Ratio 1.96 (1.60-3.17); Alkaline Phosphatase 89 U/L (41-126); BUN/Creat Ratio 19.38 Ratio (12.00-20.00); Blood Urea Nitrogen 15.5 mg/dL (9.0-27.0); Calcium 9.5 mg/dL (8.7-10.3); Carbon Dioxide 22.1 mmol/L (20.0-27.5); Chloride 102 mmol/L (96-109); Globulin 2.3 g/dL (1.6-3.3); Glucose 101 mg/dL (70-110); Non-African American GFR(CKD) 89.9 (60.0-200.0); Potassium 4.5 mmol/L (3.5-5.5); Sodium 136 mmol/L (135-145); Total Protein 6.8 g/dL (6.2-8.2)
[2022-04-16 18:27] LABS: Chol/HDL Ratio 3.69 Ratio; LDL Cholesterol,Calculated 84.7 mg/dL (0.0-131.0)
== END | disposition home or self-care (01) ==
LOC: LABWHC1 10:35
PROVIDERS: ATTEND Internal Medicine Interventional Cardiology
DX: E78.2 Mixed hyperlipidemia (principal)
CPT/HCPCS: 36415; 80053; 80061

== ENCOUNTER → 2022-07-09 | Outpatient (CLI) | payer MEDICARE ==
--- NOTE | 2022-07-09 16:58 | CTL ---
EXAMINATION TYPE: CT Low Dose Lung DATE OF EXAM ORDERED: 07/09/2022 HISTORY: Smoking history. Lung cancer screening CT DLP: 139.[address] CTDI: 3.8 mGy Automated exposure control for dose reduction was used. SCREENING VISIT: Subsequent COMPARISON: 05/27/2021 TECHNIQUE: Low dose computed tomography scan was performed through the chest at 1 mm thick sections a nd reconstructed images in the coronal plane at [address] DIAGNOSTIC QUALITY: Satisfactory FINDINGS: LUNG NODULES: Present, detailed below: 1. 0.6 cm pleural-based posterior left upper lung field nodule is stable. LUNGS: COPD: Severity: Mild, correlate for chronic bronchitis. Fibrosis: Severity: None Lymph nodes: None Other findings: None RIGHT PLEURAL SPACE: Effusion: None Calcification: None Thickening: None Pneumothorax: None LEFT PLEURAL SPACE: Effusion: None Calcification: None Thickening: None Pneumothorax: None HEART: Heart Size: Normal Coronary calcification: Mild Pericardial effusion: None OTHER FINDINGS: Upper abdomen: Normal Bony thorax: Normal Supraclavicular region: Normal Other: Ascending thoracic aorta at the level the main pulmonary artery measures 3.7 cm. The main pul monary artery at the bifurcation measures 3.2 cm. IMPRESSION: 1. No suspicious changes to suggest primary or metastatic neoplasm. FOLLOW UP CT CHEST RECOMMENDATION: 2 CT LUNG RAD: Lung-Rad 2 Benign Appearance or Behavior
== END | disposition home or self-care (01) ==
LOC: RADCTMAIN 09:39
PROVIDERS: ATTEND Family Medicine
DX: Z12.2 Encounter for screening for malignant neoplasm of respiratory organs (principal); F17.210 Nicotine dependence, cigarettes, uncomplicated
CPT/HCPCS: 71271

== ENCOUNTER 2022-10-24 10:01 | Emergency (ER) | payer MEDICARE ==
[2022-10-24 10:12] VITALS: RESP 18; TEMP 97.7
--- NOTE | 2022-10-24 10:54 | ED ---
General Adult HPI - General Chief complaint: Syncope Stated complaint: Fall/Syncope Time Seen by Provider: 10/24/22 10:20 Source: patient, RN notes reviewed Mode of arrival: ambulatory Limitations: no limitations - History of Present Illness Initial comments: Patient is a pleasant 72-year-old male presenting to the emergency department with concern for syncopal episode yesterday. Patient was using the restroom, sitting down and urinating. Patient does not recall what happened after that Realized she was at his desk. Patient states there is only minutes in between. Patient only has mild discomfort left side of the head. Patient is an eliquis h e believes secondary to atrial fibrillation. No weakness. No confusion. No chest pain or dyspnea. Patient does have history of similar symptoms once many years ago. - Related Data Home Medications Medication Instructions Recorded Confirmed Atorvastatin [Lipitor] 40 mg PO DAILY 05/17/20 10/24/22 Metoprolol Tartrate [Lopressor] 25 mg PO BID 08/02/20 10/24/22 lisinopriL [Zestril] 5 mg PO DAILY 08/02/20 10/24/22 Cholecalciferol [Vitamin D3 (25 50 mcg PO DAILY 10/24/22 10/24/22 Mcg = 1000 Iu)] Ezetimibe [Zetia] 10 mg PO DAILY 10/24/22 10/24/22 Previous Rx's Medication Instructions Recorded Apixaban [Eliquis] 5 mg PO BID #60 tab 05/21/20 Allergies Allergy/AdvReac Type Severity Reaction Status Date / Time No Known Allergies Allergy Verified 10/24/22 11:30 Review of Systems ROS Statement: Those systems with pertinent positive or pertinent negative responses have been documented in the HPI. ROS Other: All systems not noted in ROS Statement are negative. Constitutional: Denies: fever Eyes: Denies: eye pain ENT: Denies: ear pain Respiratory: Denies: cough, dyspnea Cardiovascular: Denies: chest pain Endocrine: Denies: fatigue Gastrointestinal: Denies: abdominal pain Genitourinary: Denies: dysuria Musculoskeletal: Denies: back pain Neurological: Reports: as per HPI Past Medical History Past Medical History: Cancer, Hyperlipidemia, Hypertension Additional Past Medical History / Comment(s): PROSTATE CANCER History of Any Multi-Drug Resistant Organisms: None Reported Past Surgical History: Hernia Repair Additional Past Surgical History / Comment(s): achilles tendon- bilat ANKLES. COLONOSCOPY. PROSTATE REMOVED Past Anesthesia/Blood Transfusion Reactions: No Reported Reaction Past Psychological History: No Psychological Hx Reported Smoking Status: Current every day smoker Past Alcohol Use History: Daily Past Drug Use History: None Reported - Past Family History Mother Family Medical History: No Reported History General Exam Limitations: no limitations General appearance: alert, in no apparent distress Head exam: Present: other (Minimal tenderness left parietal) Eye exam: Present: normal appearance, PERRL, EOMI ENT exam: Present: normal oropharynx Neck exam: Present: normal inspection. Absent: tenderness Respiratory exam: Present: normal lung sounds bilaterally Cardiovascular Exam: Present: normal rhythm, bradycardia Expanded Peripheral pulses: 2+: Radial (R), Radial (L), Posterior Tibialis (R), Posterior Tibialis (L) GI/Abdominal exam: Present: soft. Absent: tenderness Extremities exam: Present: normal inspection. Absent: pedal edema, calf tenderness Neurological exam: Present: alert, oriented X3, CN II-XII intact. Absent: motor sensory deficit Expanded Neurological exam: Present: protecting the airway Speech: Present: fluid speech Cranial nerves: EOM's Intact: Normal Sensory exam: Upper Extremity Light Touch: Normal, Lower Extremity Light Touch: Normal Motor strength exam: RUE: 5, LUE: 5, RLE: 5, LLE: 5 Eye Response: (4) open spontaneously Motor Response: (6) obeys commands Verbal Response: (5) oriented Psychiatric exam: Present: normal affect, normal mood Skin exam: Present: normal color Course Vital Signs 10/24/22 10/24/22 10/24/22 10:07 10:44 12:41 Temperature 97.7 F Pulse Rate 55 L 48 L 49 L Respiratory 18 18 18 Rate Blood Pressure 145/75 141/71 119/67 O2 Sat by Pulse 95 96 100 Oximetry EKG Findings - EKG Results: EKG: interpreted by ERMD, sinus rhythm, normal axis, normal QRS, normal ST/T EKG shows: bradycardia Medical Decision Making - Medical Decision Making Was pt. sent in by a medical professional or institution (, PA, VENEER LATHE OPERATOR, urgent care, hospital, or long term...) When possible be specific @ -Patient called his doctor for follow-up and was advised to be checked out in the emergency department Did you speak to anyone other than the patient for history (EMS, parent, family, police, friend...)? What history was obtained from this source @ -No Did you review nursing and triage notes (agree or disagree)? Why? @ -I reviewed and agree with nursing and triage notes Were old charts reviewed (outside hosp., previous admission, EMS record, old EKG, old radiological studies, urgent care reports/EKG's, long term records)? Report findings @ -No old charts were reviewed Differential Diagnosis (chest pain, altered mental status, abdominal pain women, abdominal pain men, vaginal bleeding, weakness, fever, dyspnea, syncope, headache, dizziness, GI bleed, back pain, seizure, CVA, palpatations, mental health)? @ -Differential Syncope: Valvular disease, hypertrophic cardiomyopathy, pulmonary embolism, tamponade, tachycardia, bradycardia, NM, hypovolemia, hemorrhage, dissection, anemia, intracranial hemorrhage, seizure, hypoglycemia, carbon monoxide poisoning, this is not meant to be an all-inclusive list. EKG interpreted by me (3pts min.). @ -As above X-rays interpreted by me (1pt min.). @ -Chest x-ray does not reveal acute process CT interpreted by me (1pt min.). @ -Report reviewed U/S interpreted by me (1pt. min.). @ -None done What testing was considered but not performed or refused? (CT, X-rays, U/S, labs)? Why? @ -None What meds were considered but not given or refused? Why? @ -None Did you discuss the management of the patient with other professionals (professionals i.e. , PA, VENEER LATHE OPERATOR, lab, RT, psych nurse, social work specialist, buckshot swage operator, teacher, security officer, director case)? Give summary @ -No Was smoking cessation discussed for >3mins.? @ -No Was critical care preformed (if so, how long)? @ -No Were there social determinants of health that impacted care today? How? (Homelessness, low income, unemployed, alcoholism, drug addiction, transportation, low edu. Level, literacy, decrease access to med. care, [facility], rehab)? @ -No Was there de-escalation of care discussed even if they declined (Discuss DNR or withdrawal of care, Hospice)? DNR status @ -No What co-morbidities impacted this encounter? (DM, HTN, Smoking, COPD, CAD, Cancer, CVA, ARF, Chemo, Hep., AIDS, mental health diagnosis, sleep apnea, morbid obesity)? @ -None Was patient admitted / discharged? Hospital course, mention meds given and route, prescriptions, significant lab abnormalities, going to OR and other pertinent info. @ -Patient reevaluated and remained symptom-free. Discussion had with patient and he prefers to be discharged home. Patient is stable at this time. Patient is advised close follow-up with his primary care physician and medical records coder and to hold blood thinner for 24 hours Undiagnosed new problem with uncertain prognosis? @ -No Drug Therapy requiring intensive monitoring for toxicity (Heparin, Nitro, Insulin, Cardizem)? @ -No Were any procedures done? @ -No Diagnosis/symptom? @ -Micturition syncope Acute, or Chronic, or Acute on Chronic? @ -Acute Uncomplicated (without systemic symptoms) or Complicated (systemic symptoms)? @ -default Side effects of treatment? @ -No Exacerbation, Progression, or Severe Exacerbation? @ -No Poses a threat to life or bodily function? How? (Chest pain, USA, NM, pneumonia, PE, COPD, DKA, ARF, appy, cholecystitis, CVA, Diverticulitis, Homicidal, Suicidal, threat to staff... and all critical care pts) @ -No - Lab Data Result diagrams: 10/24/22 10:34 10/24/22 10:34 Lab Results 10/24/22 10/24/22 10/24/22 Range/Units 10:34 10:34 10:34 WBC 9.8 (3.8-10.6) k/uL RBC 4.46 (4.30-5.90) m/uL Hgb 13.4 (13.0-17.5) gm/dL Hct 39.3 (39.0-53.0) % MCV 88.1 (80.0-100.0) fL MCH 30.1 (25.0-35.0) pg MCHC 34.2 (31.0-37.0) g/dL RDW 12.5 (11.5-15.5) % Plt Count 235 (150-450) k/uL MPV 7.1 Neutrophils % 73 % Lymphocytes % 18 % Monocytes % 5 % Eosinophils % 2 % Basophils % 0 % Neutrophils # 7.1 (1.3-7.7) k/uL Lymphocytes # 1.7 (1.0-4.8) k/uL Monocytes # 0.5 (0-1.0) k/uL Eosinophils # 0.2 (0-0.7) k/uL Basophils # 0.0 (0-0.2) k/uL PT 10.8 (9.0-12.0) sec INR 1.0 (<1.2) APTT 24.8 (22.0-30.0) sec Sodium 137 (137-145) mmol/L Potassium 4.3 (3.5-5.1) mmol/L Chloride 105 (98-107) mmol/L Carbon Dioxide 23 (22-30) mmol/L Anion Gap 9 mmol/L BUN 18 (9-20) mg/dL Creatinine 0.77 (0.66-1.25) mg/dL Est GFR (CKD-EPI)AfAm >90 (>60 ml/min/1.73 sqM) Est GFR (CKD-EPI)NonAf >90 (>60 ml/min/1.73 sqM) Glucose 109 H (74-99) mg/dL Calcium 9.0 (8.4-10.2) mg/dL Total Bilirubin 0.7 (0.2-1.3) mg/dL AST 26 (17-59) U/L ALT 25 (4-49) U/L Alkaline Phosphatase 69 (38-126) U/L Troponin I (0.000-0.034) ng/mL Total Protein 6.7 (6.3-8.2) g/dL Albumin 4.1 (3.5-5.0) g/dL 10/24/22 Range/Units 10:34 WBC (3.8-10.6) k/uL RBC (4.30-5.90) m/uL Hgb (13.0-17.5) gm/dL Hct (39.0-53.0) % MCV (80.0-100.0) fL MCH (25.0-35.0) pg MCHC (31.0-37.0) g/dL RDW (11.5-15.5) % Plt Count (150-450) k/uL MPV Neutrophils % % Lymphocytes % % Monocytes % % Eosinophils % % Basophils % % Neutrophils # (1.3-7.7) k/uL Lymphocytes # (1.0-4.8) k/uL Monocytes # (0-1.0) k/uL Eosinophils # (0-0.7) k/uL Basophils # (0-0.2) k/uL PT (9.0-12.0) sec INR (<1.2) APTT (22.0-30.0) sec Sodium (137-145) mmol/L Potassium (3.5-5.1) mmol/L Chloride (98-107) mmol/L Carbon Dioxide (22-30) mmol/L Anion Gap mmol/L BUN (9-20) mg/dL Creatinine (0.66-1.25) mg/dL Est GFR (CKD-EPI)AfAm (>60 ml/min/1.73 sqM) Est GFR (CKD-EPI)NonAf (>60 ml/min/1.73 sqM) Glucose (74-99) mg/dL Calcium (8.4-10.2) mg/dL Total Bilirubin (0.2-1.3) mg/dL AST (17-59) U/L ALT (4-49) U/L Alkaline Phosphatase (38-126) U/L Troponin I <0.012 (0.000-0.034) ng/mL Total Protein (6.3-8.2) g/dL Albumin (3.5-5.0) g/dL Disposition Clinical Impression: Micturition syncope Disposition: HOME SELF-CARE Condition: Stable Instructions (If sedation given, give patient instructions): Syncope (ED) Additional Instructions: Please do follow-up with your primary care physician in the next day or 2 for recheck. Please also follow-up with your medical records coder the next day or 2 for recheck. Hold lacunar for 24 hours. Return for passing out, confusion or weakness, chest pain or heart racing, worsening symptoms or other concerns. Is patient prescribed a controlled substance at d/c from ED?: No Referrals: Jenaro Rivera DO [Primary Care Provider] - 1-2 days Time of Disposition: 13:03
[2022-10-24 10:56] LABS: Basophils % (A) 0 %; Eosinophils # (A) 0.2 k/uL (0-0.7); Eosinophils % (A) 2 %; HCT 39.3 % (39.0-53.0); HGB 13.4 gm/dL (13.0-17.5); Lymphocytes # (A) 1.7 k/uL (1.0-4.8); Lymphocytes % (A) 18 %; MCH 30.1 pg (25.0-35.0); MCHC 34.2 g/dL (31.0-37.0); MCV 88.1 fL (80.0-100.0); Mean Platelet Volume 7.1; Monocytes # (A) 0.5 k/uL (0-1.0); Monocytes % (A) 5 %; Neutrophils # (A) 7.1 k/uL (1.3-7.7); Neutrophils % (A) 73 %; Platelet Count 235 k/uL (150-450); RBC 4.46 m/uL (4.30-5.90); RDW 12.5 % (11.5-15.5); WBC 9.8 k/uL (3.8-10.6)
[2022-10-24 11:15] LABS: Partial Thromboplastin Time 24.8 sec (22.0-30.0); Prothrombin Time 10.8 sec (9.0-12.0)
[2022-10-24 11:16] LABS: ALT 25 U/L (4-49); AST 26 U/L (17-59); African American GFR (CKD) >90 (>60 ml/min/1.73 sqM); Albumin 4.1 g/dL (3.5-5.0); Alkaline Phosphatase 69 U/L (38-126); Anion Gap 9 mmol/L; Blood Urea Nitrogen 18 mg/dL (9-20); Carbon Dioxide 23 mmol/L (22-30); Chloride 105 mmol/L (98-107); Glucose 109 mg/dL (74-99); Non-African American GFR(CKD) >90 (>60 ml/min/1.73 sqM); Potassium 4.3 mmol/L (3.5-5.1); Sodium 137 mmol/L (137-145); Total Bilirubin 0.7 mg/dL (0.2-1.3); Total Protein 6.7 g/dL (6.3-8.2)
--- NOTE | 2022-10-24 11:19 | XR ---
EXAMINATION TYPE: XR chest 2V DATE OF EXAM: 10/24/2022 11:14 AM COMPARISON: Chest radiographs from 06/13/2020, CT low-dose lung cancer screening 07/09/2022. TECHNIQUE: XR chest 2V Frontal and lateral views of the chest. CLINICAL INDICATION:Male, 72 years old with history of syncope; FINDINGS: Lungs/Pleura: There is flattening of the diaphragm with increased lucency of the lungs. No evidence o f pneumothorax, pleural effusion or focal consolidation. Pulmonary vascularity: Unremarkable. Heart/mediastinum: Cardiomediastinal silhouette is unremarkable. Musculoskeletal: Multiple level degenerative disc disease changes seen throughout the spine. IMPRESSION: 1. No acute cardiopulmonary disease process. 2. COPD changes.
--- NOTE | 2022-10-24 11:27 | CT ---
EXAMINATION TYPE: CT brain wo con DATE OF EXAM: 10/24/2022 COMPARISON: 05/17/2020 HISTORY: Fall and hit head, on blood thinners. CT DLP: 1290.4 mGycm Automated exposure control for dose reduction was used. FINDINGS: Mild to moderate generalized degenerative change. Low attenuation in the white matter is nonspecific. There appears to be a soft tissue hematoma along the left superior cerebral convexity measuring 1.0 x 1.7 cm. Calvarium is intact. Orbits are symmetric. There are changes of extensive chronic sinusitis with nasal septal deviation. T here is no midline shift or mass effect. No acute intracranial hemorrhage. IMPRESSION: 1. THERE IS A 1.0 X 1.7 CM SOFT TISSUE SUBCUTANEOUS HEMATOMA ALONG THE LEFT SUPERIOR PARIETAL CONVEXI TY. CALVARIUM INTACT. 2. NO ACUTE INTRACRANIAL HEMORRHAGE OR MASS EFFECT.
[2022-10-24 12:42] VITALS: BP 119/67; PULSE 49
== END 2022-10-24 13:30 | disposition home or self-care (01) ==
LOC: EC 10:01
DX: R55 Syncope and collapse (principal); R51.9 Headache, unspecified; I10 Essential (primary) hypertension; E78.5 Hyperlipidemia, unspecified; F17.200 Nicotine dependence, unspecified, uncomplicated; Z79.899 Other long term (current) drug therapy
CPT/HCPCS: 36415; 70450; 71046; 80053; 84484; 85025; 85610; 85730; 93005; 99285

== ENCOUNTER → 2022-11-03 | Outpatient (CLI) | payer MEDICARE ==
[2022-11-03 15:45] LABS: ALT 34 U/L (10-49); AST 30 U/L (14-35); Chol/HDL Ratio 2.96 Ratio
== END | disposition home or self-care (01) ==
LOC: LABWHC1 10:23
PROVIDERS: ATTEND Nurse Practitioner Adult Health
DX: E78.2 Mixed hyperlipidemia (principal)
CPT/HCPCS: 36415; 80061; 84450; 84460

== ENCOUNTER → 2023-07-22 | Outpatient (CLI) | payer MEDICARE ==
--- NOTE | 2023-07-22 13:47 | CTL ---
EXAMINATION TYPE: CT Low Dose Lung DATE OF EXAM ORDERED: 07/22/2023 HISTORY: . Low Dose CT Lung Screening CT DLP: 147.[address] CTDI: 4.0 mGy IV CONTRAST USED: None. SCREENING VISIT: 3 COMPARISON: 07/09/2022 TECHNIQUE: Low dose computed tomography scan was performed through the chest at 1 millimeter thick se ctions and reconstructed images in the coronal plane at [address] DIAGNOSTIC QUALITY: Satisfactory FINDINGS: LUNG NODULES: 0.6 cm pleural-based posterior left upper lung field nodule is stable. No new nodules identified. LUNGS: COPD: Severity: Mild Fibrosis: Severity:None Lymph nodes: None Other findings: None RIGHT PLEURAL SPACE: Effusion: None Calcification: None Thickening: None Pneumothorax: None LEFT PLEURAL SPACE: Effusion: None Calcification: None Thickening: None Pneumothorax: None HEART: Heart Size: Mildly enlarged Coronary calcification: Mild Pericardial effusion: None OTHER FINDINGS: Upper abdomen: No significant abnormality Bony thorax: Degenerative changes Supraclavicular region: No significant abnormalityOther: No significant abnormalityI IMPRESSION: Benign FOLLOW UP CT CHEST RECOMMENDATION: Follow-up screening in one year CT LUNG RAD: LUNG RAD CATEGORY 2 benign appearance and behavior
== END | disposition home or self-care (01) ==
LOC: RADCTMAIN 11:54
PROVIDERS: ATTEND Family Medicine
DX: Z12.2 Encounter for screening for malignant neoplasm of respiratory organs (principal); R91.1 Solitary pulmonary nodule; F17.210 Nicotine dependence, cigarettes, uncomplicated; J44.9 Chronic obstructive pulmonary disease, unspecified; I25.10 Atherosclerotic heart disease of native coronary artery without angina pectoris; I51.7 Cardiomegaly
CPT/HCPCS: 71271

== ENCOUNTER → 2023-09-14 | Outpatient (CLI) | payer MEDICARE ==
[2023-09-14 17:11] LABS: ALT 34 U/L (10-49); AST 27 U/L (14-35); Albumin 4.4 g/dL (3.8-4.9); Albumin/Globulin Ratio 1.83 Ratio (1.60-3.17); Alkaline Phosphatase 80 U/L (41-126); BUN/Creat Ratio 27.11 Ratio (12.00-20.00); Blood Urea Nitrogen 24.4 mg/dL (9.0-27.0); Calcium 9.5 mg/dL (8.7-10.3); Carbon Dioxide 24.7 mmol/L (21.6-31.8); Chloride 105 mmol/L (96-109); Chol/HDL Ratio 3.67 Ratio; Globulin 2.4 g/dL (1.6-3.3); Glucose 120 mg/dL (70-110); LDL Cholesterol,Calculated 80.9 mg/dL (0.0-131.0); Sodium 140 mmol/L (135-145); Total Bilirubin 0.4 mg/dL (0.3-1.2); Total Protein 6.8 g/dL (6.2-8.2)
== END | disposition home or self-care (01) ==
LOC: LABWHC1 09:10
PROVIDERS: ATTEND Internal Medicine Interventional Cardiology
DX: I10 Essential (primary) hypertension (principal); E78.2 Mixed hyperlipidemia
CPT/HCPCS: 36415; 80053; 80061

== ENCOUNTER → 2024-03-15 | Outpatient (CLI) | payer MEDICARE ==
[2024-03-15 15:19] LABS: ALT 25 U/L (10-49); AST 28 U/L (14-35); Albumin 4.5 g/dL (3.8-4.9); Albumin/Globulin Ratio 1.55 Ratio (1.60-3.17); Alkaline Phosphatase 95 U/L (41-126); Blood Urea Nitrogen 19.8 mg/dL (9.0-27.0); Calcium 9.8 mg/dL (8.7-10.3); Carbon Dioxide 26.4 mmol/L (21.6-31.8); Chloride 102 mmol/L (96-109); Chol/HDL Ratio 5.03 Ratio; Globulin 2.9 g/dL (1.6-3.3); Glucose 103 mg/dL (70-110); LDL Cholesterol,Calculated 115.6 mg/dL (0.0-131.0); Potassium 5.4 mmol/L (3.5-5.5); Sodium 139 mmol/L (135-145); Total Bilirubin 0.4 mg/dL (0.3-1.2); Total Protein 7.4 g/dL (6.2-8.2)
== END | disposition home or self-care (01) ==
LOC: LABWHC1 11:23
PROVIDERS: ATTEND Internal Medicine Interventional Cardiology
DX: I10 Essential (primary) hypertension (principal); E78.2 Mixed hyperlipidemia
CPT/HCPCS: 36415; 80053; 80061

== ENCOUNTER → 2024-09-12 | Outpatient (CLI) | payer MEDICARE ==
[2024-09-12 15:20] LABS: BUN/Creat Ratio 25.88 Ratio (12.00-20.00); Blood Urea Nitrogen 20.7 mg/dL (9.0-27.0); Chloride 107 mmol/L (96-109); Chol/HDL Ratio 5.28 Ratio; Glucose 108 mg/dL (70-110); LDL Cholesterol,Calculated 93.6 mg/dL (0.0-131.0); Potassium 4.7 mmol/L (3.5-5.5); Sodium 140 mmol/L (135-145)
[2024-09-12 15:21] LABS: ALT 29 U/L (10-49); AST 26 U/L (14-35); Albumin 4.2 g/dL (3.8-4.9); Albumin/Globulin Ratio 1.62 Ratio (1.60-3.17); Alkaline Phosphatase 75 U/L (41-126); Carbon Dioxide 23.2 mmol/L (21.6-31.8); Globulin 2.6 g/dL (1.6-3.3); Prostate Specific Antigen 0.04 ng/mL (0.000-6.500); Total Bilirubin 0.3 mg/dL (0.3-1.2); Total Protein 6.8 g/dL (6.2-8.2)
== END | disposition home or self-care (01) ==
LOC: LABWHC1 11:05
PROVIDERS: ATTEND Internal Medicine Interventional Cardiology
DX: E78.2 Mixed hyperlipidemia (principal)
CPT/HCPCS: 36415; 80053; 80061; 84153